=== PATIENT | male | born 1930 | race Caucasian/White ===

== ENCOUNTER 2016-05-31 10:04 | Inpatient (IN) | payer MEDICARE, OTHER ==
[2016-05-31] MEDS ORDERED: NS 0.9% 1000 ML* 1,000 ML IV ONE (10:16)
[2016-05-31 10:52] LABS: Add Diff/Slide Review? Slide Review Added; Comments Flag Yes; Hematocrit 42 % (42-52); Hemoglobin 14.3 g/dl (14.0-18.0); Mean Corpuscular HGB Conc 34 g/dl (31-36); Mean Corpuscular Hemoglobin 29 pg (27-31); Mean Corpuscular Volume 86 fL (80-94); Mean Platelet Volume 8 um3 (7.4-10.4); Red Blood Count 4.91 10^6/ul (4.0-5.4); Red Cell Distribution Width 14 % (10.5-15); White Blood Count 13.8 10^3/ul (3.5-10.8)
--- NOTE | 2016-05-31 10:52 | RAD ---
Indication: Altered mental status. Recent falls. Fever. Comparison: September 22, 2015. Technique: Upright AP 1025 hours Report: Minimal prominence of the interstitial markings without gross change. No alveolar consolidation, focal pulmonary lesion, pleural effusion, pneumothorax. Median sternotomy wires and prosthetic aortic valve. Upper normal heart size. Unremarkable central pulmonary vasculature. IMPRESSION: No compelling evidence for pneumonia. Negative for pulmonary edema.
[2016-05-31 11:07] LABS: ALT 15 U/L (7-52); AST 19 U/L (13-39); Albumin 3.9 g/dL (3.2-5.2); Alkaline Phosphatase 126 U/L (34-104); Anion Gap 10 mmol/L (2-11); BUN/Creatinine Ratio 31.9 (8-20); Blood Urea Nitrogen 23 mg/dL (6-24); CO2 Carbon Dioxide 23 mmol/L (22-32); Calcium 9.1 mg/dL (8.6-10.3); Chloride 102 mmol/L (101-111); Creatine Kinase 58 U/L (10-223); EGFR African American 132.8 (>60); EGFR Non-African American 103.3 (>60); Globulin 3.3 g/dL (2-4); Glucose 104 mg/dL (70-100); Magnesium 1.7 mg/dL (1.9-2.7); Potassium 3.2 mmol/L (3.5-5.0); Sodium 135 mmol/L (133-145); Total Protein 7.2 g/dL (6.4-8.9)
[2016-05-31 11:11] LABS: Troponin I 0.03 ng/mL (<0.04)
[2016-05-31] MEDS ORDERED: Acetaminophen TAB* 325 MG PO ONE (11:33)
[2016-05-31 12:01] LABS: Alcohol < 10 mg/dL (<10)
[2016-05-31 12:12] LABS: TSH (Thyroid Stimulating Horm) 1.67 mcIU/mL (0.34-5.60)
--- NOTE | 2016-05-31 12:12 | RAD ---
Indication: Altered mental status. Fall. Fever. Comparison: October 10, 2015 CT. Technique: Noncontrast CT vertex of skull through foramen magnum. Report: Unremarkable cerebral sulci. Mild to moderate prominence of the ventricles reflecting volume loss. Patent basal cisterns. Negative for alexander matter white matter obscuration, intra or extra-axial hemorrhage, or mass effect. Decreased density in the periventricular and subcortical white matter while non-specific is most likely due to chronic microangiopathy. Large vessel atherosclerotic arterial calcification at the skull base. Negative for fracture or suspicious lesion of the calvarium or skull base. Clear visualized paranasal sinuses and mastoid air spaces. Negative for scalp hematoma. IMPRESSION: 1. No evidence for traumatic injury or acute intracranial process. 2. Mild involutional change and stigmata of chronic small vessel ischemic disease. 3. No significant interval change compared with the September 22, 2015 exam.
[2016-05-31] MEDS ORDERED: Potassium Chlor TAB* 20 MEQ TAB.ER PO ONE (13:05)
[2016-05-31] MEDS ORDERED: Magnesium Oxide TAB* 400 MG PO ONE (13:06)
[2016-05-31] MEDS ORDERED: Oseltamivir CAP* 75 MG PO ONE (13:06)
--- NOTE | 2016-05-31 13:54 | ED ---
Jessica Blevins Rebecca, scribed for Gold Paredes MD on 05/31/16 at 1017 . Adult Trauma - HPI Summary HPI Summary: Pt is a 65 y/o M BIBA who presents to ED s/p multiple falls. Reports falls were a few days ago and that he has fallen 2-3x. Reports that he recently stubbed his toe, leading to the falls. Denies currently experiencing any pain including head, neck, back or hip pain. Denies CP, SOB, LOC. C/o coughing and low grade fever. - History of Current Complaint Stated Complaint: FALL / FEVER Time Seen by Provider: 05/31/16 10:05 Hx Obtained From: Patient Mechanism of Injury: Fall - 2-3x a few days ago Loss of Consciousness: no loss of consciousness Current Severity: None Pain Intensity: 0 Pain Scale Used: 0-10 Numeric Aggravating Factor(s): Other - No pain Alleviating Factor(s): Other - No pain Associated Signs & Symptoms: Positive: Cough, Fever - low grade. Negative: SOB , Chest Pain, Loss of Consciousness - Additional Pertinent History Primary Care Physician: [id number] - Allergy/Home Medications Allergies/Adverse Reactions: Allergies Allergy/AdvReac Type Severity Reaction Status Date / Time SULFA DRUGS Allergy VIOLENT Uncoded 01/31/15 13:17 BEHAVIOR- VOCALLY-1940'S PMH/Surg Hx/FS Hx/Imm Hx Endocrine/Hematology History: Denies: Hx Diabetes, Hx Thyroid Disease Cardiovascular History: Reports: Hx Cardiomegaly, Hx Coronary Artery Disease - 2010- TRIPLE BYPASS, Hx Hypertension, Hx Valvular Heart Disease - AORTIC VALVE REPLACEMENT-01/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 KAMARA- [employer] Denies: Hx Pacemaker/ICD Respiratory History: Denies: Hx Asthma, Hx Chronic Obstructive Pulmonary Disease (COPD) GI History: Denies: Hx Ulcer History: Reports: Hx Benign Prostatic Hyperplasia Denies: Hx Dialysis, Hx Renal Disease Comment Only: Other Problems/Disorders - urinary surgery unable to specify ; urinary incontinence with Tyson, TURP Musculoskeletal History: Reports: Other Musculoskeletal History - INJURY TO LOWER BACK VERTABRAE ON THE RIGHT SIDE - DID PHYSICAL THERAPY FOR Sensory History: Reports: Hx Cataracts, Hx Contacts or Glasses, Hx Glaucoma Denies: Hx Legally Blind, Hx Deafness, Hx Hearing Aid, Hx Hearing Problem Opthamlomology History: Reports: Hx Cataracts, Hx Contacts or Glasses, Hx Glaucoma Denies: Hx Legally Blind Neurological History: Reports: Hx Transient Ischemic Attacks (TIA) - 04/2013 Denies: Other Neuro Impairments/Disorders Psychiatric History: Denies: Hx Panic Disorder - Surgical History Surgery Procedure, Year, and Place: Triple bypass 2010 with Porcine tissue heart valve(pig valve safe upto 3Tmagnet)-[facility]. Right knee replacement - [facility]. TURP. tonsils. appendix. bilater cataract Hx Anesthesia Reactions: No - Immunization History Date of Tetanus Vaccine: PT STATES UNSURE Date of Influenza Vaccine: 2012 Infectious Disease History: No Infectious Disease History: Denies: Hx Clostridium Difficile, Hx Hepatitis, Hx Human Immunodeficiency Virus (HIV), Hx of Known/Suspected MRSA, Hx Shingles, Hx Tuberculosis, Hx Known/ Suspected VRE, Hx Known/Suspected VRSA, History Other Infectious Disease, Traveled Outside the [place] in Last 30 Days - Family History Known Family History: Positive: Cardiac Disease, Other - Colon CA - Social History Alcohol Use: Daily Alcohol Amount: 3-4 OUNCES DAILY Substance Use Type: Reports: None Hx Tobacco Use: Yes - [employer] Smoking Status (MU): Former Smoker Type: Cigars Amount Used/How Often: X 2 YEARS Have You Smoked in the Last Year: No Review of Systems Positive: Fever - low grade Negative: Chest Pain Positive: Cough. Negative: Shortness Of Breath Positive: Arthralgia - Denies any pain including neck, hip or back pain Negative: Headache, Syncope - Denies LOC All Other Systems Reviewed And Are Negative: Yes Physical Exam - Summary Physical Exam Summary: He is a fragile, elderly man that appears very dry and slightly confused. Slight rales in the bases auscultated. Triage Information Reviewed: Yes Vital Signs On Initial Exam: Initial Vitals Temp Pulse Resp BP Pulse Ox 100.1 F 87 18 156/104 91 05/31/16 10:18 05/31/16 10:18 05/31/16 10:18 05/31/16 10:18 05/31/16 10:18 Vital Signs Reviewed: Yes Appearance: Positive: No Pain Distress Skin: Positive: Warm, Skin Color Reflects Adequate Perfusion, Dry Head/Face: Positive: Normal Head/Face Inspection Eyes: Positive: EOMI, NELL ENT: Positive: Other - Very dry oral mucosa Neck: Positive: Supple, Nontender Respiratory/Lung Sounds: Positive: Breath Sounds Present, Rales - slight rales in the bases Cardiovascular: Positive: RRR, Pulses are Symmetrical in both Upper and Lower Extremities Musculoskeletal: Positive: Normal, Strength/ROM Intact Neurological: Positive: Normal, Sensory/Motor Intact, Other - Slightly confused Psychiatric: Positive: Normal, Affect/Mood Appropriate Diagnostics - Vital Signs Vital Signs Temp Pulse Resp BP Pulse Ox 05/31/16 13:00 78 101/48 89 05/31/16 12:30 79 19 120/73 95 05/31/16 12:00 94 22 144/75 93 05/31/16 11:31 87 91 05/31/16 11:30 142/72 05/31/16 11:06 92 20 05/31/16 11:02 101.3 F 92 20 138/73 92 05/31/16 10:18 100.1 F 87 18 156/104 91 - Laboratory Lab Results: Lab Results 05/31/16 05/31/16 05/31/16 Range/Units 10:40 10:40 10:40 WBC 13.8 H (3.5-10.8) 10^3/ul RBC 4.91 (4.0-5.4) 10^6/ul Hgb 14.3 (14.0-18.0) g/dl Hct 42 (42-52) % MCV 86 (80-94) fL MCH 29 (27-31) pg MCHC 34 (31-36) g/dl RDW 14 (10.5-15) % Plt Count 124 L (150-450) 10^3/ul MPV 8 (7.4-10.4) um3 Neut % (Auto) 92.1 H (38-83) % Lymph % (Auto) 3.0 L (25-47) % [place] % (Auto) 4.5 (1-9) % Eos % (Auto) 0.1 (0-6) % Baso % (Auto) 0.3 (0-2) % Absolute Neuts (auto) 12.7 H (1.5-7.7) 10^3/ul Absolute Lymphs (auto) 0.4 L (1.0-4.8) 10^3/ul Absolute Monos (auto) 0.6 (0-0.8) 10^3/ul Absolute Eos (auto) 0 (0-0.6) 10^3/ul Absolute Basos (auto) 0 (0-0.2) 10^3/ul Absolute Nucleated RBC 0 10^3/ul Nucleated RBC % 0 Sodium 135 (133-145) mmol/L Potassium 3.2 L (3.5-5.0) mmol/L Chloride 102 (101-111) mmol/L Carbon Dioxide 23 (22-32) mmol/L Anion Gap 10 (2-11) mmol/L BUN 23 (6-24) mg/dL Creatinine 0.72 (0.67-1.17) mg/dL Est GFR ( Amer) 132.8 (>60) Est GFR (Non-Af Amer) 103.3 (>60) BUN/Creatinine Ratio 31.9 H (8-20) Glucose 104 H (70-100) mg/dL Lactic Acid 1.1 (0.5-2.0) mmol/L Calcium 9.1 (8.6-10.3) mg/dL Magnesium 1.7 L (1.9-2.7) mg/dL Total Bilirubin 1.90 H (0.2-1.0) mg/dL AST 19 (13-39) U/L ALT 15 (7-52) U/L Alkaline Phosphatase 126 H (34-104) U/L Ammonia (16-53) mol/L Total Creatine Kinase 58 (10-223) U/L Troponin I 0.03 (<0.04) ng/mL Total Protein 7.2 (6.4-8.9) g/dL Albumin 3.9 (3.2-5.2) g/dL Globulin 3.3 (2-4) g/dL Albumin/Globulin Ratio 1.2 (1-3) TSH 1.67 (0.34-5.60) mcIU/mL Serum Alcohol < 10 (<10) mg/dL Influenza A (Rapid) (Negative) Influenza B (Rapid) (Negative) 05/31/16 05/31/16 Range/Units 10:40 11:00 WBC (3.5-10.8) 10^3/ul RBC (4.0-5.4) 10^6/ul Hgb (14.0-18.0) g/dl Hct (42-52) % MCV (80-94) fL MCH (27-31) pg MCHC (31-36) g/dl RDW (10.5-15) % Plt Count (150-450) 10^3/ul MPV (7.4-10.4) um3 Neut % (Auto) (38-83) % Lymph % (Auto) (25-47) % [place] % (Auto) (1-9) % Eos % (Auto) (0-6) % Baso % (Auto) (0-2) % Absolute Neuts (auto) (1.5-7.7) 10^3/ul Absolute Lymphs (auto) (1.0-4.8) 10^3/ul Absolute Monos (auto) (0-0.8) 10^3/ul Absolute Eos (auto) (0-0.6) 10^3/ul Absolute Basos (auto) (0-0.2) 10^3/ul Absolute Nucleated RBC 10^3/ul Nucleated RBC % Sodium (133-145) mmol/L Potassium (3.5-5.0) mmol/L Chloride (101-111) mmol/L Carbon Dioxide (22-32) mmol/L Anion Gap (2-11) mmol/L BUN (6-24) mg/dL Creatinine (0.67-1.17) mg/dL Est GFR ( Amer) (>60) Est GFR (Non-Af Amer) (>60) BUN/Creatinine Ratio (8-20) Glucose (70-100) mg/dL Lactic Acid (0.5-2.0) mmol/L Calcium (8.6-10.3) mg/dL Magnesium (1.9-2.7) mg/dL Total Bilirubin (0.2-1.0) mg/dL AST (13-39) U/L ALT (7-52) U/L Alkaline Phosphatase (34-104) U/L Ammonia 39 (16-53) mol/L Total Creatine Kinase (10-223) U/L Troponin I (<0.04) ng/mL Total Protein (6.4-8.9) g/dL Albumin (3.2-5.2) g/dL Globulin (2-4) g/dL Albumin/Globulin Ratio (1-3) TSH (0.34-5.60) mcIU/mL Serum Alcohol (<10) mg/dL Influenza A (Rapid) Negative (Negative) Influenza B (Rapid) Positive H (Negative) Result Diagrams: 05/31/16 10:40 05/31/16 10:40 Lab Statement: Any lab studies that have been ordered have been reviewed, and results considered in the medical decision making process. - Radiology CXR Xray Interpretation: No Acute Changes - No compelling evidence for pneumonia. Negative for pulmonary edema. Radiology Interpretation Completed By: Radiologist - CT Brain CT CT Interpretation: No Acute Changes - 1. No evidence for traumatic injury or acute intracranial process. 2. Mild involutional change and stigmata of chronic small vessel ischemic disease. 3. No significant interval change compared with the September 22, [address] Interpretation Completed By: Radiologist - EKG 1235 Cardiac Rate: NL - 81 bpm EKG Rhythm: Sinus Rhythm ST Segment: Normal - No ST elevations Adult Trauma Course/Dx - Course Assessment/Plan: Pt is a 65 y/o M BIBA who presents to ED s/p multiple falls. Reports falls were a few days ago and that he has fallen 2-3x. Reports that he recently stubbed his toe, leading to the falls. Denies currently experiencing any pain including head, neck, back or hip pain. Denies CP, SOB, LOC. C/o coughing and low grade fever. Bloodwork shows WBC of 13.8, platelet of 124, potassium of 3.2, glucose of 104, magnesium of 1.7, and Influenza B positive. CXR reveals no acute pathology. Head CT shows no acute intracranial pathology. In the ED course, pt was given potassium chloride for hypokalemia and magnesium for the hypomagnesemia. The pt also was given Tamiflu for the Influenza type B positive. The pt also was hydrated with fluids. Seeing as the pt appears very weak and has had multiple falls at home, I believe pt is unsafe for D/C. Therefore I discussed the case with Dr. Ortiz who accepts pt for admission. Pt is hemodynamically stable and AxOx3. - Diagnoses Differential Diagnosis/HQI/PQRI: Positive: Abrasion(s), Contusion(s), Sprain, Strain, Other - fall, CVA, TIA, Sepsis Provider Diagnoses: Influenza B, Weakness, Multiple falls, Confusion - Physician Notifications Discussed Care Of Patient With: Dr. Ortiz, hospitalist, who accepts pt for admission. Time Discussed With Above Provider: 13:00 Discharge - Discharge Plan Condition: Stable Disposition: ADMITTED TO [facility] Referrals: Trevor Ku MD [Primary Care Provider] - The documentation as recorded by the Jessica villavicencio Rebecca accurately reflects the service I personally performed and the decisions made by , Gold Paredes MD.
[2016-05-31] MEDS ORDERED: Albuterol 2.5 MG/3 ML NEB.SOL* (0.083%) INH PRN (14:02)
[2016-05-31] MEDS: Potassium Chlor TAB* 20 MEQ TAB.ER PO SCH ×2 (14:48→22:03)
[2016-05-31] MEDS: Enoxaparin(*) 40 MG/0.4 ML SYR SUBCUT SCH (14:48)
[2016-05-31] MEDS: NS 0.9% 1000 ML* 1,000 ML IV SCH (14:48)
[2016-05-31] MEDS ORDERED: Atorvastatin* 20 MG TAB PO SCH (18:00)
[2016-05-31] MEDS ORDERED: Latanoprost 0.005%* 2.5 ml BTL BOTH EYES SCH (18:00)
[2016-05-31] MEDS: Latanoprost 0.005%* 2.5 ml BTL BOTH EYES SCH (22:03)
[2016-05-31] MEDS: Atorvastatin* 20 MG TAB PO SCH (22:03)
[2016-05-31] MEDS: Acetaminophen TAB* 325 MG PO PRN (22:04)
[2016-05-31] MEDS: Oseltamivir CAP* 75 MG PO SCH (22:04)
--- NOTE | 2016-05-31 22:37 | HP ---
HISTORY AND PHYSICAL: DATE OF ADMISSION: 05/31/16 PRIMARY CARE PHYSICIAN: Trevor Ku MD CHIEF COMPLAINT: Fall and fever. HISTORY OF PRESENT ILLNESS: Mr. Hoffman is an 85-year-old male with a past medical history of hypertension; hyperlipidemia; CAD, status post MD and CABG; BPH; and TIAs, who presents to the hospital with weakness this morning as well as fever. The patient states symptoms began about a week ago with a cough that has been productive of yellowish sputum. He is a resident at [facility] and lives with his . He apparently saw a nurse practitioner there on because of the cough and they did not think there was anything to be done. Cough has persisted and this morning, the patient went to the bathroom and after getting to bed, he awoke his saying that he had to go to the bathroom again; however, he felt very week and had a lot of difficulty even sitting up. He was eventually able to get his legs to the side of the bed and dangle them and then he slid down the bed on to the floor, did not strike his head. His could not get him up off the floor. She took his temperature and he had a fever over 100. She called the nurse to take his vital signs, which were otherwise unremarkable. He subsequently called EMS. The patient denies any sick contacts. He is not on home oxygen. He had no fever until today. Denies any chest pain, shortness of breath, abdominal pain, nausea, vomiting, diarrhea, or constipation. He has been having good p.o. intake. PAST MEDICAL HISTORY: Hypertension; hyperlipidemia; CAD, status post MD and CABG; BPH; urinary retention; gout; glaucoma; and TIA. PAST SURGICAL HISTORY: CABG, aortic valve replacement with a porcine valve, TURP, right TKA, and cataract surgery. HOME MEDICATIONS: 1. Potassium 20 mEq by mouth 3 times daily. 2. Ambien 5 mg by mouth at bedtime as needed for insomnia. 3. Dutasteride 0.5 mg by mouth daily. 4. Latanoprost 1 drop both eyes nightly. 5. Istalol 1 drop in both eyes daily. 6. Atorvastatin 20 mg by mouth nightly. 7. Plavix 75 mg by mouth daily. 8. Amlodipine 2.5 mg by mouth daily. 9. Allopurinol 150 mg by mouth daily. FAMILY HISTORY: Significant for father with CAD and Alzheimer's and mother with CVA. SOCIAL HISTORY: The patient smoked for a short period a long and long time ago. He has occasional alcohol, maybe 1 drink every 2 weeks. Denies any illicit drug use. He is a former [employer] at [employer]. REVIEW OF SYSTEMS: A 12-point review of systems is negative except for that is noted in the HPI. PHYSICAL EXAMINATION GENERAL: The patient is an elderly frail-appearing male, lying in bed , in no apparent distress. VITAL SIGNS: On admission, temperature 100.1, subsequently 101.3; heart rate of 87; respiratory rate of 18; O2 saturation 91% on 2 L subsequently about to 4 ; and initial blood pressure 156/104 followed by 138/73. HEENT: Anicteric sclera. Dry mucous membranes. No cervical adenopathy. LUNGS: With moderate air movement. Some faint wheezing and scattered rales. CARDIOVASCULAR: Regular rate and rhythm. S1, S2 present. No murmurs, gallops , and rubs. ABDOMEN: Soft, nontender, and nondistended. Bowel sounds positive. EXTREMITIES: No cyanosis, clubbing, or edema. NEURO: The patient is alert and oriented x3. No focal neurological deficits. DIAGNOSTIC STUDIES/LAB DATA: White blood cell count of 13.8, hematocrit of 42 , and platelets of 124. Sodium of 135, potassium 3.2, chloride of 102, carbon dioxide of 23, BUN of 23, creatinine of 0.72, glucose of 104, lactic acid of 1.1 , and magnesium of 1.7. Total bilirubin of 1.9, AST of 19, ALT of 15, and alk phos of 126. Troponin 0.03. TSH of 1.67. Rapid influenza positive for influenza type B. CT of head shows no acute disease. EKG personally reviewed shows normal sinus rhythm with PVCs. Chest x-ray, personally reviewed, shows no acute disease. ASSESSMENT AND PLAN: Acute hypoxemic respiratory failure secondary to influenza type B in an 85-year-old male with past medical history of hypertension, hyperlipidemia, coronary artery disease, and transient ischemic attack. 1. Acute hypoxic respiratory failure secondary to influenza: The patient was on 4 L in the ED; however, has been weaned to 2. Given a dose of Tamiflu in the ED, which we will continue b.i.d. for 5 days total. We will order some p.r.n. nebulizer therapy and try to wean his oxygen. I do not think there is a bacterial infection. I will check a procalcitonin, however. UA is also pending at this time. We will continue IV fluids at 100 cc per hour. 2. Electrolyte abnormalities: Potassium and magnesium repleted. 3. Hypertension: We will hold home amlodipine for now. 4. Benign prostatic hyperplasia: Finasteride in place of home dutasteride. 5. Coronary artery disease: Continue home Plavix and atorvastatin. 6. Cataracts: Continue eye drops. 7. Gout: Continue home allopurinol. 8. DVT prophylaxis: Lovenox subcu. 9. Code status: The patient wishes to be DNR with a trial of intubation. MOLST form filled out without effect. The patient's and surrogate decision maker, Dominique Arcetfried, is at the bedside. Phone number is [phone]. TIME SPENT: Total time spent on this admission 45 minutes, with over half the time spent [id number] with the patient in counseling and coordinating care. CC: [place] [id number]/[facility] #: [id number] MTDD
[2016-06-01 01:26] LABS: Urine Bacteria Absent (Absent); Urine Bilirubin Negative (Negative); Urine Glucose Negative (Negative); Urine Nitrite Negative (Negative)
[2016-06-01] MEDS: NS 0.9% 1000 ML* 1,000 ML IV SCH (03:23)
[2016-06-01] MEDS: Acetaminophen TAB* 325 MG PO PRN (05:05)
[2016-06-01 08:33] LABS: Hematocrit 38 % (42-52); Hemoglobin 12.9 g/dl (14.0-18.0); Mean Corpuscular HGB Conc 34 g/dl (31-36); Mean Corpuscular Hemoglobin 29 pg (27-31); Mean Corpuscular Volume 87 fL (80-94); Mean Platelet Volume 9 um3 (7.4-10.4); Red Blood Count 4.38 10^6/ul (4.0-5.4); Red Cell Distribution Width 14 % (10.5-15)
[2016-06-01 08:45] LABS: Add Diff/Slide Review? Slide Review Added; Comments Flag Yes
[2016-06-01 08:48] LABS: BUN/Creatinine Ratio 26.7 (8-20); Calcium 8.5 mg/dL (8.6-10.3); EGFR African American 126.7 (>60); EGFR Non-African American 98.5 (>60); Globulin 2.7 g/dL (2-4); Total Bilirubin 1.7 mg/dL (0.2-1.0); Total Protein 5.7 g/dL (6.4-8.9)
[2016-06-01] MEDS: Finasteride TAB* 5 MG PO SCH (09:22)
[2016-06-01] MEDS: Potassium Chlor TAB* 20 MEQ TAB.ER PO SCH ×3 (09:22→21:28)
[2016-06-01] MEDS: Oseltamivir CAP* 75 MG PO SCH ×2 (09:22→21:28)
[2016-06-01] MEDS: Clopidogrel TAB* 75 MG PO SCH (09:22)
[2016-06-01] MEDS: Allopurinol TAB* 300 MG PO SCH (09:22)
[2016-06-01 09:43] LABS: Immature Granulocytes 15 % (0-9); Metamyelocytes % 1 % (0-2); Neutrophil % 69 % (38-83); RBC Morphology Normal (Normal)
[2016-06-01] MEDS ORDERED: Furosemide IV* 10 MG/ML 2 ML VIAL (20 MG) IV ONE (09:54)
--- NOTE | 2016-06-01 10:01 | PN ---
Subjective Date of Service: 06/01/16 Interval History: Patient seen this morning. Reports he did not sleep well, very upset about this. Still coughing but feels it is improved. Has been weaned off of O2 at rest however had significant drop to low 80s with ambulation. No further fever or chills. Family History: Unchanged from Admission Social History: Unchanged from Admission Past Medical History: Unchanged from Admission Objective Active Medications: Acetaminophen (Tylenol Tab*) 650 mg PO Q4H PRN Albuterol (Ventolin 2.5 Mg/3 Ml Neb.Daelia*) 2.5 mg INH Q4H PRN Allopurinol (Zyloprim Tab*) 150 mg PO QAM KONRAD Atorvastatin Calcium (Lipitor*) 20 mg PO BEDTIME KONRAD Clopidogrel Bisulfate (Plavix Tab*) 75 mg PO QAM KONRAD Enoxaparin Sodium (Lovenox(*)) 40 mg SUBCUT Q24H KONRAD Finasteride (Proscar Tab*) 5 mg PO DAILY KONRAD Latanoprost (Xalatan 0.005%*) 1 drop BOTH EYES BEDTIME KONRAD Oseltamivir Phosphate (Tamiflu Cap*) 75 mg PO BID KONRAD Potassium Chloride (Klor Con Er Tab*) 20 meq PO TID KONRAD Zolpidem Tartrate (Ambien Tab*) 5 mg PO BEDTIME PRN Vital Signs 05/31/16 05/31/16 05/31/16 14:13 14:19 14:37 Temperature 98.1 F 98.1 F Pulse Rate 88 88 Respiratory 16 16 16 Rate Blood Pressure 119/52 119/52 (mmHg) O2 Sat by Pulse 91 93 Oximetry 06/01/16 06/01/16 06/01/16 07:50 08:00 09:21 Temperature 97.6 F Pulse Rate 65 66 Respiratory 14 16 16 Rate Blood Pressure 115/62 (mmHg) O2 Sat by Pulse 92 94 Oximetry Oxygen Devices in Use Now: None Appearance: Elderly, frail-appearing M, laying in bed in NAD Eyes: No Scleral Icterus Ears/Nose/Mouth/Throat: Mucous Membranes Moist Neck: NL Appearance and Movements; NL JVP Respiratory: Symmetrical Chest Expansion and Respiratory Effort, - - No wheezing , absent BS in bases with some rales Cardiovascular: NL Sounds; No Murmurs; No JVD, RRR Abdominal: NL Sounds; No Tenderness; No Distention Lymphatic: No Cervical Adenopathy Extremities: No Edema Skin: No Rash or Ulcers Neurological: Alert and Oriented x 3 Result Diagrams: 06/01/16 08:04 06/01/16 08:01 Additional Lab and Data: Lab Results 05/31/16 05/31/16 05/31/16 Range/Units 10:40 10:40 10:40 WBC 13.8 H (3.5-10.8) 10^3/ul RBC 4.91 (4.0-5.4) 10^6/ul Hgb 14.3 (14.0-18.0) g/dl Hct 42 (42-52) % MCV 86 (80-94) fL MCH 29 (27-31) pg MCHC 34 (31-36) g/dl RDW 14 (10.5-15) % Plt Count 124 L (150-450) 10^3/ul MPV 8 (7.4-10.4) um3 Neut % (Auto) 92.1 H (38-83) % Lymph % (Auto) 3.0 L (25-47) % [place] % (Auto) 4.5 (1-9) % Eos % (Auto) 0.1 (0-6) % Baso % (Auto) 0.3 (0-2) % Absolute Neuts (auto) 12.7 H (1.5-7.7) 10^3/ul Absolute Lymphs (auto) 0.4 L (1.0-4.8) 10^3/ul Absolute Monos (auto) 0.6 (0-0.8) 10^3/ul Absolute Eos (auto) 0 (0-0.6) 10^3/ul Absolute Basos (auto) 0 (0-0.2) 10^3/ul Absolute Nucleated RBC 0 10^3/ul Nucleated RBC % 0 Sodium 135 (133-145) mmol/L Potassium 3.2 L (3.5-5.0) mmol/L Chloride 102 (101-111) mmol/L Carbon Dioxide 23 (22-32) mmol/L Anion Gap 10 (2-11) mmol/L BUN 23 (6-24) mg/dL Creatinine 0.72 (0.67-1.17) mg/dL Est GFR ( Amer) 132.8 (>60) Est GFR (Non-Af Amer) 103.3 (>60) BUN/Creatinine Ratio 31.9 H (8-20) Glucose 104 H (70-100) mg/dL Lactic Acid 1.1 (0.5-2.0) mmol/L Calcium 9.1 (8.6-10.3) mg/dL Magnesium 1.7 L (1.9-2.7) mg/dL Total Bilirubin 1.90 H (0.2-1.0) mg/dL AST 19 (13-39) U/L ALT 15 (7-52) U/L Alkaline Phosphatase 126 H (34-104) U/L Ammonia (16-53) mol/L Total Creatine Kinase 58 (10-223) U/L Troponin I 0.03 (<0.04) ng/mL Total Protein 7.2 (6.4-8.9) g/dL Albumin 3.9 (3.2-5.2) g/dL Globulin 3.3 (2-4) g/dL Albumin/Globulin Ratio 1.2 (1-3) TSH 1.67 (0.34-5.60) mcIU/mL Serum Alcohol < 10 (<10) mg/dL Influenza A (Rapid) (Negative) Influenza B (Rapid) (Negative) 05/31/16 05/31/16 Range/Units 10:40 11:00 WBC (3.5-10.8) 10^3/ul RBC (4.0-5.4) 10^6/ul Hgb (14.0-18.0) g/dl Hct (42-52) % MCV (80-94) fL MCH (27-31) pg MCHC (31-36) g/dl RDW (10.5-15) % Plt Count (150-450) 10^3/ul MPV (7.4-10.4) um3 Neut % (Auto) (38-83) % Lymph % (Auto) (25-47) % [place] % (Auto) (1-9) % Eos % (Auto) (0-6) % Baso % (Auto) (0-2) % Absolute Neuts (auto) (1.5-7.7) 10^3/ul Absolute Lymphs (auto) (1.0-4.8) 10^3/ul Absolute Monos (auto) (0-0.8) 10^3/ul Absolute Eos (auto) (0-0.6) 10^3/ul Absolute Basos (auto) (0-0.2) 10^3/ul Absolute Nucleated RBC 10^3/ul Nucleated RBC % Sodium (133-145) mmol/L Potassium (3.5-5.0) mmol/L Chloride (101-111) mmol/L Carbon Dioxide (22-32) mmol/L Anion Gap (2-11) mmol/L BUN (6-24) mg/dL Creatinine (0.67-1.17) mg/dL Est GFR ( Amer) (>60) Est GFR (Non-Af Amer) (>60) BUN/Creatinine Ratio (8-20) Glucose (70-100) mg/dL Lactic Acid (0.5-2.0) mmol/L Calcium (8.6-10.3) mg/dL Magnesium (1.9-2.7) mg/dL Total Bilirubin (0.2-1.0) mg/dL AST (13-39) U/L ALT (7-52) U/L Alkaline Phosphatase (34-104) U/L Ammonia 39 (16-53) mol/L Total Creatine Kinase (10-223) U/L Troponin I (<0.04) ng/mL Total Protein (6.4-8.9) g/dL Albumin (3.2-5.2) g/dL Globulin (2-4) g/dL Albumin/Globulin Ratio (1-3) TSH (0.34-5.60) mcIU/mL Serum Alcohol (<10) mg/dL Influenza A (Rapid) Negative (Negative) Influenza B (Rapid) Positive H (Negative) Assess/Plan/Problems-Billing Assessment: Acute hypoxemic respiratory failure 2/2 influenza B in an 85 yo M with hx of HTN , HLD, TIA, CAD, BPH - Patient Problems (1) Acute hypoxemic respiratory failure Current Visit: Yes Comment: 2/2 influenza, maybe some contribution from IVF. Will continue Tamiflu. Will give IV Lasix x1. Consider d/c with oxygen vs stay in the hospital. Procalcitonin in indeterminate range and leukocytosis resolved , no ABx. (2) HTN (hypertension) Current Visit: Yes Comment: BPs still soft, holding home amlodipine (3) CAD (coronary artery disease) Current Visit: Yes Comment: Continue Plavix and statin (4) BPH (benign prostatic hyperplasia) Current Visit: Yes Comment: Finasteride (5) DVT prophylaxis Current Visit: Yes Comment: Lovenox Status and Disposition: Pending improvement in hypoxia vs starting home O2
[2016-06-01] MEDS: Enoxaparin(*) 40 MG/0.4 ML SYR SUBCUT SCH (14:23)
[2016-06-01] MEDS: Zolpidem TAB* 5 MG PO PRN (21:28)
[2016-06-01] MEDS: Atorvastatin* 20 MG TAB PO SCH (21:28)
[2016-06-01] MEDS: Latanoprost 0.005%* 2.5 ml BTL BOTH EYES SCH (21:28)
--- NOTE | 2016-06-02 02:23 | PN ---
Progress Note - Progress Note Note: Nursing & RT concerned regarding acute hypoxia. Patient is admitted for influenza. Tonight he acutely dropped his saO2 into the 80s on 3L NC. Switching to 10L oxymask only improved him to the high-80s. Upon arrival, nursing reports he is more confused than baseline. He states he is feeling better, but when asked where he was initially states [place], but then correct to [facility]. He appears in no acute distress. Additionally, nursing reports he coughed well and his saO2 improved to the 90s for a brief period before returning to the high 80s seeming to indicate mucous plugging as an etiology. CXR: interval development of R middle & lower lobe infiltrates Vitals: otherwise stable, afebrile Lungs: moderately diminished on R, fair aeration, clear CV: RRR abdomen: SNTND extremities: W&D Assessment: plan RML & RLL pneumonia : add piperacillin/tazobactam IV : transfer to ICU : RT to try flutter valve to mobilize secretions, may use manual CPT if this is not effective : code status is DNR/trial of intubation
[2016-06-02] MEDS ORDERED: Piperac/Tazob 3.375 gm in NS* 3.375 GM/100 ML BAG IVPB ONE (02:30)
[2016-06-02] MEDS ORDERED: NS 0.9% 1000 ML* 1,000 ML IV SCH (02:30)
[2016-06-02 04:10] LABS: Hematocrit 39 % (42-52); Mean Corpuscular HGB Conc 33 g/dl (31-36); Mean Corpuscular Hemoglobin 29 pg (27-31); Mean Corpuscular Volume 87 fL (80-94); Mean Platelet Volume 8 um3 (7.4-10.4); Red Blood Count 4.48 10^6/ul (4.0-5.4); Red Cell Distribution Width 14 % (10.5-15); White Blood Count 7.6 10^3/ul (3.5-10.8)
[2016-06-02 04:17] LABS: Add Diff/Slide Review? Slide Review Added; Comments Flag Yes
[2016-06-02 04:26] LABS: BUN/Creatinine Ratio 27.6 (8-20); Calcium 9.1 mg/dL (8.6-10.3); EGFR African American 124.8 (>60); Globulin 3.1 g/dL (2-4); Magnesium 1.8 mg/dL (1.9-2.7); Potassium 4.2 mmol/L (3.5-5.0); Total Bilirubin 1.6 mg/dL (0.2-1.0); Total Protein 6.1 g/dL (6.4-8.9)
[2016-06-02 04:29] LABS: Troponin I 0.06 ng/mL (<0.04)
[2016-06-02 04:37] LABS: Immature Granulocytes 21 % (0-9); Metamyelocytes % 1 % (0-2); Neutrophil % 67 % (38-83); Reactive Lymph % 2 % (0-6)
[2016-06-02 04:39] LABS: RBC Morphology Normal (Normal); Toxic Granulation 1+
[2016-06-02] MEDS: Piperac/Tazob 3.375 gm in NS* 3.375 GM/100 ML BAG IVPB SCH ×2 (07:26→15:31)
--- NOTE | 2016-06-02 08:24 | PN ---
Subjective Date of Service: 06/02/16 Interval History: Events reviewed Oxygen desaturation to 80s with increased confusion overnight. Transferred to ICU and placed on vapotherm with improvement. This AM +cough but feels improved. Denies SOB or CP No N/V but decreased appetite No other complaints Family History: Unchanged from Admission Social History: Unchanged from Admission Past Medical History: Unchanged from Admission Objective Active Medications: Acetaminophen (Tylenol Tab*) 650 mg PO Q4H PRN PRN Reason: FEVER/PAIN Last Admin: 06/01/16 05:05 Dose: 650 mg Albuterol (Ventolin 2.5 Mg/3 Ml Neb.Adelia*) 2.5 mg INH Q4H PRN PRN Reason: SOB/WHEEZING Allopurinol (Zyloprim Tab*) 150 mg PO QAM [facility] Last Admin: 06/01/16 09:22 Dose: 150 mg Atorvastatin Calcium (Lipitor*) 20 mg PO BEDTIME [facility] Last Admin: 06/01/16 21:28 Dose: 20 mg Clopidogrel Bisulfate (Plavix Tab*) 75 mg PO QAM [facility] Last Admin: 06/01/16 09:22 Dose: 75 mg Enoxaparin Sodium (Lovenox(*)) 40 mg SUBCUT Q24H [facility] Last Admin: 06/01/16 14:23 Dose: 40 mg Finasteride (Proscar Tab*) 5 mg PO DAILY [facility] Last Admin: 06/01/16 09:22 Dose: 5 mg Piperacillin Sod/Tazobactam Sod (Zosyn 3.375 Gm In Ns Premix*) 3.375 gm in 100 mls @ 25 mls/hr IVPB Q8H [facility] Last Admin: 06/02/16 07:26 Dose: 25 mls/hr Latanoprost (Xalatan 0.005%*) 1 drop BOTH EYES BEDTIME [facility] Last Admin: 06/01/16 21:28 Dose: 1 drop Oseltamivir Phosphate (Tamiflu Cap*) 75 mg PO BID [facility] Stop: 06/04/16 21:01 Last Admin: 06/01/16 21:28 Dose: 75 mg Potassium Chloride (Klor Con Er Tab*) 20 meq PO TID [facility] Last Admin: 06/01/16 21:28 Dose: 20 meq Zolpidem Tartrate (Ambien Tab*) 5 mg PO BEDTIME PRN PRN Reason: INSOMNIA Last Admin: 06/01/16 21:28 Dose: 5 mg Vital Signs 06/01/16 06/01/16 06/01/16 20:00 20:39 23:42 Temperature 99.1 F Pulse Rate 85 97 Respiratory 20 17 16 Rate Blood Pressure 136/70 (mmHg) O2 Sat by Pulse 92 83 Oximetry 06/02/16 06/02/16 06/02/16 00:00 00:12 02:50 Temperature 99.1 F Pulse Rate 97 Respiratory 16 Rate Blood Pressure 136/70 162/118 (mmHg) O2 Sat by Pulse 85 83 Oximetry 06/02/16 06/02/16 06/02/16 02:51 03:00 03:21 Temperature 99.3 F Pulse Rate 92 94 89 Respiratory 12 27 20 Rate Blood Pressure 160/85 160/85 (mmHg) O2 Sat by Pulse 90 94 97 Oximetry 06/02/16 06/02/16 06/02/16 04:00 04:49 04:54 Temperature 99.5 F Pulse Rate 83 84 Respiratory 20 20 25 Rate Blood Pressure 160/75 160/75 (mmHg) O2 Sat by Pulse 94 93 Oximetry 06/02/16 06/02/16 06/02/16 05:00 05:06 06:00 Temperature Pulse Rate 96 79 Respiratory 24 21 22 Rate Blood Pressure 152/87 (mmHg) O2 Sat by Pulse 84 97 Oximetry 06/02/16 06/02/16 07:00 07:36 Temperature 99.6 F Pulse Rate 81 Respiratory 21 Rate Blood Pressure 154/85 (mmHg) O2 Sat by Pulse 96 Oximetry Oxygen Devices in Use Now: High Flow Nasal Cannula - 100% 30L Appearance: interactive sitting up in bed, NAD Eyes: No Scleral Icterus, PERRLA Ears/Nose/Mouth/Throat: - - dry MM Neck: NL Appearance and Movements; NL JVP, Trachea Midline Respiratory: Symmetrical Chest Expansion and Respiratory Effort, - - diffuse rhonchi Cardiovascular: RRR Abdominal: NL Sounds; No Tenderness; No Distention, No Hepatosplenomegaly Lymphatic: No Cervical Adenopathy Extremities: No Edema Neurological: Alert and Oriented x 3 Result Diagrams: 06/02/16 03:45 06/02/16 03:45 Additional Lab and Data: Lab Results 05/31/16 05/31/16 05/31/16 Range/Units 10:40 10:40 10:40 WBC 13.8 H (3.5-10.8) 10^3/ul RBC 4.91 (4.0-5.4) 10^6/ul Hgb 14.3 (14.0-18.0) g/dl Hct 42 (42-52) % MCV 86 (80-94) fL MCH 29 (27-31) pg MCHC 34 (31-36) g/dl RDW 14 (10.5-15) % Plt Count 124 L (150-450) 10^3/ul MPV 8 (7.4-10.4) um3 Neut % (Auto) 92.1 H (38-83) % Lymph % (Auto) 3.0 L (25-47) % Christian % (Auto) 4.5 (1-9) % Eos % (Auto) 0.1 (0-6) % Baso % (Auto) 0.3 (0-2) % Absolute Neuts (auto) 12.7 H (1.5-7.7) 10^3/ul Absolute Lymphs (auto) 0.4 L (1.0-4.8) 10^3/ul Absolute Monos (auto) 0.6 (0-0.8) 10^3/ul Absolute Eos (auto) 0 (0-0.6) 10^3/ul Absolute Basos (auto) 0 (0-0.2) 10^3/ul Absolute Nucleated RBC 0 10^3/ul Nucleated RBC % 0 Sodium 135 (133-145) mmol/L Potassium 3.2 L (3.5-5.0) mmol/L Chloride 102 (101-111) mmol/L Carbon Dioxide 23 (22-32) mmol/L Anion Gap 10 (2-11) mmol/L BUN 23 (6-24) mg/dL Creatinine 0.72 (0.67-1.17) mg/dL Est GFR ( Amer) 132.8 (>60) Est GFR (Non-Af Amer) 103.3 (>60) BUN/Creatinine Ratio 31.9 H (8-20) Glucose 104 H (70-100) mg/dL Lactic Acid 1.1 (0.5-2.0) mmol/L Calcium 9.1 (8.6-10.3) mg/dL Magnesium 1.7 L (1.9-2.7) mg/dL Total Bilirubin 1.90 H (0.2-1.0) mg/dL AST 19 (13-39) U/L ALT 15 (7-52) U/L Alkaline Phosphatase 126 H (34-104) U/L Ammonia (16-53) mol/L Total Creatine Kinase 58 (10-223) U/L Troponin I 0.03 (<0.04) ng/mL Total Protein 7.2 (6.4-8.9) g/dL Albumin 3.9 (3.2-5.2) g/dL Globulin 3.3 (2-4) g/dL Albumin/Globulin Ratio 1.2 (1-3) TSH 1.67 (0.34-5.60) mcIU/mL Serum Alcohol < 10 (<10) mg/dL Influenza A (Rapid) (Negative) Influenza B (Rapid) (Negative) 05/31/16 05/31/16 Range/Units 10:40 11:00 WBC (3.5-10.8) 10^3/ul RBC (4.0-5.4) 10^6/ul Hgb (14.0-18.0) g/dl Hct (42-52) % MCV (80-94) fL MCH (27-31) pg MCHC (31-36) g/dl RDW (10.5-15) % Plt Count (150-450) 10^3/ul MPV (7.4-10.4) um3 Neut % (Auto) (38-83) % Lymph % (Auto) (25-47) % Christian % (Auto) (1-9) % Eos % (Auto) (0-6) % Baso % (Auto) (0-2) % Absolute Neuts (auto) (1.5-7.7) 10^3/ul Absolute Lymphs (auto) (1.0-4.8) 10^3/ul Absolute Monos (auto) (0-0.8) 10^3/ul Absolute Eos (auto) (0-0.6) 10^3/ul Absolute Basos (auto) (0-0.2) 10^3/ul Absolute Nucleated RBC 10^3/ul Nucleated RBC % Sodium (133-145) mmol/L Potassium (3.5-5.0) mmol/L Chloride (101-111) mmol/L Carbon Dioxide (22-32) mmol/L Anion Gap (2-11) mmol/L BUN (6-24) mg/dL Creatinine (0.67-1.17) mg/dL Est GFR ( Amer) (>60) Est GFR (Non-Af Amer) (>60) BUN/Creatinine Ratio (8-20) Glucose (70-100) mg/dL Lactic Acid (0.5-2.0) mmol/L Calcium (8.6-10.3) mg/dL Magnesium (1.9-2.7) mg/dL Total Bilirubin (0.2-1.0) mg/dL AST (13-39) U/L ALT (7-52) U/L Alkaline Phosphatase (34-104) U/L Ammonia 39 (16-53) mol/L Total Creatine Kinase (10-223) U/L Troponin I (<0.04) ng/mL Total Protein (6.4-8.9) g/dL Albumin (3.2-5.2) g/dL Globulin (2-4) g/dL Albumin/Globulin Ratio (1-3) TSH (0.34-5.60) mcIU/mL Serum Alcohol (<10) mg/dL Influenza A (Rapid) Negative (Negative) Influenza B (Rapid) Positive H (Negative) Microbiology and Other Data: Microbiology 06/02/16 03:00 Nasal Screen MRSA (PCR)([facility]) - Final Nasal Mrsa Negative Assess/Plan/Problems-Billing Assessment: Acute hypoxemic respiratory failure 2/2 influenza B in an 85 yo M with hx of HTN , HLD, TIA, CAD, BPH - Patient Problems (1) Acute hypoxemic respiratory failure Comment: Suspect superimosed bacterial PNA on viral influenza PNA continue Tamiflu. Staretd zosyn overnight Holding on vancomycin Holdin diuresis but with attention to I/O. May beed lasix to optimize performance (2) HTN (hypertension) Comment: Low yesterday and increased today holding amlodipine may point towards component of volume contributing to resp failure (3) BPH (benign prostatic hyperplasia) Comment: Finasteride (4) CAD (coronary artery disease) Comment: Continue Plavix and statin (5) DVT prophylaxis Comment: Lovenox Status and Disposition: Pending improvement in hypoxia vs starting home O2
--- NOTE | 2016-06-02 08:24 | RAD ---
Indication: Respiratory distress. Single frontal view of the chest performed at 0145 hours was reviewed. Comparison is made with previous exam dated May 31, 2016. No mediastinal shift is noted. There is cardiomegaly noted. Patient is status post transsternal thoracotomy. Cardiomegaly is noted. Bibasilar airspace disease is noted. Additional patchy right upper lobe infiltrate is noted. No pneumothorax is noted. IMPRESSION: FINDINGS CONSISTENT WITH BIBASILAR PNEUMONIA AND PATCHY RIGHT UPPER LOBE CONSOLIDATION.
[2016-06-02] MEDS: Clopidogrel TAB* 75 MG PO SCH (08:47)
[2016-06-02] MEDS: Allopurinol TAB* 300 MG PO SCH (08:47)
[2016-06-02] MEDS: Oseltamivir CAP* 75 MG PO SCH ×2 (08:47→20:48)
[2016-06-02] MEDS: Finasteride TAB* 5 MG PO SCH (08:47)
[2016-06-02] MEDS: Potassium Chlor TAB* 20 MEQ TAB.ER PO SCH ×3 (08:47→20:48)
[2016-06-02] MEDS: Enoxaparin(*) 40 MG/0.4 ML SYR SUBCUT SCH (13:15)
[2016-06-02] MEDS: Acetaminophen TAB* 325 MG PO PRN (15:22)
[2016-06-02] MEDS: Atorvastatin* 20 MG TAB PO SCH (20:48)
[2016-06-02] MEDS: Latanoprost 0.005%* 2.5 ml BTL BOTH EYES SCH (20:49)
[2016-06-02] MEDS: Zolpidem TAB* 5 MG PO PRN (20:50)
[2016-06-03] MEDS: Piperac/Tazob 3.375 gm in NS* 3.375 GM/100 ML BAG IVPB SCH ×4 (00:08→23:54)
[2016-06-03 06:09] LABS: Hematocrit 37 % (42-52); Hemoglobin 12.4 g/dl (14.0-18.0); Mean Corpuscular HGB Conc 34 g/dl (31-36); Mean Corpuscular Hemoglobin 29 pg (27-31); Mean Corpuscular Volume 87 fL (80-94); Mean Platelet Volume 9 um3 (7.4-10.4); Red Blood Count 4.21 10^6/ul (4.0-5.4); Red Cell Distribution Width 14 % (10.5-15); White Blood Count 10.3 10^3/ul (3.5-10.8)
[2016-06-03 06:10] LABS: Add Diff/Slide Review? Slide Review Added; Comments Flag Yes
[2016-06-03 06:25] LABS: Calcium 8.9 mg/dL (8.6-10.3); EGFR African American 130.7 (>60); EGFR Non-African American 101.6 (>60); Potassium 3.8 mmol/L (3.5-5.0)
[2016-06-03 06:37] LABS: Immature Granulocytes 5 % (0-9); Metamyelocytes % 1 % (0-2); Neutrophil % 75 % (38-83); Reactive Lymph % 4 % (0-6)
[2016-06-03 06:38] LABS: Macrocytosis 1+; Polychromasia 1+; Toxic Granulation 2+
[2016-06-03] MEDS: Potassium Chlor TAB* 20 MEQ TAB.ER PO SCH ×3 (08:07→19:58)
[2016-06-03] MEDS: Allopurinol TAB* 300 MG PO SCH (08:07)
[2016-06-03] MEDS: Oseltamivir CAP* 75 MG PO SCH ×2 (08:07→19:57)
[2016-06-03] MEDS: Finasteride TAB* 5 MG PO SCH (08:07)
[2016-06-03] MEDS: Clopidogrel TAB* 75 MG PO SCH (08:08)
[2016-06-03] MEDS ORDERED: Zolpidem TAB* 10 MG PO PRN (13:35)
--- NOTE | 2016-06-03 13:54 | PN ---
Subjective Date of Service: 06/03/16 Interval History: Pt feels "bad". Has a mild headache, feels tired. SOB better. Family History: Unchanged from Admission Social History: Unchanged from Admission Past Medical History: Unchanged from Admission Objective Active Medications: Acetaminophen (Tylenol Tab*) 650 mg PO Q4H PRN PRN Reason: FEVER/PAIN Last Admin: 06/02/16 15:22 Dose: 650 mg Albuterol (Ventolin 2.5 Mg/3 Ml Neb.Adelia*) 2.5 mg INH Q4H PRN PRN Reason: SOB/WHEEZING Allopurinol (Zyloprim Tab*) 150 mg PO QAM [facility] Last Admin: 06/03/16 08:07 Dose: 150 mg Atorvastatin Calcium (Lipitor*) 20 mg PO BEDTIME [facility] Last Admin: 06/02/16 20:48 Dose: 20 mg Clopidogrel Bisulfate (Plavix Tab*) 75 mg PO QAM [facility] Last Admin: 06/03/16 08:08 Dose: 75 mg Enoxaparin Sodium (Lovenox(*)) 40 mg SUBCUT Q24H [facility] Last Admin: 06/02/16 13:15 Dose: 40 mg Finasteride (Proscar Tab*) 5 mg PO DAILY [facility] Last Admin: 06/03/16 08:07 Dose: 5 mg Piperacillin Sod/Tazobactam Sod (Zosyn 3.375 Gm In Ns Premix*) 3.375 gm in 100 mls @ 25 mls/hr IVPB Q8H [facility] Last Admin: 06/03/16 08:06 Dose: 25 mls/hr Latanoprost (Xalatan 0.005%*) 1 drop BOTH EYES BEDTIME [facility] Last Admin: 06/02/16 20:49 Dose: 1 drop Oseltamivir Phosphate (Tamiflu Cap*) 75 mg PO BID [facility] Stop: 06/04/16 21:01 Last Admin: 06/03/16 08:07 Dose: 75 mg Potassium Chloride (Klor Con Er Tab*) 20 meq PO TID [facility] Last Admin: 06/03/16 08:07 Dose: 20 meq Zolpidem Tartrate (Ambien Tab*) 10 mg PO BEDTIME PRN PRN Reason: INSOMNIA Vital Signs 06/02/16 06/02/16 06/02/16 14:00 14:24 15:00 Temperature Pulse Rate 84 78 81 Respiratory 27 23 18 Rate Blood Pressure 140/79 153/80 (mmHg) O2 Sat by Pulse 96 95 96 Oximetry 06/02/16 06/02/16 06/02/16 15:30 15:56 16:00 Temperature 100.5 F Pulse Rate 77 Respiratory 27 18 Rate Blood Pressure 143/81 (mmHg) O2 Sat by Pulse 97 Oximetry 06/02/16 06/02/16 06/02/16 16:53 17:00 18:00 Temperature Pulse Rate 74 69 Respiratory 17 20 20 Rate Blood Pressure 148/84 154/87 (mmHg) O2 Sat by Pulse 95 95 Oximetry 06/02/16 06/02/16 06/02/16 19:00 20:00 21:00 Temperature 98.0 F Pulse Rate 74 83 73 Respiratory 23 25 22 Rate Blood Pressure 135/75 125/77 135/73 (mmHg) O2 Sat by Pulse 94 90 96 Oximetry 06/02/16 06/02/16 06/02/16 22:00 23:00 23:53 Temperature Pulse Rate 71 71 70 Respiratory 21 19 25 Rate Blood Pressure 151/79 151/98 (mmHg) O2 Sat by Pulse 96 96 93 Oximetry 06/03/16 06/03/16 06/03/16 00:00 00:12 01:00 Temperature Pulse Rate 71 69 70 Respiratory 22 19 23 Rate Blood Pressure 140/76 141/77 (mmHg) O2 Sat by Pulse 92 94 92 Oximetry 06/03/16 06/03/16 06/03/16 02:00 03:00 04:00 Temperature 98.2 F Pulse Rate 79 70 68 Respiratory 18 21 19 Rate Blood Pressure 151/82 153/81 (mmHg) O2 Sat by Pulse 95 94 97 Oximetry 06/03/16 06/03/16 06/03/16 05:00 06:00 07:00 Temperature Pulse Rate 73 66 65 Respiratory 20 20 17 Rate Blood Pressure 159/79 159/76 156/87 (mmHg) O2 Sat by Pulse 96 95 98 Oximetry 06/03/16 06/03/16 06/03/16 08:00 08:15 09:00 Temperature 99.2 F Pulse Rate 64 71 73 Respiratory 20 18 21 Rate Blood Pressure 148/85 141/102 (mmHg) O2 Sat by Pulse 97 95 96 Oximetry 06/03/16 06/03/16 06/03/16 10:00 11:00 11:43 Temperature 97.6 F Pulse Rate 80 80 Respiratory 20 18 Rate Blood Pressure 140/83 (mmHg) O2 Sat by Pulse 89 94 Oximetry 06/03/16 12:00 Temperature Pulse Rate 72 Respiratory 16 Rate Blood Pressure 146/80 (mmHg) O2 Sat by Pulse 96 Oximetry Oxygen Devices in Use Now: High Flow Nasal Cannula - [place] at 10L, 02 sat 99 % Appearance: 85 yo M in nAd, AAOx3 Eyes: No Scleral Icterus, PERRLA Ears/Nose/Mouth/Throat: NL Teeth, Lips, Gums, Mucous Membranes Moist Neck: NL Appearance and Movements; NL JVP, Trachea Midline Respiratory: Symmetrical Chest Expansion and Respiratory Effort, - - R mild lung rhonchi Cardiovascular: NL Sounds; No Murmurs; No JVD, RRR Abdominal: NL Sounds; No Tenderness; No Distention Lymphatic: No Cervical Adenopathy Extremities: No Edema, No Clubbing, Cyanosis Skin: No Rash or Ulcers, No Nodules or Sclerosis Neurological: Alert and Oriented x 3, NL Muscle Strength and Tone Result Diagrams: 06/03/16 05:45 06/03/16 05:45 Additional Lab and Data: Lab Results 05/31/16 05/31/16 05/31/16 Range/Units 10:40 10:40 10:40 WBC 13.8 H (3.5-10.8) 10^3/ul RBC 4.91 (4.0-5.4) 10^6/ul Hgb 14.3 (14.0-18.0) g/dl Hct 42 (42-52) % MCV 86 (80-94) fL MCH 29 (27-31) pg MCHC 34 (31-36) g/dl RDW 14 (10.5-15) % Plt Count 124 L (150-450) 10^3/ul MPV 8 (7.4-10.4) um3 Neut % (Auto) 92.1 H (38-83) % Lymph % (Auto) 3.0 L (25-47) % [place] % (Auto) 4.5 (1-9) % Eos % (Auto) 0.1 (0-6) % Baso % (Auto) 0.3 (0-2) % Absolute Neuts (auto) 12.7 H (1.5-7.7) 10^3/ul Absolute Lymphs (auto) 0.4 L (1.0-4.8) 10^3/ul Absolute Monos (auto) 0.6 (0-0.8) 10^3/ul Absolute Eos (auto) 0 (0-0.6) 10^3/ul Absolute Basos (auto) 0 (0-0.2) 10^3/ul Absolute Nucleated RBC 0 10^3/ul Nucleated RBC % 0 Sodium 135 (133-145) mmol/L Potassium 3.2 L (3.5-5.0) mmol/L Chloride 102 (101-111) mmol/L Carbon Dioxide 23 (22-32) mmol/L Anion Gap 10 (2-11) mmol/L BUN 23 (6-24) mg/dL Creatinine 0.72 (0.67-1.17) mg/dL Est GFR ( Amer) 132.8 (>60) Est GFR (Non-Af Amer) 103.3 (>60) BUN/Creatinine Ratio 31.9 H (8-20) Glucose 104 H (70-100) mg/dL Lactic Acid 1.1 (0.5-2.0) mmol/L Calcium 9.1 (8.6-10.3) mg/dL Magnesium 1.7 L (1.9-2.7) mg/dL Total Bilirubin 1.90 H (0.2-1.0) mg/dL AST 19 (13-39) U/L ALT 15 (7-52) U/L Alkaline Phosphatase 126 H (34-104) U/L Ammonia (16-53) mol/L Total Creatine Kinase 58 (10-223) U/L Troponin I 0.03 (<0.04) ng/mL Total Protein 7.2 (6.4-8.9) g/dL Albumin 3.9 (3.2-5.2) g/dL Globulin 3.3 (2-4) g/dL Albumin/Globulin Ratio 1.2 (1-3) TSH 1.67 (0.34-5.60) mcIU/mL Serum Alcohol < 10 (<10) mg/dL Influenza A (Rapid) (Negative) Influenza B (Rapid) (Negative) 05/31/16 05/31/16 Range/Units 10:40 11:00 WBC (3.5-10.8) 10^3/ul RBC (4.0-5.4) 10^6/ul Hgb (14.0-18.0) g/dl Hct (42-52) % MCV (80-94) fL MCH (27-31) pg MCHC (31-36) g/dl RDW (10.5-15) % Plt Count (150-450) 10^3/ul MPV (7.4-10.4) um3 Neut % (Auto) (38-83) % Lymph % (Auto) (25-47) % [place] % (Auto) (1-9) % Eos % (Auto) (0-6) % Baso % (Auto) (0-2) % Absolute Neuts (auto) (1.5-7.7) 10^3/ul Absolute Lymphs (auto) (1.0-4.8) 10^3/ul Absolute Monos (auto) (0-0.8) 10^3/ul Absolute Eos (auto) (0-0.6) 10^3/ul Absolute Basos (auto) (0-0.2) 10^3/ul Absolute Nucleated RBC 10^3/ul Nucleated RBC % Sodium (133-145) mmol/L Potassium (3.5-5.0) mmol/L Chloride (101-111) mmol/L Carbon Dioxide (22-32) mmol/L Anion Gap (2-11) mmol/L BUN (6-24) mg/dL Creatinine (0.67-1.17) mg/dL Est GFR ( Amer) (>60) Est GFR (Non-Af Amer) (>60) BUN/Creatinine Ratio (8-20) Glucose (70-100) mg/dL Lactic Acid (0.5-2.0) mmol/L Calcium (8.6-10.3) mg/dL Magnesium (1.9-2.7) mg/dL Total Bilirubin (0.2-1.0) mg/dL AST (13-39) U/L ALT (7-52) U/L Alkaline Phosphatase (34-104) U/L Ammonia 39 (16-53) mol/L Total Creatine Kinase (10-223) U/L Troponin I (<0.04) ng/mL Total Protein (6.4-8.9) g/dL Albumin (3.2-5.2) g/dL Globulin (2-4) g/dL Albumin/Globulin Ratio (1-3) TSH (0.34-5.60) mcIU/mL Serum Alcohol (<10) mg/dL Influenza A (Rapid) Negative (Negative) Influenza B (Rapid) Positive H (Negative) Microbiology and Other Data: Microbiology 06/02/16 03:00 Nasal Screen MRSA (PCR)([facility]) - Final Nasal [facility] Negative Assess/Plan/Problems-Billing Assessment: Acute hypoxemic respiratory failure 2/2 influenza B in an 85 yo M with hx of HTN , HLD, TIA, CAD, BPH - Patient Problems (1) Acute hypoxemic respiratory failure Comment: Suspect superimposed bacterial PNA on viral influenza PNA continue Tamiflu. cont Zosyn. weaning off 02. Possible transfer to [facility] floor tonight (2) CAD (coronary artery disease) Comment: Continue Plavix and statin mild elevation it troponin due to demend ischemia. No c/o CP (3) HTN (hypertension) Comment: controlled holding amlodipine (4) BPH (benign prostatic hyperplasia) Comment: developed U retention on 06/02/16, now [place] in place. Will try to d/c it once more mobile. (5) DVT prophylaxis Comment: Lovenox Status and Disposition: inpatient
[2016-06-03] MEDS: Acetaminophen TAB* 325 MG PO PRN (14:19)
[2016-06-03] MEDS: Enoxaparin(*) 40 MG/0.4 ML SYR SUBCUT SCH (14:43)
[2016-06-03] MEDS: Atorvastatin* 20 MG TAB PO SCH (19:57)
[2016-06-03] MEDS: Latanoprost 0.005%* 2.5 ml BTL BOTH EYES SCH (19:57)
[2016-06-04] MEDS: Benzonatate CAP* 100 MG PO PRN ×3 (03:01→21:26)
[2016-06-04] MEDS: Acetaminophen TAB* 325 MG PO PRN (04:19)
[2016-06-04] MEDS: Piperac/Tazob 3.375 gm in NS* 3.375 GM/100 ML BAG IVPB SCH ×3 (07:58→23:32)
[2016-06-04] MEDS: Clopidogrel TAB* 75 MG PO SCH (08:00)
[2016-06-04] MEDS: Potassium Chlor TAB* 20 MEQ TAB.ER PO SCH ×3 (08:00→21:26)
[2016-06-04] MEDS: Oseltamivir CAP* 75 MG PO SCH ×2 (08:00→21:26)
[2016-06-04] MEDS: Finasteride TAB* 5 MG PO SCH (08:01)
[2016-06-04] MEDS: Allopurinol TAB* 300 MG PO SCH (08:01)
--- NOTE | 2016-06-04 10:30 | PN ---
Subjective Date of Service: 06/04/16 Interval History: Feels much better. Still coughing. On 05-25 L [place]. Family History: Unchanged from Admission Social History: Unchanged from Admission Past Medical History: Unchanged from Admission Objective Active Medications: Acetaminophen (Tylenol Tab*) 650 mg PO Q4H PRN PRN Reason: FEVER/PAIN Last Admin: 06/04/16 04:19 Dose: 650 mg Albuterol (Ventolin 2.5 Mg/3 Ml Neb.Adelia*) 2.5 mg INH Q4H PRN PRN Reason: SOB/WHEEZING Allopurinol (Zyloprim Tab*) 150 mg PO QAM [facility] Last Admin: 06/04/16 08:01 Dose: 150 mg Atorvastatin Calcium (Lipitor*) 20 mg PO BEDTIME [facility] Last Admin: 06/03/16 19:57 Dose: 20 mg Benzonatate (Tessalon Cap*) 100 mg PO TID PRN PRN Reason: COUGH Last Admin: 06/04/16 08:00 Dose: 100 mg Clopidogrel Bisulfate (Plavix Tab*) 75 mg PO QAM [facility] Last Admin: 06/04/16 08:00 Dose: 75 mg Enoxaparin Sodium (Lovenox(*)) 40 mg SUBCUT Q24H [facility] Last Admin: 06/03/16 14:43 Dose: 40 mg Finasteride (Proscar Tab*) 5 mg PO DAILY [facility] Last Admin: 06/04/16 08:01 Dose: 5 mg Piperacillin Sod/Tazobactam Sod (Zosyn 3.375 Gm In Ns Premix*) 3.375 gm in 100 mls @ 25 mls/hr IVPB Q8H [facility] Last Admin: 06/04/16 07:58 Dose: 25 mls/hr Latanoprost (Xalatan 0.005%*) 1 drop BOTH EYES BEDTIME [facility] Last Admin: 06/03/16 19:57 Dose: 1 drop Oseltamivir Phosphate (Tamiflu Cap*) 75 mg PO BID [facility] Stop: 06/04/16 21:01 Last Admin: 06/04/16 08:00 Dose: 75 mg Potassium Chloride (Klor Con Er Tab*) 20 meq PO TID [facility] Last Admin: 06/04/16 08:00 Dose: 20 meq Zolpidem Tartrate (Ambien Tab*) 10 mg PO BEDTIME PRN PRN Reason: INSOMNIA Last Admin: 06/03/16 22:40 Dose: 10 mg Vital Signs 06/03/16 06/03/16 06/03/16 11:00 11:43 12:00 Temperature 97.6 F Pulse Rate 80 72 Respiratory 18 16 Rate Blood Pressure 140/83 146/80 (mmHg) O2 Sat by Pulse 94 96 Oximetry 06/03/16 06/03/16 06/03/16 13:00 14:00 15:00 Temperature Pulse Rate 75 79 75 Respiratory 22 21 20 Rate Blood Pressure 160/88 146/83 155/87 (mmHg) O2 Sat by Pulse 95 95 96 Oximetry 06/03/16 06/03/16 06/03/16 16:00 16:41 18:58 Temperature 97.9 F 97.4 F Pulse Rate 70 73 Respiratory 18 16 Rate Blood Pressure 163/93 137/80 (mmHg) O2 Sat by Pulse 96 96 93 Oximetry 06/03/16 06/03/16 06/04/16 20:00 22:49 00:00 Temperature 97.1 F Pulse Rate 96 63 Respiratory 16 16 Rate Blood Pressure 165/95 (mmHg) O2 Sat by Pulse 61 97 97 Oximetry 06/04/16 06/04/16 06/04/16 03:30 04:04 07:35 Temperature 98.1 F 97.8 F Pulse Rate 63 83 Respiratory 20 16 Rate Blood Pressure 154/93 145/91 (mmHg) O2 Sat by Pulse 95 96 86 Oximetry 06/04/16 06/04/16 08:00 08:57 Temperature Pulse Rate 68 Respiratory 20 18 Rate Blood Pressure (mmHg) O2 Sat by Pulse 92 98 Oximetry Oxygen Devices in Use Now: Nasal Cannula - at 3 L, 02 sat 96% Appearance: 85 yo M in NAd, aAOx3 Eyes: No Scleral Icterus, PERRLA Ears/Nose/Mouth/Throat: NL Teeth, Lips, Gums, Mucous Membranes Moist Neck: NL Appearance and Movements; NL JVP, Trachea Midline Respiratory: Symmetrical Chest Expansion and Respiratory Effort, - - L mid lung rhonchi Cardiovascular: NL Sounds; No Murmurs; No JVD, RRR Abdominal: NL Sounds; No Tenderness; No Distention Lymphatic: No Cervical Adenopathy Extremities: No Edema, No Clubbing, Cyanosis Skin: No Rash or Ulcers, No Nodules or Sclerosis Neurological: Alert and Oriented x 3, NL Muscle Strength and Tone Result Diagrams: 06/03/16 05:45 06/03/16 05:45 Additional Lab and Data: Lab Results 05/31/16 05/31/16 05/31/16 Range/Units 10:40 10:40 10:40 WBC 13.8 H (3.5-10.8) 10^3/ul RBC 4.91 (4.0-5.4) 10^6/ul Hgb 14.3 (14.0-18.0) g/dl Hct 42 (42-52) % MCV 86 (80-94) fL MCH 29 (27-31) pg MCHC 34 (31-36) g/dl RDW 14 (10.5-15) % Plt Count 124 L (150-450) 10^3/ul MPV 8 (7.4-10.4) um3 Neut % (Auto) 92.1 H (38-83) % Lymph % (Auto) 3.0 L (25-47) % Avery % (Auto) 4.5 (1-9) % Eos % (Auto) 0.1 (0-6) % Baso % (Auto) 0.3 (0-2) % Absolute Neuts (auto) 12.7 H (1.5-7.7) 10^3/ul Absolute Lymphs (auto) 0.4 L (1.0-4.8) 10^3/ul Absolute Monos (auto) 0.6 (0-0.8) 10^3/ul Absolute Eos (auto) 0 (0-0.6) 10^3/ul Absolute Basos (auto) 0 (0-0.2) 10^3/ul Absolute Nucleated RBC 0 10^3/ul Nucleated RBC % 0 Sodium 135 (133-145) mmol/L Potassium 3.2 L (3.5-5.0) mmol/L Chloride 102 (101-111) mmol/L Carbon Dioxide 23 (22-32) mmol/L Anion Gap 10 (2-11) mmol/L BUN 23 (6-24) mg/dL Creatinine 0.72 (0.67-1.17) mg/dL Est GFR ( Amer) 132.8 (>60) Est GFR (Non-Af Amer) 103.3 (>60) BUN/Creatinine Ratio 31.9 H (8-20) Glucose 104 H (70-100) mg/dL Lactic Acid 1.1 (0.5-2.0) mmol/L Calcium 9.1 (8.6-10.3) mg/dL Magnesium 1.7 L (1.9-2.7) mg/dL Total Bilirubin 1.90 H (0.2-1.0) mg/dL AST 19 (13-39) U/L ALT 15 (7-52) U/L Alkaline Phosphatase 126 H (34-104) U/L Ammonia (16-53) mol/L Total Creatine Kinase 58 (10-223) U/L Troponin I 0.03 (<0.04) ng/mL Total Protein 7.2 (6.4-8.9) g/dL Albumin 3.9 (3.2-5.2) g/dL Globulin 3.3 (2-4) g/dL Albumin/Globulin Ratio 1.2 (1-3) TSH 1.67 (0.34-5.60) mcIU/mL Serum Alcohol < 10 (<10) mg/dL Influenza A (Rapid) (Negative) Influenza B (Rapid) (Negative) 05/31/16 05/31/16 Range/Units 10:40 11:00 WBC (3.5-10.8) 10^3/ul RBC (4.0-5.4) 10^6/ul Hgb (14.0-18.0) g/dl Hct (42-52) % MCV (80-94) fL MCH (27-31) pg MCHC (31-36) g/dl RDW (10.5-15) % Plt Count (150-450) 10^3/ul MPV (7.4-10.4) um3 Neut % (Auto) (38-83) % Lymph % (Auto) (25-47) % Avery % (Auto) (1-9) % Eos % (Auto) (0-6) % Baso % (Auto) (0-2) % Absolute Neuts (auto) (1.5-7.7) 10^3/ul Absolute Lymphs (auto) (1.0-4.8) 10^3/ul Absolute Monos (auto) (0-0.8) 10^3/ul Absolute Eos (auto) (0-0.6) 10^3/ul Absolute Basos (auto) (0-0.2) 10^3/ul Absolute Nucleated RBC 10^3/ul Nucleated RBC % Sodium (133-145) mmol/L Potassium (3.5-5.0) mmol/L Chloride (101-111) mmol/L Carbon Dioxide (22-32) mmol/L Anion Gap (2-11) mmol/L BUN (6-24) mg/dL Creatinine (0.67-1.17) mg/dL Est GFR ( Amer) (>60) Est GFR (Non-Af Amer) (>60) BUN/Creatinine Ratio (8-20) Glucose (70-100) mg/dL Lactic Acid (0.5-2.0) mmol/L Calcium (8.6-10.3) mg/dL Magnesium (1.9-2.7) mg/dL Total Bilirubin (0.2-1.0) mg/dL AST (13-39) U/L ALT (7-52) U/L Alkaline Phosphatase (34-104) U/L Ammonia 39 (16-53) mol/L Total Creatine Kinase (10-223) U/L Troponin I (<0.04) ng/mL Total Protein (6.4-8.9) g/dL Albumin (3.2-5.2) g/dL Globulin (2-4) g/dL Albumin/Globulin Ratio (1-3) TSH (0.34-5.60) mcIU/mL Serum Alcohol (<10) mg/dL Influenza A (Rapid) Negative (Negative) Influenza B (Rapid) Positive H (Negative) Microbiology and Other Data: Microbiology 06/02/16 03:00 Nasal Screen MRSA (PCR)([facility]) - Final Nasal Mrsa Negative Assess/Plan/Problems-Billing Assessment: Acute hypoxemic respiratory failure 2/2 influenza B in an 85 yo M with hx of HTN , HLD, TIA, CAD, BPH - Patient Problems (1) Acute hypoxemic respiratory failure Comment: Suspect superimposed bacterial PNA on viral influenza PNA Pt was septic on admission , according to SOFA criteria continue Tamiflu. cont Zosyn. weaning off 02. (2) Toxic metabolic encephalopathy Comment: noted confused at admission, suspect due to sepsis. Now resolved (3) CAD (coronary artery disease) Comment: Continue Plavix and statin mild elevation it troponin due to demend ischemia. No c/o CP (4) HTN (hypertension) Comment: SBP in 150, restarting amlodipine (5) BPH (benign prostatic hyperplasia) Comment: developed U retention on 06/02/16, now Tyson in place. Will try to d/c it once more mobile. (6) DVT prophylaxis Comment: Lovenox Status and Disposition: inpatient
[2016-06-04] MEDS: Enoxaparin(*) 40 MG/0.4 ML SYR SUBCUT SCH (13:19)
[2016-06-04] MEDS: guaiFENesin/CODIEN 100MG-10MG* 5 ML UDC PO SCH (21:26)
[2016-06-04] MEDS: Atorvastatin* 20 MG TAB PO SCH (21:26)
[2016-06-04] MEDS: Latanoprost 0.005%* 2.5 ml BTL BOTH EYES SCH (21:27)
[2016-06-04] MEDS: Zolpidem TAB* 5 MG PO PRN (22:52)
[2016-06-05 05:51] LABS: Hematocrit 38 % (42-52); Hemoglobin 12.8 g/dl (14.0-18.0); Mean Corpuscular HGB Conc 34 g/dl (31-36); Mean Corpuscular Hemoglobin 29 pg (27-31); Mean Corpuscular Volume 87 fL (80-94); Mean Platelet Volume 8 um3 (7.4-10.4); Red Blood Count 4.38 10^6/ul (4.0-5.4); Red Cell Distribution Width 13 % (10.5-15); White Blood Count 8.4 10^3/ul (3.5-10.8)
[2016-06-05 05:53] LABS: Add Diff/Slide Review? Slide Review Added; Comments Flag Yes
[2016-06-05 06:13] LABS: BUN/Creatinine Ratio 23.4 (8-20); Calcium 8.8 mg/dL (8.6-10.3); EGFR African American 122.9 (>60); EGFR Non-African American 95.6 (>60); Potassium 3.6 mmol/L (3.5-5.0)
[2016-06-05 06:18] LABS: Eosinophils % 2 % (0-6); Immature Granulocytes 5 % (0-9); Myelocytes % 2 % (0-1); Neutrophil % 64 % (38-83); Reactive Lymph % 4 % (0-6)
[2016-06-05 06:19] LABS: RBC Morphology Normal (Normal)
[2016-06-05] MEDS: Piperac/Tazob 3.375 gm in NS* 3.375 GM/100 ML BAG IVPB SCH ×2 (07:44→16:21)
[2016-06-05] MEDS: amLODIPine TAB* 5 MG PO SCH (07:44)
[2016-06-05] MEDS: Potassium Chlor TAB* 20 MEQ TAB.ER PO SCH ×3 (07:45→21:40)
[2016-06-05] MEDS: Clopidogrel TAB* 75 MG PO SCH (07:45)
[2016-06-05] MEDS: Allopurinol TAB* 300 MG PO SCH (07:45)
[2016-06-05] MEDS: Finasteride TAB* 5 MG PO SCH (07:46)
--- NOTE | 2016-06-05 08:58 | PN ---
Subjective Date of Service: 06/05/16 Interval History: Pt feels well. Slept well after codeine administered for cough last night Family History: Unchanged from Admission Social History: Unchanged from Admission Past Medical History: Unchanged from Admission Objective Active Medications: Acetaminophen (Tylenol Tab*) 650 mg PO Q4H PRN PRN Reason: FEVER/PAIN Last Admin: 06/04/16 04:19 Dose: 650 mg Albuterol (Ventolin 2.5 Mg/3 Ml Neb.Adelia*) 2.5 mg INH Q4H PRN PRN Reason: SOB/WHEEZING Allopurinol (Zyloprim Tab*) 150 mg PO QAM [facility] Last Admin: 06/05/16 07:45 Dose: 150 mg Amlodipine Besylate (Norvasc Tab*) 10 mg PO DAILY [facility] Last Admin: 06/05/16 07:44 Dose: 10 mg Atorvastatin Calcium (Lipitor*) 20 mg PO BEDTIME [facility] Last Admin: 06/04/16 21:26 Dose: 20 mg Benzonatate (Tessalon Cap*) 100 mg PO TID PRN PRN Reason: COUGH Last Admin: 06/04/16 21:26 Dose: 100 mg Clopidogrel Bisulfate (Plavix Tab*) 75 mg PO QAM [facility] Last Admin: 06/05/16 07:45 Dose: 75 mg Enoxaparin Sodium (Lovenox(*)) 40 mg SUBCUT Q24H [facility] Last Admin: 06/04/16 13:19 Dose: 40 mg Finasteride (Proscar Tab*) 5 mg PO DAILY [facility] Last Admin: 06/05/16 07:46 Dose: 5 mg Guaifenesin/Codeine Phosphate (Robitussin Ac 100mg-10mg*) 5 ml PO BEDTIME [facility] Last Admin: 06/04/16 21:26 Dose: 5 ml Piperacillin Sod/Tazobactam Sod (Zosyn 3.375 Gm In Ns Premix*) 3.375 gm in 100 mls @ 25 mls/hr IVPB Q8H [facility] Last Admin: 06/05/16 07:44 Dose: 25 mls/hr Latanoprost (Xalatan 0.005%*) 1 drop BOTH EYES BEDTIME [facility] Last Admin: 06/04/16 21:27 Dose: 1 drop Potassium Chloride (Klor Con Er Tab*) 20 meq PO TID [facility] Last Admin: 06/05/16 07:45 Dose: 20 meq Zolpidem Tartrate (Ambien Tab*) 5 mg PO BEDTIME PRN PRN Reason: INSOMNIA Last Admin: 06/04/16 22:52 Dose: 5 mg Vital Signs 06/04/16 06/04/16 06/04/16 08:57 11:15 13:16 Temperature 98.2 F 97.9 F Pulse Rate 68 65 77 Respiratory 18 16 20 Rate Blood Pressure 158/81 147/92 (mmHg) O2 Sat by Pulse 98 95 91 Oximetry 06/04/16 06/04/16 06/04/16 15:28 19:29 20:25 Temperature 98.0 F 98.3 F Pulse Rate 81 77 Respiratory 18 16 20 Rate Blood Pressure 152/98 163/86 (mmHg) O2 Sat by Pulse 94 92 Oximetry 06/04/16 06/05/16 06/05/16 23:27 00:00 03:59 Temperature 98.5 F 97.3 F Pulse Rate 61 63 Respiratory 20 20 Rate Blood Pressure 177/82 169/87 (mmHg) O2 Sat by Pulse 97 97 96 Oximetry 06/05/16 06/05/16 06:39 07:11 Temperature 98.3 F Pulse Rate 68 Respiratory 18 20 Rate Blood Pressure 174/94 (mmHg) O2 Sat by Pulse 96 95 Oximetry Oxygen Devices in Use Now: Nasal Cannula - at 2 L Appearance: 85 yo M in nAD, aAOx3 Eyes: No Scleral Icterus, PERRLA Ears/Nose/Mouth/Throat: NL Teeth, Lips, Gums, Mucous Membranes Moist Neck: NL Appearance and Movements; NL JVP, Trachea Midline Respiratory: Symmetrical Chest Expansion and Respiratory Effort, - - crackles in L mid lung Cardiovascular: NL Sounds; No Murmurs; No JVD, RRR Abdominal: NL Sounds; No Tenderness; No Distention Lymphatic: No Cervical Adenopathy Extremities: No Edema, No Clubbing, Cyanosis Skin: No Rash or Ulcers, No Nodules or Sclerosis Neurological: Alert and Oriented x 3, NL Muscle Strength and Tone Result Diagrams: 06/05/16 04:47 06/05/16 04:47 Additional Lab and Data: Lab Results 05/31/16 05/31/16 05/31/16 Range/Units 10:40 10:40 10:40 WBC 13.8 H (3.5-10.8) 10^3/ul RBC 4.91 (4.0-5.4) 10^6/ul Hgb 14.3 (14.0-18.0) g/dl Hct 42 (42-52) % MCV 86 (80-94) fL MCH 29 (27-31) pg MCHC 34 (31-36) g/dl RDW 14 (10.5-15) % Plt Count 124 L (150-450) 10^3/ul MPV 8 (7.4-10.4) um3 Neut % (Auto) 92.1 H (38-83) % Lymph % (Auto) 3.0 L (25-47) % Geary % (Auto) 4.5 (1-9) % Eos % (Auto) 0.1 (0-6) % Baso % (Auto) 0.3 (0-2) % Absolute Neuts (auto) 12.7 H (1.5-7.7) 10^3/ul Absolute Lymphs (auto) 0.4 L (1.0-4.8) 10^3/ul Absolute Monos (auto) 0.6 (0-0.8) 10^3/ul Absolute Eos (auto) 0 (0-0.6) 10^3/ul Absolute Basos (auto) 0 (0-0.2) 10^3/ul Absolute Nucleated RBC 0 10^3/ul Nucleated RBC % 0 Sodium 135 (133-145) mmol/L Potassium 3.2 L (3.5-5.0) mmol/L Chloride 102 (101-111) mmol/L Carbon Dioxide 23 (22-32) mmol/L Anion Gap 10 (2-11) mmol/L BUN 23 (6-24) mg/dL Creatinine 0.72 (0.67-1.17) mg/dL Est GFR ( Amer) 132.8 (>60) Est GFR (Non-Af Amer) 103.3 (>60) BUN/Creatinine Ratio 31.9 H (8-20) Glucose 104 H (70-100) mg/dL Lactic Acid 1.1 (0.5-2.0) mmol/L Calcium 9.1 (8.6-10.3) mg/dL Magnesium 1.7 L (1.9-2.7) mg/dL Total Bilirubin 1.90 H (0.2-1.0) mg/dL AST 19 (13-39) U/L ALT 15 (7-52) U/L Alkaline Phosphatase 126 H (34-104) U/L Ammonia (16-53) mol/L Total Creatine Kinase 58 (10-223) U/L Troponin I 0.03 (<0.04) ng/mL Total Protein 7.2 (6.4-8.9) g/dL Albumin 3.9 (3.2-5.2) g/dL Globulin 3.3 (2-4) g/dL Albumin/Globulin Ratio 1.2 (1-3) TSH 1.67 (0.34-5.60) mcIU/mL Serum Alcohol < 10 (<10) mg/dL Influenza A (Rapid) (Negative) Influenza B (Rapid) (Negative) 05/31/16 05/31/16 Range/Units 10:40 11:00 WBC (3.5-10.8) 10^3/ul RBC (4.0-5.4) 10^6/ul Hgb (14.0-18.0) g/dl Hct (42-52) % MCV (80-94) fL MCH (27-31) pg MCHC (31-36) g/dl RDW (10.5-15) % Plt Count (150-450) 10^3/ul MPV (7.4-10.4) um3 Neut % (Auto) (38-83) % Lymph % (Auto) (25-47) % Geary % (Auto) (1-9) % Eos % (Auto) (0-6) % Baso % (Auto) (0-2) % Absolute Neuts (auto) (1.5-7.7) 10^3/ul Absolute Lymphs (auto) (1.0-4.8) 10^3/ul Absolute Monos (auto) (0-0.8) 10^3/ul Absolute Eos (auto) (0-0.6) 10^3/ul Absolute Basos (auto) (0-0.2) 10^3/ul Absolute Nucleated RBC 10^3/ul Nucleated RBC % Sodium (133-145) mmol/L Potassium (3.5-5.0) mmol/L Chloride (101-111) mmol/L Carbon Dioxide (22-32) mmol/L Anion Gap (2-11) mmol/L BUN (6-24) mg/dL Creatinine (0.67-1.17) mg/dL Est GFR ( Amer) (>60) Est GFR (Non-Af Amer) (>60) BUN/Creatinine Ratio (8-20) Glucose (70-100) mg/dL Lactic Acid (0.5-2.0) mmol/L Calcium (8.6-10.3) mg/dL Magnesium (1.9-2.7) mg/dL Total Bilirubin (0.2-1.0) mg/dL AST (13-39) U/L ALT (7-52) U/L Alkaline Phosphatase (34-104) U/L Ammonia 39 (16-53) mol/L Total Creatine Kinase (10-223) U/L Troponin I (<0.04) ng/mL Total Protein (6.4-8.9) g/dL Albumin (3.2-5.2) g/dL Globulin (2-4) g/dL Albumin/Globulin Ratio (1-3) TSH (0.34-5.60) mcIU/mL Serum Alcohol (<10) mg/dL Influenza A (Rapid) Negative (Negative) Influenza B (Rapid) Positive H (Negative) Microbiology and Other Data: Microbiology 06/02/16 03:00 Nasal Screen MRSA (PCR)([facility]) - Final Nasal Mrsa Negative Assess/Plan/Problems-Billing Assessment: Acute hypoxemic respiratory failure 2/2 influenza B in an 85 yo M with hx of HTN , HLD, TIA, CAD, BPH - Patient Problems (1) Acute hypoxemic respiratory failure Comment: Suspect superimposed bacterial PNA on viral influenza PNA Pt was septic on admission , according to SOFA criteria continue Tamiflu. cont Zosyn. weaning off 02. (2) Toxic metabolic encephalopathy Comment: noted confused at admission, suspect due to sepsis. Now resolved (3) CAD (coronary artery disease) Comment: Continue Plavix and statin mild elevation it troponin due to demand ischemia. No c/o CP (4) HTN (hypertension) Comment: uncontrolled. Will increase Norvasc today (5) BPH (benign prostatic hyperplasia) Comment: developed U retention on 06/02/16, now Tyson in place. D/c Tyson today. (6) DVT prophylaxis Comment: Lovenox Status and Disposition: inpatient, anticipated discharge to [facility] in AM.
[2016-06-05] MEDS ORDERED: amLODIPine TAB* 5 MG PO SCH (09:00)
[2016-06-05] MEDS: Enoxaparin(*) 40 MG/0.4 ML SYR SUBCUT SCH (12:58)
[2016-06-05] MEDS: guaiFENesin/CODIEN 100MG-10MG* 5 ML UDC PO SCH (21:40)
[2016-06-05] MEDS: Atorvastatin* 20 MG TAB PO SCH (21:40)
[2016-06-05] MEDS: Latanoprost 0.005%* 2.5 ml BTL BOTH EYES SCH (21:41)
[2016-06-06] MEDS: Zolpidem TAB* 5 MG PO PRN (00:16)
[2016-06-06] MEDS: Piperac/Tazob 3.375 gm in NS* 3.375 GM/100 ML BAG IVPB SCH ×2 (00:20→08:26)
[2016-06-06] MEDS: Acetaminophen TAB* 325 MG PO PRN (05:43)
[2016-06-06] MEDS ORDERED: Amoxicillin/Clavulanate TAB* 875 MG PO ONE (08:28)
[2016-06-06] MEDS: Allopurinol TAB* 300 MG PO SCH (08:32)
[2016-06-06] MEDS: amLODIPine TAB* 5 MG PO SCH (08:33)
[2016-06-06] MEDS: Potassium Chlor TAB* 20 MEQ TAB.ER PO SCH (08:33)
[2016-06-06] MEDS: Finasteride TAB* 5 MG PO SCH (08:34)
[2016-06-06] MEDS: Clopidogrel TAB* 75 MG PO SCH (08:34)
--- NOTE | 2016-06-06 11:07 | DS ---
DISCHARGE SUMMARY: DATE OF ADMISSION: 05/31/16 DATE OF DISCHARGE: 06/06/16 PRIMARY CARE PROVIDER: Dr. Ku. DISCHARGE DIAGNOSES: 1. Influenza B with sepsis present on admission. 2. Tlubxvrnjdwu-ld-nuyzuqlga bacterial pneumonia. 3. Toxic metabolic encephalopathy due to the above-mentioned, resolved. 4. Transient episode of urinary retention, resolved. SECONDARY DIAGNOSES: 1. Hypertension. 2. Hyperlipidemia. 3. History of coronary artery disease. 4. History of BPH. 5. History of TIA. 6. History of glaucoma. 7. Gout. 8. Status post coronary artery bypass grafting. 9. History of aortic valve replacement with porcine valve. MEDICATIONS AT DISCHARGE: Include: 1. Augmentin 875 mg p.o. b.i.d. for the next 4 days. Remaining medications are unchanged and include: 1. Istalol eye drops both eyes daily 2. Plavix 75 mg daily. 3. Potassium chloride 20 mEq 3 times a day. 4. Allopurinol 150 mg daily. 5. Amlodipine 2.5 mg daily. 6. Lipitor 20 mg daily. 7. Tessalon 100 mg t.i.d. p.r.n. 8. Avodart 0.5 mg daily. 9. Xalatan eye drops one drop both eyes q.p.m. 10. Ambien 5 mg at bedtime. LABORATORY DATA PRIOR TO DISCHARGE: On 06/05/16 - white blood cell count 8.1, hemoglobin 12.8, hematocrit 38, and platelets 169. Sodium 134, potassium 3.6, chloride 103, carbon dioxide 27, BUN 18, creatinine 0.77. Microbiology tests were positive influenza B. Blood cultures were negative to date. DIAGNOSTIC STUDIES: Chest x-ray reported on 06/02/16, impression: "Findings consistent with bibasilar pneumonia and patchy right upper lobe consolidation." HOSPITALIZATION COURSE: Josh Hoffman is an 85-year-old male with history of coronary artery disease and hypertension, who presented complaining of shortness of breath and coughing. The patient also was intermittently confused at admission, and was diagnosed with toxic metabolic encephalopathy. He was septic on admission due to influenza B as well as two days later diagnosed with bacterial pneumonia, which most likely was also present on admission. The patient was treated with Zosyn and Tamiflu. He actually developed worsening of his respiratory status a day prior to his admission and needed to be transferred to the ICU on high-flow oxygen. He developed acute hypoxemic respiratory failure, but that slowly resolved and he was able to weaned off high -flow oxygen and transferred to medical floor. When he was on high-flow oxygen in ICU, he also developed urinary retention and Tyson was placed which was discontinued a day prior to discharge with no problems with voiding afterwards. During his hospital stay, he completed 5 days of treatment with Tamiflu for influenza. He is to complete a total of 7 days of antibiotics for pneumonia, and he is going to be discharged on remaining 4 days of Augmentin at home. PHYSICAL EXAMINATION: At the time of discharge, blood pressure of 172/98; please note that was prior to the patient's medication administration in the morning. Heart rate of 76, respiratory rate 20, oxygen saturation 92% on room air, temperature 98.2. General: The patient is a very pleasant 85-year-old male who is in no acute distress. Alert, awake, and oriented x3. HEENT: Head : Atraumatic and normocephalic. Eyes: Pupils are equal and reactive to light and accommodation. Oropharynx clear. Mucosa moist. Neck: Supple. No JVD. No bruits bilaterally. Cardiovascular: Regular rate and rhythm. No murmur. Respiratory: Crackles in the left mid lung, otherwise clear. Abdomen: Soft, nontender. Bowel sounds present in all 4 quadrants. Extremities: There is no edema. Pulses +2 bilaterally. No clubbing or cyanosis. Neurologic evaluation : Speech clear. Cranial nerves II through XII grossly intact. Motor strength is 5/5 bilaterally. Psychiatric Evaluation: The patient is pleasant and cooperative with evaluation, oriented x3 although he does get occasionally forgetful. The patient is going to be transferred to nursing and rehab part of [facility] for rehabilitation. I suspect he will be okay to go back to independent living within the next couple of days or so. At discharge, he is recommended to follow up with Dr. Ku in approximately 4 to 7 days. TIME SPENT: Approximately 45 minutes were spent on discharge of this patient. Please note, this is a short summary of the patient's hospital stay; please refer to further medical records for details. CC: Dr. Ku; Anu * [id number]/[facility] #: [id number] [facility]
[2016-06-06 11:36] VITALS: BP 141/86
== END 2016-06-06 12:02 | DRG 871 ==
LOC: ED 10:04 → MED 13:03 → OBSVTOIN 06-01 18:07 → MCHPEDS 06-02 02:56 → ICU 06-02 03:00 → MEDTELE 06-03 15:09
PROVIDERS: ADMIT Hospitalist; ATTEND Internal Medicine
DX: A41.89 Other specified sepsis (principal); J96.01 Acute respiratory failure with hypoxia; J10.08 Influenza due to other identified influenza virus with other specified pneumonia; G93.41 Metabolic encephalopathy; J15.9 Unspecified bacterial pneumonia; R65.20 Severe sepsis without septic shock; I10 Essential (primary) hypertension; E78.5 Hyperlipidemia, unspecified; I25.10 Atherosclerotic heart disease of native coronary artery without angina pectoris; H40.9 Unspecified glaucoma; M10.9 Gout, unspecified; N40.1 Benign prostatic hyperplasia with lower urinary tract symptoms; R33.8 Other retention of urine; I25.2 Old myocardial infarction; Z66 Do not resuscitate; Z91.81 History of falling; Z95.1 Presence of aortocoronary bypass graft; Z86.73 Personal history of transient ischemic attack (TIA), and cerebral infarction without residual deficits; Z95.3 Presence of xenogenic heart valve; Z96.651 Presence of right artificial knee joint; Z79.02 Long term (current) use of antithrombotics/antiplatelets; Z82.3 Family history of stroke; Z82.49 Family history of ischemic heart disease and other diseases of the circulatory system; Z87.891 Personal history of nicotine dependence
CPT/HCPCS: 36415; 70450; 71010; 80048; 80053; 80320; 81003; 81015; 82140; 82550; 83605; 83735; 83880; 84145; 84443; 84484; 85025; 87040; 87502; 87641; 93005; 94664; 94760; A9270-GY; G0378; G0480; J1650; J1940; J2543

== ENCOUNTER 2016-09-13 20:33 | Emergency (ER) | payer MEDICARE, OTHER ==
[2016-09-13 21:42] VITALS: BP 135/81
--- NOTE | 2016-09-13 23:06 | UC ---
Minor Trauma HPI - HPI Summary HPI Summary: ABOUT A WEEK AGO PT FELL AT HOME WHILE REACHING FOR SOMETHING UP ON A SHELF. FELL BACKWARDS AND LANDED ON A CHAIR. NO HEAD INJURY OR LOC. SAW HIS PCP DR. LEAL AND HAS SOME ABRASIONS BANDAGED. YESTERDAY HIS NOTICED A LARGE BRUISE ON HIS RIGHT BACK AND ON HIS RIGHT ELBOW THAT SHE HAD NOT SEEN BEFORE. PT IS ON PLAVIX. CAME IN FOR EVAL. PT FEELS WELL - NO PAIN IN THE ELBOW, NO CP, SOB, ABD PAIN/DISTENTION, DIZZINESS OR NAUSEA. - History of Current Complaint Chief Complaint: UCTrauma Stated Complaint: ARM AND BACK INJURY WITH ACCOMPANYING BRUISES Time Seen by Provider: 09/13/16 22:39 Hx Obtained From: Patient, Family/Personal Coach - Onset/Duration: Sudden Onset, Lasting Days, Still Present Severity Initially: Moderate Severity Currently: Mild Pain Intensity: 0 Pain Scale Used: 0-10 Numeric Mechanism Of Injury: Fall From A Standing Position - Allergies/Home Medications Allergies/Adverse Reactions: Allergies Allergy/AdvReac Type Severity Reaction Status Date / Time Sulfa Antibiotics Allergy Unknown Verified 09/13/16 21:33 Reaction Details Home Medications: Home Medications Gentamicin 0.1% OINTMENT* 1 applic TOPICAL QID 09/13/16 [History Confirmed 09/13] Tamsulosin CAP* [Flomax CAP*] 0.4 mg PO DAILY 09/13/16 [History Confirmed ] PMH/Surg Hx/FS Hx/Imm Hx Cardiovascular History: Cardiac Disease, Hypertension - Surgical History Surgical History: Yes Surgery Procedure, Year, and Place: Triple bypass 2010 with Porcine tissue heart valve(pig valve safe upto 3Tmagnet)-[facility]. Right knee replacement - [facility]. TURP. tonsils. appendix. bilater cataract - Family History Known Family History: Positive: Cardiac Disease, Other - Colon CA - Social History Alcohol Use: Occasionally Alcohol Amount: 3-4 [place] DAILY Substance Use Type: None Smoking Status (MU): Former Smoker Type: Cigars Amount Used/How Often: X 2 YEARS Have You Smoked in the Last Year: No When Did the Patient Quit Smoking/Using Tobacco: 60 years ago Household Exposure Type: Cigarettes - Immunization History Most Recent Influenza Vaccination: 01/05 Most Recent Tetanus Shot: UTD Most Recent Pneumonia Vaccination: UTD Review of Systems Constitutional: Negative Skin: Bruising Respiratory: Negative Cardiovascular: Negative Gastrointestinal: Negative Musculoskeletal: Negative Neurological: Negative All Other Systems Reviewed And Are Negative: Yes Physical Exam Triage Information Reviewed: Yes Appearance: Well-Appearing, No Pain Distress, Well-Nourished Vital Signs: Initial Vital Signs Temp 97.9 F 09/13/16 21:26 Pulse 57 09/13/16 21:26 Resp 16 09/13/16 21:26 BP 135/81 09/13/16 21:26 Pulse Ox 95 09/13/16 21:26 Vital Signs Reviewed: Yes Eyes: Positive: Conjunctiva Clear ENT: Positive: Hearing grossly normal Neck: Positive: Supple Respiratory: Positive: No respiratory distress, No accessory muscle use Cardiovascular: Positive: Pulses Normal Abdomen Description: Positive: Nontender, Soft. Negative: CVA Tenderness (R), CVA Tenderness (L), Distended, Guarding Bowel Sounds: Positive: Present Musculoskeletal: Positive: ROM Intact, No Edema, Other: - NOT TENDER OVER RIGHT ELBOW Neurological: Positive: Alert Psychological: Positive: Normal Response To Family, Age Appropriate Behavior Skin: Positive: Other - HEALING BRUISING RIGHT MID BACK AND RIGHT MEDIAL ELBOW. APPEARS TO HAVE MOVED DOWN WITH GRAVITY. NON TENDER Minor Trauma Course/Dx - Course Course Of Treatment: PT FEELS WELL. NO JOINT PAIN OR TENDERNESS. NO ABDOMINAL SYMPTOMS. NO CP, SOB, DIZZINESS OR OTHER INDICATION OF INTERNAL INJURY OR BLEEDING INTO A JOINT. ADVISED CAREFUL OBSERVATION AND TO GO TO ER IF ANY RED FLAG SX DEVELOP. - Differential Dx/Diagnosis Provider Diagnoses: MULTIPLE CONTUSIONS Discharge - Discharge Plan Condition: Stable Disposition: HOME Patient Education Materials: Contusion in Adults (ED) Referrals: Trevor Leal MD [Primary Care Provider] - If Needed Additional Instructions: AT PRESENT THERE IS NO INDICATION THAT THERE IS ANY SERIOUS INTERNAL INJURY. THE BRUISING SHOULD RESOLVE WITH TIME. IT MAY MOVE DOWN WITH GRAVITY. GO TO THE ER WITHOUT FAIL IF YOU DEVELOP JOINT PAIN, FEVER, SHORTNESS OF BREATH , CHEST PAIN, DIZZINESS, ABDOMINAL PAIN/DISTENTION OR ANY OTHER CONCERNING SYMPTOMS.
== END 2016-09-13 23:18 | disposition home or self-care (01) ==
LOC: UCEAST 20:33
DX: S20.221D Contusion of right back wall of thorax, subsequent encounter (principal); S50.01XD Contusion of right elbow, subsequent encounter; Z79.01 Long term (current) use of anticoagulants; I10 Essential (primary) hypertension; Z95.1 Presence of aortocoronary bypass graft; Z95.3 Presence of xenogenic heart valve; Z96.651 Presence of right artificial knee joint; Z87.891 Personal history of nicotine dependence
CPT/HCPCS: 99212; G0463

== ENCOUNTER 2017-03-06 11:42 | Emergency (ER) | payer MEDICARE, OTHER ==
[2017-03-06] MEDS ORDERED: Acetaminop/Codeine 30 MG TAB* 1 TAB (300 MG/30 MG) PO ONE (12:16)
--- NOTE | 2017-03-06 13:09 | RAD ---
Indication: Left hip pain. Left hip injury. 2 views of left hip demonstrates no fracture. Joint space narrowing in the left hip is noted. Pelvic ring is intact. Sacroiliac joints are unremarkable. IMPRESSION: Degenerative changes of both hips. No fracture is noted
--- NOTE | 2017-03-06 13:57 | RAD ---
HISTORY: Subacute trauma, left buttock pain COMPARISONS: CT of the abdomen and pelvis dated September 07, 2015 TECHNIQUE: Multiple contiguous axial CT scans were obtained of the lumbar spine without intravenous contrast, with coronal and sagittal multiplanar reformations. FINDINGS: SPINAL CANAL: Evaluation of the central canal is limited on CT technique; however, there is no obvious canalicular mass or epidural hemorrhage. ALIGNMENT: The alignment is normal. VERTEBRAL BODIES: There are nondisplaced fractures of the left transverse processes of L1 and L2. There is a stable compression deformity of L1. There is minimal osseous retropulsion. Incidentally noted is an accessory ribs of L1 on the left JOINTS: There is diffuse facet osteoarthritis. MUSCULATURE: Unremarkable INTERVERTEBRAL DISCS: There is diffuse loss of intervertebral disc height throughout the spine. AXIAL IMAGES: T12-L1: There is no osseous neural foraminal narrowing or central canal stenosis. L1-L2: There is no osseous neural foraminal narrowing or central canal stenosis. L2-L3: There is mild disc bulge. There is no osseous neural foraminal narrowing or central canal stenosis. L3-L4: There is broad-based disc bulge with ligamentous hypertrophy. There is mild bilateral neural foraminal narrowing. There is moderate narrowing of the central canal. L4-L5: There is a broad-based disc bulge at bilateral facet hypertrophy. There is mild bilateral neural foraminal area. There is moderate to severe narrowing of the central canal. L5-S1: There is bilateral facet hypertrophy. There is moderate right and severe left neural foraminal narrowing. There is no osseous central canal stenosis. SOFT TISSUES: The visualized soft tissues of the abdomen are unremarkable. OTHER: There is atherosclerosis of the abdominal aorta. IMPRESSION: 1. NONDISPLACED FRACTURES OF THE LEFT TRANSVERSE PROCESSES OF L1 AND L2. 2. STABLE COMPRESSION DEFORMITY OF L1. 3. DEGENERATIVE DISC DISEASE AND OSTEOARTHRITIS. 4. THERE IS MODERATE TO SEVERE NARROWING OF THE CENTRAL CANAL AT L4-L5 WITH MODERATE NARROWING AT L3-L4. 5. THERE IS MULTILEVEL NEURAL FORAMINAL NARROWING DESCRIBED ABOVE.
[2017-03-06 14:03] LABS: Urine Bilirubin Negative (Negative); Urine Glucose Negative (Negative); Urine Nitrite Negative (Negative)
--- NOTE | 2017-03-06 14:03 | RAD ---
Indication: Left flank pain and bruises after fall CT of the chest performed without IV contrast. Coronal and sagittal reconstructed images were obtained. Inferior thyroid lobes are unremarkable. No mediastinal or hilar adenopathy is noted. The heart demonstrates no pericardial effusion. Coronary artery calcifications are noted. The trachea and major bronchi appear patent. Lung bases demonstrate no evidence of alveolar consolidation. No pleural fluid is identified. No obvious rib fractures are noted. The visualized abdominal organs are unremarkable. The visualized spleen is unremarkable. IMPRESSION: Cardiomegaly. No pulmonary lesions are identified. No evidence of splenic injury is noted.
[2017-03-06 15:38] VITALS: BP 142/75
--- NOTE | 2017-03-06 22:38 | ED ---
Samson Blevins Tiffany, scribed for Bertha Blackwood MD on 03/06/17 at 1228 . Adult Trauma - HPI Summary HPI Summary: This patient is an 86 year old M resident of [facility] presenting to [facility] by private car, accompanied by his with a chief complaint of left back pain s/ p a fall five days ago. The patient was in the bathroom when the bathroom rug slipped out from under him, causing him to fall on the floor. He states hitting his left buttock first, then his right buttock. Patient denies hitting his head. The patient was unable to get up after the fall. His called the nurse , who was concerned for a serious injury. EMS was called but patient chose not to present to the ER. The patient presented to the ER today because the back pain has worsened and is more constant. The patient rates the pain 6/10 in severity. Symptoms aggravated by nothing. Symptoms alleviated by nothing. He has treated the pain with Tylenol with codeine starting on the day of the fall. He has been taking it every six hours. Patient denies neck pain, spinal pain, and abdominal pain. The patient is in the beginning stages of Parkinsons. The patient is on Plavix. - History of Current Complaint Chief Complaint: EDBackInjuryPain Stated Complaint: FALL FIVE DAYS AGO BACK PAIN Time Seen by Provider: 03/06/17 12:06 Hx Obtained From: Patient Mechanism of Injury: Fall - On bathroom floor Ambulatory at the Scene: No Loss of Consciousness: no loss of consciousness Onset/Duration: Started Days Ago - Five days ago, Still Present, Worse Since - Today Onset of Pain: Hours Onset Severity: Moderate Current Severity: Moderate Pain Intensity: 6 Pain Scale Used: 0-10 Numeric Location: Back - Left back pain Character: Aching Aggravating Factor(s): Nothing Alleviating Factor(s): Nothing Associated Signs & Symptoms: Positive: Other: - NEGATIVE: neck pain, spinal pain , and abdominal pain Related History: Anticoagulants - plavix - Additional Pertinent History Primary Care Physician: [id number] - Allergy/Home Medications Allergies/Adverse Reactions: Allergies Allergy/AdvReac Type Severity Reaction Status Date / Time Sulfa Antibiotics Allergy Unknown Verified 09/13/16 21:33 Reaction Details PMH/Surg Hx/FS Hx/Imm Hx Previously Healthy: No Endocrine/Hematology History: Denies: Hx Diabetes, Hx Thyroid Disease Cardiovascular History: Reports: Hx Cardiomegaly, Hx Coronary Artery Disease - 2011- TRIPLE BYPASS, Hx Hypercholesterolemia, Hx Hypertension, Hx Valvular Heart Disease - AORTIC VALVE REPLACEMENT-01/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 KAMARA- [employer] Denies: Hx Pacemaker/ICD Respiratory History: Denies: Hx Asthma, Hx Chronic Obstructive Pulmonary Disease (COPD) GI History: Denies: Hx Ulcer History: Reports: Hx Benign Prostatic Hyperplasia Denies: Hx Dialysis, Hx Renal Disease Comment Only: Other Problems/Disorders - urinary surgery unable to specify ; urinary incontinence with Tyson, TURP Musculoskeletal History: Reports: Hx Arthritis - R knee, Hx Gout, Other Musculoskeletal History - INJURY TO LOWER BACK VERTABRAE ON THE RIGHT SIDE - DID PHYSICAL THERAPY FOR Sensory History: Reports: Hx Cataracts, Hx Contacts or Glasses, Hx Glaucoma Denies: Hx Legally Blind, Hx Deafness, Hx Hearing Aid, Hx Hearing Problem Opthamlomology History: Reports: Hx Cataracts, Hx Contacts or Glasses, Hx Glaucoma Denies: Hx Legally Blind Neurological History: Reports: Hx Transient Ischemic Attacks (TIA) - 04/2013, Other Neuro Impairments/Disorders - Parkinson's Psychiatric History: Reports: Hx Depression Denies: Hx Panic Disorder - Surgical History Surgery Procedure, Year, and Place: Triple bypass 2010 with Porcine tissue heart valve(pig valve safe upto 3Tmagnet)-[facility]. Right knee replacement - [facility]. tonsils. appendix. bilater cataract Hx Anesthesia Reactions: No Infectious Disease History: No Infectious Disease History: Denies: Hx Clostridium Difficile, Hx Hepatitis, Hx Human Immunodeficiency Virus (HIV), Hx of Known/Suspected MRSA, Hx Shingles, Hx Tuberculosis, Hx Known/ Suspected VRE, Hx Known/Suspected VRSA, History Other Infectious Disease, Traveled Outside the [place] in Last 30 Days - Family History Known Family History: Positive: Cardiac Disease, Other - Colon CA - Social History Lives: Assisted Living - [facility] Alcohol Use: Occasionally Alcohol Amount: 3-4 [place] DAILY Hx Substance Use: No Substance Use Type: Reports: None Hx Tobacco Use: Yes - [employer] Smoking Status (MU): Former Smoker Type: Cigars Amount Used/How Often: X 2 YEARS Have You Smoked in the Last Year: No Review of Systems Constitutional: Negative Cardiovascular: Negative Respiratory: Negative Negative: Abdominal Pain Positive: Other - Left back pain; NEGATIVE; neck pain, spinal pain Positive: Bruising Neurological: Negative Psychological: Normal All Other Systems Reviewed And Are Negative: Yes Physical Exam Triage Information Reviewed: Yes Vital Signs On Initial Exam: Initial Vitals Temp Pulse Resp BP Pulse Ox 98.0 F 72 19 110/63 95 03/06/17 11:44 03/06/17 11:44 03/06/17 11:44 03/06/17 11:44 03/06/17 11:44 Vital Signs Reviewed: Yes Appearance: Positive: Well-Appearing, Well-Nourished, Pain Distress Skin: Positive: Warm, Skin Color Reflects Adequate Perfusion, Other - Purple ecchymosis on right buttock that is the size of a fist, ecchymosis on his left flank that is 7 cm x 3 cm, no ecchymosis on his left buttock where his pain is located Head/Face: Positive: Normal Head/Face Inspection Eyes: Positive: EOMI, Conjunctiva Clear ENT: Positive: Normal ENT inspection Neck: Positive: Supple Respiratory/Lung Sounds: Positive: Clear to Auscultation, Breath Sounds Present - Normal, Other - No respiratory distress Cardiovascular: Positive: Normal - Brisk capillary refill, RRR, Pulses are Symmetrical in both Upper and Lower Extremities. Negative: Murmur Abdomen Description: Positive: Nontender, Soft Musculoskeletal: Positive: Strength/ROM Intact Neurological: Positive: Sensory/Motor Intact, Alert, Oriented to Person Place, Time, Facial Symmetry, Speech Normal Psychiatric: Positive: Normal - Anna Coma Scale Best Eye Response: 4 - Spontaneous Best Motor Response: 6 - Obeys Commands Best Verbal Response: 5 - Oriented Glascow Coma Scale Comments: 15 Diagnostics - Vital Signs Vital Signs Temp Pulse Resp BP Pulse Ox 03/06/17 11:44 98.0 F 72 19 110/63 95 - Laboratory Lab Results: Lab Results 03/06/17 Range/Units 13:45 Urine Color Yellow Urine Appearance Clear Urine pH 5.0 (5-9) Ur Specific [place] 1.023 (1.010-1.030) Urine Protein Negative (Negative) Urine Ketones Negative (Negative) Urine Blood Negative (Negative) Urine Nitrate Negative (Negative) Urine Bilirubin Negative (Negative) Urine Urobilinogen Negative (Negative) Ur Leukocyte Esterase Negative (Negative) Urine Glucose Negative (Negative) Lab Statement: Any lab studies that have been ordered have been reviewed, and results considered in the medical decision making process. - Radiology Hip Radiology Interpretation Completed By: Radiologist - Degenerative changes of both hips. No fracture is noted. ED physician has reviewed this radiology report. - CT Chest CT Interpretation Completed By: Radiologist - Cardiomegaly. No pulmonary lesions are identified. No evidence of splenicinjury is noted. ED physician has reviewed this radiology report. L-Spine CT Interpretation Completed By: Radiologist - 1. NONDISPLACED FRACTURES OF THE LEFT TRANSVERSE PROCESSES OF L1 AND L2. 2. STABLE COMPRESSION DEFORMITY OF L1. 3. DEGENERATIVE DISC DISEASE AND OSTEOARTHRITIS. 4. THERE IS MODERATE TO SEVERE NARROWING OF THE CENTRAL CANAL AT L4-L5 WITH MODERATE NARROWING AT L3- L4. 5. THERE IS MULTILEVEL NEURAL FORAMINAL NARROWING DESCRIBED ABOVE. ED physician has reviewed this radiology report. Re-Evaluation - Re-Evaluation First Eval Re-Evaluation Time: 15:20 Change: Unchanged Comment: Patient was informed of discharge plan. Adult Trauma Course/Dx - Course Course Of Treatment: Hip XR reveals, per radiologist, degenerative changes of both hips. No fracture is noted. CT L-Spine reveals, per radiologist, 1. NONDISPLACED FRACTURES OF THE LEFT TRANSVERSE PROCESSES OF L1 AND L2. 2. STABLE COMPRESSION DEFORMITY OF L1. 3. DEGENERATIVE DISC DISEASE AND OSTEOARTHRITIS. 4. THERE IS MODERATE TO SEVERE NARROWING OF THE CENTRAL CANAL AT L4-L5 WITH MODERATE NARROWING AT L3-L4. 5. THERE IS MULTILEVEL NEURAL FORAMINAL NARROWING DESCRIBED ABOVE. CT Chest reveals, per radiologist, Cardiomegaly. No pulmonary lesions are identified. No evidence of splenicinjury is noted. In the ED course the patient was given Tylenol/Codeine 30 mg tab. Patient will be discharged with and follow up from Dr. Ku. The patient is agreeable with this plan. Assessment/Plan: Allergies noted. Pt medications reviewed this visit. - Diagnoses Provider Diagnoses: Vertebral compression fracture, Thoracolumbar fracture Discharge - Discharge Plan Condition: Stable Disposition: HOME Patient Education Materials: Vertebral Compression Fracture (ED), Thoracolumbar Fracture (ED) Referrals: Trevor Ku MD [Primary Care Provider] - 1 Day Additional Instructions: Continue your tylenol with codeine as directed. Your last dose was at 12:16pm. Continue your current medications. Follow up with Dr. Ku. We have given you copies of your Xray and CT's which show a nondisplaced fractures of the left transverse processes of L1 AND L 2. Return to the ER if you have new or worsening symptoms. The documentation as recorded by the Samson villavicencio Tiffany accurately reflects the service I personally performed and the decisions made by me, Bertha Blackwood MD.
== END 2017-03-06 15:36 | disposition home or self-care (01) ==
LOC: ED 11:42
DX: S32.019A Unspecified fracture of first lumbar vertebra, initial encounter for closed fracture (principal); S32.029A Unspecified fracture of second lumbar vertebra, initial encounter for closed fracture; S22.9XXA Fracture of bony thorax, part unspecified, initial encounter for closed fracture; W19.XXXA Unspecified fall, initial encounter; Y93.9 Activity, unspecified; Y92.9 Unspecified place or not applicable; Y99.9 Unspecified external cause status
CPT/HCPCS: 71250; 72131; 81003; 99282; A9270-GY

== ENCOUNTER 2017-05-11 20:37 | Emergency (ER) | payer MEDICARE, OTHER ==
--- NOTE | 2017-05-11 21:23 | RAD ---
INDICATION: Intracranial injury COMPARISON: CT brain May 31, 2016 TECHNIQUE: Noncontrast axial source images were acquired from the skull base to the vertex. FINDINGS: Ventricles/sulci: There is cortical atrophy with compensatory dilatation of the CSF spaces. The ventricles appear slightly out of proportion to the CSF spaces but this represents chronic finding. Brain parenchyma: There is periventricular and subcortical white matter change compatible with chronic ischemia. Intracranial hemorrhage:None. Extra-axial spaces: There are no abnormal extra axial fluid collections or evidence of extra-axial mass. Calvarium: There is no calvarial fracture or other calvarial abnormality. Scalp: There is no evidence of scalp or extracalvarial soft tissue abnormality. Paranasal sinuses/mastoid: The paranasal sinuses and mastoid air cells are clear. Other: None. IMPRESSION: NO ACUTE INTRACRANIAL FINDINGS. MILD PROMINENCE OF THE LATERAL VENTRICLES, UNCHANGED. CHRONIC MICROVASCULAR ISCHEMIC CHANGES
--- NOTE | 2017-05-11 21:32 | RAD ---
INDICATION: Fall. Neck pain COMPARISON: None TECHNIQUE: Noncontrast axial source images was performed from the skull base to the thoracic inlet. Coronal and and sagittal reformatted images were generated. FINDINGS: Vertebrae: There is no fracture or acute focal bony lesion. There are arthritic changes with multilevel degenerative spurring. There is multilevel facet arthropathy. Alignment: The craniocervical junction appears normal. The cervical vertebrae are normally aligned. Central Canal: There is no significant central canal stenosis based on the CT. There is mild multilevel foraminal narrowing related to the uncinate process spurring. MR imaging is a more sensitive method to evaluate the canal and foramina. Intervertebral disc spaces: The disc spaces are maintained. Brain: The visualized brain appears unremarkable. Soft tissues: The visualized soft tissue elements of the neck are unremarkable. The prevertebral soft tissues appear normal. The lung apices are clear. IMPRESSION: NO ACUTE CERVICAL SPINE FINDINGS. OSTEOARTHRITIS.
--- NOTE | 2017-05-11 21:58 | RAD ---
INDICATION: Fall. Pain left thigh COMPARISON: None TECHNIQUE: AP and lateral views were obtained. FINDINGS: There is no acute femoral fracture. There are arterial consultations. There is prior venous stripping. There is osteophyte change about the hip and knee. IMPRESSION: NO ACUTE BONY FINDINGS.
--- NOTE | 2017-05-11 22:00 | RAD ---
INDICATION: Left hip pain COMPARISON: March 06, 2017 TECHNIQUE: An AP view of the pelvis and AP views of the hip in neutral and abducted position were obtained FINDINGS: Bones: There are no acute bony findings. Joint spaces: There is moderate symmetric narrowing and hypertrophic change about both hips. SI joints/symphysis: The SI joints and symphysis are intact. Other: There are arterial consultations. There is prior venous stripping. IMPRESSION: NO ACUTE BONY FINDINGS. UNDERLYING OSTEOARTHRITIS
[2017-05-11] MEDS ORDERED: Iodixanol* (CONTRAST) 320 MG/ML 100 ML SDV IV ONE (22:14)
[2017-05-11 22:48] LABS: ABS Basophils 0.1 10^3/ul (0-0.2); ABS Eosinophils 0.1 10^3/ul (0-0.6); ABS Lymphocytes 1.1 10^3/ul (1.0-4.8); ABS Monocytes 0.8 10^3/ul (0-0.8); ABS Neutrophils 5.9 10^3/ul (1.5-7.7); ABS Nucleated RBC 0 10^3/ul; Eosinophil % 1.5 % (0-6); Hematocrit 40 % (42-52); Hemoglobin 13.5 g/dl (14.0-18.0); Lymphocyte % 13.8 % (25-47); Mean Corpuscular HGB Conc 34 g/dl (31-36); Mean Corpuscular Hemoglobin 30 pg (27-31); Mean Corpuscular Volume 90 fL (80-94); Mean Platelet Volume 8 um3 (7.4-10.4); Nucleated Red Blood Cells % 0; Platelet Count 172 10^3/ul (150-450); Red Blood Count 4.45 10^6/ul (4.0-5.4); Red Cell Distribution Width 13 % (10.5-15); White Blood Count 7.9 10^3/ul (3.5-10.8)
[2017-05-11 23:01] LABS: INR 0.98 (0.77-1.02)
[2017-05-11 23:08] LABS: EGFR Non-African American 68.2 (>60)
--- NOTE | 2017-05-11 23:23 | ED ---
Adult Trauma - HPI Summary HPI Summary: Patient here with fall straight onto back prior to arrival by ambulance ediight. Reports he was attempting to close the trunk of his car when he reached up and behind him overhead, lost balance and fell straight backward on the pavement. He has neck pain and stiffness radiating into his shoulders this point in time. Denies headache, loss of consciousness, nausea, vomiting, change in vision, numbness, tingling, weakness. He did not get up after this fall - he was assisted to stretcher by EMS staff and brought directly here. 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 Upon a full body scan, he reports he's got some left leg pain in the thigh region worse with touch and movement. Again he has not bared weight since fall so unable to assess how his leg feels in that position. His arrived after initial workup and reports patient he has fallen 4 times in the past couple of months, all inside. She admits he's had a bruise on the Lt flank since once of the falls. 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 He admits he has not been working out and feels he is developed generalized weakness. He is motivated to restart PT and is reported she will call first thing tomorrow. - History of Current Complaint Chief Complaint: EDHeadInjury Stated Complaint: FALL Time Seen by Provider: 05/11/17 20:59 Hx Obtained From: Patient, Family/Gate Operator - Pain Intensity: 0 - Additional Pertinent History Primary Care Physician: [id number] - Allergy/Home Medications Allergies/Adverse Reactions: Allergies Allergy/AdvReac Type Severity Reaction Status Date / Time Sulfa (Sulfonamide Allergy Unknown Verified 05/11/17 21:35 Antibiotics) Reaction Details PMH/Surg Hx/FS Hx/Imm Hx Previously Healthy: Yes Endocrine/Hematology History: Reports: Hx Anticoagulant Therapy - plavix, Other Endocrine/Hematological Disorders - hyperlipidemia Denies: Hx Diabetes, Hx Thyroid Disease Cardiovascular History: Reports: Hx Cardiomegaly, 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 Denies: Hx Pacemaker/ICD Respiratory History: Denies: Hx Asthma, Hx Chronic Obstructive Pulmonary Disease (COPD) GI History: Denies: Hx Ulcer History: Reports: Hx Benign Prostatic Hyperplasia Denies: Hx Dialysis, Hx Renal Disease Comment Only: Other Problems/Disorders - urinary surgery unable to specify ; urinary incontinence with Tyson, TURP Musculoskeletal History: Reports: Hx Arthritis - R knee, Hx Gout, Other Musculoskeletal History - INJURY TO LOWER BACK VERTABRAE ON THE RIGHT SIDE - DID PHYSICAL THERAPY FOR Sensory History: Reports: Hx Cataracts, Hx Contacts or Glasses, Hx Glaucoma Denies: Hx Legally Blind, Hx Deafness, Hx Hearing Aid, Hx Hearing Problem Opthamlomology History: Reports: Hx Cataracts, Hx Contacts or Glasses, Hx Glaucoma Denies: Hx Legally Blind Neurological History: Reports: Hx Transient Ischemic Attacks (TIA) - 04/2013, Other Neuro Impairments/Disorders - Parkinsonian symptoms Psychiatric History: Reports: Hx Depression Denies: Hx Panic Disorder - Surgical History Surgery Procedure, Year, and Place: Triple bypass 2010 with Porcine tissue heart valve(pig valve safe upto 3Tmagnet)-[facility]. Right knee replacement - [facility]. TURP. tonsils. appendix. bilater cataract Hx Anesthesia Reactions: No - Immunization History Date of Tetanus Vaccine: PT STATES UNSURE Date of Influenza Vaccine: 2012 Infectious Disease History: No Infectious Disease History: Denies: Hx Clostridium Difficile, Hx Hepatitis, Hx Human Immunodeficiency Virus (HIV), Hx of Known/Suspected MRSA, Hx Shingles, Hx Tuberculosis, Hx Known/ Suspected VRE, Hx Known/Suspected VRSA, History Other Infectious Disease, Traveled Outside the [place] in Last 30 Days - Family History Known Family History: Positive: Cardiac Disease, Other - Colon [place] - Social History Occupation: Retired Lives: With Family - at [employer] Alcohol Use: Daily Alcohol Amount: 3-4 OUNCES DAILY Hx Substance Use: No Substance Use Type: Reports: None Hx Tobacco Use: Yes - ANITAELLO'S Smoking Status (MU): Former Smoker Type: Cigars Amount Used/How Often: X 2 YEARS Have You Smoked in the Last Year: No Review of Systems Constitutional: Negative Eyes: Negative ENT: Negative Cardiovascular: Negative Respiratory: Negative Gastrointestinal: Negative Positive: no symptoms reported - reports he needs to change in his Tyson bag Positive: Arthralgia, Myalgia Positive: Bruising Neurological: Negative Psychological: Normal All Other Systems Reviewed And Are Negative: Yes Physical Exam Triage Information Reviewed: Yes Vital Signs On Initial Exam: Initial Vitals Temp Pulse Resp BP Pulse Ox 98.6 F 64 16 149/83 98 05/11/17 20:39 05/11/17 20:39 05/11/17 20:39 05/11/17 20:39 05/11/17 20:39 Vital Signs Reviewed: Yes Appearance: Positive: Well-Appearing, Well-Nourished, Pain Distress - mild pain - appears comfortable at rest however moving his UE's triggers back/neck pain Skin: Positive: Warm - purpuric ecchymosis over Lt flank area (this was initially observed w/o present and pt was not aware he had a lesion from previous fall here - observed and reports it was more blue a few days ago - appears to be more purple today and may be larger than previously observed) - no skin breakdown, Skin Color Reflects Adequate Perfusion, Dry Head/Face: Positive: Normal Head/Face Inspection - NTTP, no traumatic lesions or ecchymosis Eyes: Positive: Normal, EOMI, NELL - no photophobia, Conjunctiva Clear ENT: Positive: Normal ENT inspection, Hearing grossly normal, Pharynx normal, TMs normal Neck: Positive: Supple, Tenderness @ - mild TTP over trapezius mm B/L and paracervical mm Respiratory/Lung Sounds: Positive: Clear to Auscultation, Breath Sounds Present - No flail chest observed. 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 strength are adequate for his age and equal bilaterally ; moving bilateral lower extremities fairly well; hips and pelvis are without tenderness to palpation, Pain @ - Lt femur TTP; bilateral trapezius muscles are tender to palpation and pain with overhead reaching Neurological: Positive: Normal, Sensory/Motor Intact, Alert, Oriented to Person Place, Time, CN Intact II-III Psychiatric: Positive: Normal - Pleasant, calm, cooperative Diagnostics - Vital Signs Vital Signs Temp Pulse Resp BP Pulse Ox 05/11/17 22:50 64 97 05/11/17 22:48 164/92 05/11/17 20:39 98.6 F 64 16 149/83 98 - Laboratory Lab Results: Lab Results 05/11/17 05/11/17 05/11/17 Range/Units 22:33 22:33 22:33 WBC 7.9 (3.5-10.8) 10^3/ul RBC 4.45 (4.0-5.4) 10^6/ul Hgb 13.5 L (14.0-18.0) g/dl Hct 40 L (42-52) % MCV 90 (80-94) fL MCH 30 (27-31) pg MCHC 34 (31-36) g/dl RDW 13 (10.5-15) % Plt Count 172 (150-450) 10^3/ul MPV 8 (7.4-10.4) um3 Neut % (Auto) 74.0 (38-83) % Lymph % (Auto) 13.8 L (25-47) % Charlton % (Auto) 10.0 H (1-9) % Eos % (Auto) 1.5 (0-6) % Baso % (Auto) 0.7 (0-2) % Absolute Neuts (auto) 5.9 (1.5-7.7) 10^3/ul Absolute Lymphs (auto) 1.1 (1.0-4.8) 10^3/ul Absolute Monos (auto) 0.8 (0-0.8) 10^3/ul Absolute Eos (auto) 0.1 (0-0.6) 10^3/ul Absolute Basos (auto) 0.1 (0-0.2) 10^3/ul Absolute Nucleated RBC 0 10^3/ul Nucleated RBC % 0 INR (Anticoag Therapy) 0.98 (0.77-1.02) APTT 28.2 (26.0-36.3) seconds Sodium 138 (133-145) mmol/L Potassium 3.8 (3.5-5.0) mmol/L Chloride 105 (101-111) mmol/L Carbon Dioxide 27 (22-32) mmol/L Anion Gap 6 (2-11) mmol/L BUN 24 (6-24) mg/dL Creatinine 1.03 (0.67-1.17) mg/dL Est GFR ( Amer) 87.7 (>60) Est GFR (Non-Af Amer) 68.2 (>60) BUN/Creatinine Ratio 23.3 H (8-20) Glucose 120 H (70-100) mg/dL Lactic Acid (0.5-2.0) mmol/L Calcium 9.2 (8.6-10.3) mg/dL Total Bilirubin 0.70 (0.2-1.0) mg/dL AST 19 (13-39) U/L ALT 12 (7-52) U/L Alkaline Phosphatase 84 (34-104) U/L Total Creatine Kinase 122 (10-223) U/L Total Protein 6.4 (6.4-8.9) g/dL Albumin 3.7 (3.2-5.2) g/dL Globulin 2.7 (2-4) g/dL Albumin/Globulin Ratio 1.4 (1-3) Blood Type Antibody Screen 05/11/17 05/11/17 Range/Units 22:33 22:33 WBC (3.5-10.8) 10^3/ul RBC (4.0-5.4) 10^6/ul Hgb (14.0-18.0) g/dl Hct (42-52) % MCV (80-94) fL MCH (27-31) pg MCHC (31-36) g/dl RDW (10.5-15) % Plt Count (150-450) 10^3/ul MPV (7.4-10.4) um3 Neut % (Auto) (38-83) % Lymph % (Auto) (25-47) % Charlton % (Auto) (1-9) % Eos % (Auto) (0-6) % Baso % (Auto) (0-2) % Absolute Neuts (auto) (1.5-7.7) 10^3/ul Absolute Lymphs (auto) (1.0-4.8) 10^3/ul Absolute Monos (auto) (0-0.8) 10^3/ul Absolute Eos (auto) (0-0.6) 10^3/ul Absolute Basos (auto) (0-0.2) 10^3/ul Absolute Nucleated RBC 10^3/ul Nucleated RBC % INR (Anticoag Therapy) (0.77-1.02) APTT (26.0-36.3) seconds Sodium (133-145) mmol/L Potassium (3.5-5.0) mmol/L Chloride (101-111) mmol/L Carbon Dioxide (22-32) mmol/L Anion Gap (2-11) mmol/L BUN (6-24) mg/dL Creatinine (0.67-1.17) mg/dL Est GFR ( Amer) (>60) Est GFR (Non-Af Amer) (>60) BUN/Creatinine Ratio (8-20) Glucose (70-100) mg/dL Lactic Acid 1.6 (0.5-2.0) mmol/L Calcium (8.6-10.3) mg/dL Total Bilirubin (0.2-1.0) mg/dL AST (13-39) U/L ALT (7-52) U/L Alkaline Phosphatase (34-104) U/L Total Creatine Kinase (10-223) U/L Total Protein (6.4-8.9) g/dL Albumin (3.2-5.2) g/dL Globulin (2-4) g/dL Albumin/Globulin Ratio (1-3) Blood Type B Positive Antibody Screen Negative Result Diagrams: 05/11/17 22:33 05/11/17 22:33 Lab Statement: Any lab studies that have been ordered have been reviewed, and results considered in the medical decision making process. Adult Trauma Course/Dx - Course Course Of Treatment: Patient presents with fall directly onto his back striking his head earlier tonight. He reports he has not tried to ambulate since the injuryshe was brought here by ambulance directly after. He denies loss of consciousness, headache and other neuro deficits. He does have neck pain and stiffness which radiates into his bilateral shoulder regions. He does not initially report but later admits he's got some left-sided pain. After an examination he appears to have ecchymosis over his left rib/flank area. He's taking Plavix. He also has tenderness of his left femur. CTs and x-rays were ordered along with labs. Everything is negative except for a minimally displaced left ninth rib fracture without pneumothorax. Patient remained stable throughout course of stay. He was provided with an ice pack, acetaminophen and Lidoderm pain patch for his rib fracture. Education about taking deep breaths, coughing, etc. to prevent pneumonia and atelectasis. Also discussed the importance of monitoring for neuro deficits after a head injury, especially while taking Plavix. Furthermore discussed his generalized weakness and increased falls as of late. Patient agrees he would like to get back in to physical therapy to regain his strength and prevent falls. is present and agrees with plan as well. They will plan to follow up with PCP this week and return to the emergency department if danger signs or symptoms present. 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 These additional findings were not discussed tonight as pt and admit they were losing concentration. They agree to f/u w/ PCP this week and so will call tomorrow to update on these findings as well and remind them to f/u w/ PCP who may also review these results , specifically lung findings. - Diagnoses Provider Diagnoses: Left rib fracture, Fall from standing, Contusion, flank, Cervical strain, acute , Head injury Discharge - Discharge Plan Condition: Stable Disposition: HOME Prescriptions: Lidocaine PATCH 5%* [Lidoderm 5% Patch*] 1 patch TRANSDERM DAILY PRN #30 patch PRN Reason: Pain Patient Education Materials: How to Use an Incentive Spirometer (ED), Rib Fracture (ED), Fall Prevention for Older Adults (ED), Head Injury (ED), Contusion in Adults (ED) Referrals: Trevor Ku MD [Primary Care Provider] - Additional Instructions: You have sustained a fall tonight. This has resulted in a bruise on your Left flank and a rib fracture here. It is important that you control your pain here so that you may continue to take deep breathes, cough, etc so you do not develop pneumonia. You may attain pain control by taking acetaminophen 650mg every 6 hours and using a topical pain patch. Tonight, you have had a lidoderm pain patch placed. If this helps, you may warp picker more at the pharmacy as a prescription has been called in tonight. If these are not covered by your insurance, you may choose to purchase only a few or try salonpas patches which are over the counter pain patches. I have refrained from prescribing you any stronger oral medications that may make you drowsy or loose your balance as you have shared you are not feeling as strong as usual and have increased falls as of late. It is important that you follow-up with your PCP this week to recheck you head injury (no bleeding or fracture on scan and no signs of concussion tonight), rib fracture progression and strength plan. You have expressed a desire to restart your training program with PT - call tomorrow or have PCP help arrange this to improve you overall strength. Continue to monitor for signs of a concussion as well - this may present as a headache, focal numbness or weakness, slurred speech, dizziness, change in vision or vomiting. If these occur, return to ED. For your neck strain, you may apply ice today and alternate with heat tomorrow. Your PT may evaluate this injury as well and provide exercises/stretches/etc to aid in recovering. If you develop numbness, tingling, weakness in your extremities, return to ED.
[2017-05-12] MEDS ORDERED: Acetaminophen TAB* 325 MG PO ONE (00:21)
[2017-05-12] MEDS ORDERED: Lidocaine PATCH 5%* 1 PATCH TRANSDERM ONE (00:22)
[2017-05-12 01:22] VITALS: BP 148/87
--- NOTE | 2017-05-12 07:44 | RAD ---
INDICATION: Fall with posterior bruising and back pain. COMPARISON: Comparison is made with a prior CT of the abdomen and pelvis from May 11, 2017. TECHNIQUE: A CT scan of the chest, abdomen and pelvis was performed with intravenous and without oral contrast following intravenous injection of 88 ml of Visipaque 320 nonionic contrast. Contiguous axial sections were obtained from the lung apices through the symphysis pubis. Images were reconstructed in the coronal and sagittal planes. FINDINGS: There are small 4 mm calcified nodules most consistent with granulomas in the right upper and left lower lobes. There is mild dependent bilateral lower lobe subsegmental atelectasis. No pleural effusion or pneumothorax is seen. No significant enlarged mediastinal or hilar lymph nodes are seen. The heart is within normal limits in size. No pericardial effusion is present. There are coronary artery calcifications. There is a prosthetic aortic valve. There is mild ectasia of the ascending thoracic aorta measuring 4.1 cm in diameter. There is homogeneous opacification of the aorta. The liver and spleen are normal in size without significant focal abnormality. No calcified gallstones are seen. The pancreas appears to be within normal limits in size. The kidneys and adrenal glands are normal in size. There is no evidence for hydronephrosis. There are small bilateral renal cysts. There is a Tyson catheter within the urinary bladder. The abdominal aorta is normal in caliber. There is moderate calcific plaque present. No significant enlarged retroperitoneal lymph nodes are seen. The stomach, small and large bowel appear nondistended. There is moderate to severe descending and sigmoid diverticulosis without evidence for diverticulitis or colitis. No free intraperitoneal air or fluid is seen. There is a nondisplaced fracture of the left lateral ninth rib. There is a chronic burst fracture of the L1 vertebral body which is unchanged. IMPRESSION: 1. ACUTE NONDISPLACED FRACTURE OF THE LEFT LATERAL NINTH RIB. NO PNEUMOTHORAX IS PRESENT. 2. CHRONIC BURST FRACTURE OF THE L1 VERTEBRAL BODY, UNCHANGED.
--- NOTE | 2017-05-12 07:46 | RAD ---
Indication: Back pain after fall patient on anticoagulants. CT of the lumbar spine was obtained in the axial plane. Sagittal and coronal reconstructed images were obtained. Comparison is made with previous exam dated March 06, 2017. There is compression fracture of the L1 vertebra with compression of approximately 50% of the superior endplate with mild retropulsion. This was present on previous exam of March 06, 2017 and has not significantly changed. There is also disc space narrowing at L3-L4 and L5-S1. No retroperitoneal adenopathy is noted. Atherosclerotic aorta is noted. No fracture is noted. IMPRESSION: Compression fracture of 25-50% superior endplate of L1. This is unchanged from March 06, 2017. No retroperitoneal adenopathy is noted.
--- NOTE | 2017-05-12 07:49 | RAD ---
INDICATION: Trauma. COMPARISON: Comparison is made with a prior CT of the abdomen and pelvis from September 07, 2015. TECHNIQUE: Contiguous axial sections were obtained beginning above the T1 vertebra and scanning through the L1 vertebra. Images were reconstructed in the sagittal and coronal planes. FINDINGS: There is a mild dorsal scoliosis convex toward the left side. No acute fracture is seen. There is a chronic burst fracture of the L1 vertebral body with mild retropulsion of fracture fragments which is unchanged. There is mild diffuse degenerative disc disease. There is no gross evidence for spinal canal narrowing. IMPRESSION: 1. NO EVIDENCE FOR ACUTE FRACTURE. 2. CHRONIC BURST FRACTURE OF THE L1 VERTEBRAL BODY, UNCHANGED.
== END 2017-05-12 01:17 | disposition home or self-care (01) ==
LOC: ED 20:37
DX: S22.32XA Fracture of one rib, left side, initial encounter for closed fracture (principal); S16.1XXA Strain of muscle, fascia and tendon at neck level, initial encounter; S09.90XA Unspecified injury of head, initial encounter; S30.1XXA Contusion of abdominal wall, initial encounter; W19.XXXA Unspecified fall, initial encounter; Y92.9 Unspecified place or not applicable
CPT/HCPCS: 36415; 70450; 71260; 72125; 72128; 72131; 74177; 80053; 82550; 83605; 85025; 85610; 85730; 86850; 86900; 86901; 99283; A9270-GY; Q9967

== ENCOUNTER 2017-06-18 19:27 | Emergency (ER) | payer MEDICARE, OTHER ==
[2017-06-18 19:57] VITALS: BP 130/83
--- NOTE | 2017-06-18 20:27 | UC ---
Skin Complaint HPI - HPI Summary HPI Summary: skin on Penis is sore - History of Current Complaint Chief Complaint: UCGU Time Seen by Provider: 06/18/17 20:05 Stated Complaint: SORE PENIS WITH CATHETER Hx Obtained From: Patient, Family/Switchboard Operator Onset/Duration: Gradual Onset, Lasting Days Timing: Constant Onset Severity: Mild Current Severity: Mild Pain Intensity: 4 Location: Discrete Character: Pain, Redness Aggravating Factor(s): Nothing Alleviating Factor(s): Nothing Associated Signs & Symptoms: Positive: Tenderness - Allergy/Home Medications Allergies/Adverse Reactions: Allergies Allergy/AdvReac Type Severity Reaction Status Date / Time Sulfa (Sulfonamide Allergy Unknown Verified 06/18/17 19:57 Antibiotics) Reaction Details Home Medications: Home Medications Valsartan TAB* [Diovan TAB*] 40 mg PO DAILY 06/18/17 [History Confirmed 06/18/17 ] Review of Systems Constitutional: Negative Skin: Other - erythema irratation Eyes: Negative ENT: Negative Respiratory: Negative Cardiovascular: Negative Gastrointestinal: Negative Genitourinary: Negative Motor: Negative Neurovascular: Negative Musculoskeletal: Negative Neurological: Negative Psychological: Negative Is Patient Immunocompromised?: No All Other Systems Reviewed And Are Negative: Yes PMH/Surg Hx/FS Hx/Imm Hx Previously Healthy: No Endocrine History: Dyslipidemia Cardiovascular History: Hypertension Other History Of: Anticoagulant Therapy - plavix - Surgical History Surgical History: Yes Surgery Procedure, Year, and Place: Triple bypass 2010 with Porcine tissue heart valve(pig valve safe upto 3Tmagnet)-[facility]. Right knee replacement - [facility]. TURP. tonsils. appendix. bilater cataract - Family History Known Family History: Positive: Cardiac Disease, Other - Colon [place] - Social History Occupation: Retired Lives: With Family Alcohol Use: Occasionally Alcohol Amount: 3-4 OUNCES DAILY Substance Use Type: None Smoking Status (MU): Former Smoker Type: Cigars Amount Used/How Often: X 2 YEARS Have You Smoked in the Last Year: No When Did the Patient Quit Smoking/Using Tobacco: 60 years ago Household Exposure Type: Cigarettes - Immunization History Most Recent Influenza Vaccination: 01/05 Most Recent Tetanus Shot: UTD Most Recent Pneumonia Vaccination: UTD Physical Exam Triage Information Reviewed: Yes Appearance: Well-Appearing, No Pain Distress, Well-Nourished Vital Signs: Initial Vital Signs Temp 97.2 F 06/18/17 19:54 Pulse 68 06/18/17 19:54 Resp 16 06/18/17 19:54 BP 130/83 06/18/17 19:54 Pulse Ox 98 06/18/17 19:54 Vital Signs Reviewed: Yes Eye Exam: Normal Eyes: Positive: Conjunctiva Clear ENT Exam: Normal ENT: Positive: Normal ENT inspection, Hearing grossly normal Dental Exam: Normal Neck exam: Normal Neck: Positive: Supple, Nontender Respiratory Exam: Normal Respiratory: Positive: No respiratory distress, No accessory muscle use Cardiovascular Exam: Normal Cardiovascular: Positive: RRR, Pulses Normal, Brisk Capillary Refill Abdominal Exam: Normal Abdomen Description: Positive: Nontender, No Organomegaly, Soft. Negative: CVA Tenderness (R), CVA Tenderness (L) Male Genital Exam: Positive: Erythema - fontanez and sulcus with thick white caked on secretion--gentley washed skin underneth red sore no bleeding, Other - catheter intact and draining well and evidence of trauma at the urthera Musculoskeletal Exam: Normal Musculoskeletal: Positive: Strength Intact, ROM Intact, No Edema Neurological Exam: Normal Neurological: Positive: Alert, Muscle Tone Normal Psychological Exam: Normal Skin: Positive: Other - on fontanez and sulcus of penis as described Course/Dx - Course Course Of Treatment: antifungal cream gentle soap and water wash with complete drying follow with pcp - Diagnoses Provider Diagnoses: 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
== END 2017-06-18 20:35 | disposition home or self-care (01) ==
LOC: UCEAST 19:27
DX: B37.49 Other urogenital candidiasis (principal); E78.5 Hyperlipidemia, unspecified; I10 Essential (primary) hypertension; Z95.1 Presence of aortocoronary bypass graft; Z79.01 Long term (current) use of anticoagulants; Z88.2 Allergy status to sulfonamides; Z96.651 Presence of right artificial knee joint; Z87.891 Personal history of nicotine dependence
CPT/HCPCS: 99212; G0463

== ENCOUNTER 2017-10-04 08:49 | Emergency (ER) | payer MEDICARE, OTHER ==
--- NOTE | 2017-10-04 09:10 | ED ---
GI/ HPI - HPI Summary HPI Summary: This patient is an 87 year old M MACIEA with a chief complaint of accidental Tyson catheter removal accompanied by bleeding since this morning. When the pt went to get out of bed at [facility], he felt the tape come undone and noticed blood. Pt has a catheter because of chronic incontinence. Patient reports bleeding. Patient denies fever, nausea, or difficulty breathing. Pt takes a blood thinner, Plavix. No PMHx of [place]. - History of Current Complaint Chief Complaint: EDGeneral Time Seen by Provider: 10/04/17 08:59 Stated Complaint: HEMORHAGE Hx Obtained From: Patient Onset/Duration: Started Hours Ago Timing: Constant Severity: Moderate Current Severity: Mild Pain Intensity: 0 Location of Pain: Groin Associated Signs and Symptoms: Negative: Nausea, Bubble Bath - Additional Pertinent History Primary Care Physician: [id number] - Allergy/Home Medications Allergies/Adverse Reactions: Allergies Allergy/AdvReac Type Severity Reaction Status Date / Time Sulfa (Sulfonamide Allergy Unknown Verified 06/18/17 19:57 Antibiotics) Reaction Details Home Medications: Home Medications Acetaminophen TAB* [Tylenol TAB*] 625 mg PO Q6H PRN 10/04/17 [History Confirmed 10/04/17] Brimonid/Timolol 0.2/0.5%(NF) 1 drop BOTH EYES BID 10/04/17 [History Confirmed 10/04/17] Carbidopa/Levodop 25/100 MG(*) [Sinemet 25/100 TAB(*)] 1 tab PO TID 10/04/17 [ History Confirmed 10/04/17] Clopidogrel TAB* [Plavix TAB*] 75 mg PO DAILY 10/04/17 [History Confirmed ] Oxybutynin Chloride [Ditropan Xl] 1 tab PO DAILY 10/04/17 [History Confirmed ] Potassium Chloride 20 meq PO SEE INSTRUCTIONS 10/04/17 [History Confirmed ] PMH/Surg Hx/FS Hx/Imm Hx Endocrine/Hematology History: Reports: Hx Anticoagulant Therapy - plavix, Other Endocrine/Hematological Disorders - hyperlipidemia Denies: Hx Diabetes, Hx Thyroid Disease Cardiovascular History: Reports: Hx Cardiomegaly, 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 Denies: Hx Myocardial Infarction, Hx Pacemaker/ICD Respiratory History: Denies: Hx Asthma, Hx Chronic Obstructive Pulmonary Disease (COPD) GI History: Denies: Hx Ulcer History: Reports: Hx Benign Prostatic Hyperplasia Denies: Hx Dialysis, Hx Renal Disease Comment Only: Other Problems/Disorders - urinary surgery unable to specify ; urinary incontinence with Tyson, TURP Musculoskeletal History: Reports: Hx Arthritis - R knee, Hx Gout, Other Musculoskeletal History - INJURY TO LOWER BACK VERTABRAE ON THE RIGHT SIDE - DID PHYSICAL THERAPY FOR Sensory History: Reports: Hx Cataracts, Hx Contacts or Glasses, Hx Glaucoma Denies: Hx Legally Blind, Hx Deafness, Hx Hearing Aid, Hx Hearing Problem Opthamlomology History: Reports: Hx Cataracts, Hx Contacts or Glasses, Hx Glaucoma Denies: Hx Legally Blind Neurological History: Reports: Hx Transient Ischemic Attacks (TIA) - 04/2013, Other Neuro Impairments/Disorders - Parkinsonian symptoms Psychiatric History: Reports: Hx Depression Denies: Hx Panic Disorder - Surgical History Surgery Procedure, Year, and Place: Triple bypass 2010 with Porcine tissue heart valve(pig valve safe upto 3Tmagnet)-[facility]. Right knee replacement - [facility]. TURP. tonsils. appendix. bilater cataract Hx Anesthesia Reactions: No - Immunization History Date of Tetanus Vaccine: PT STATES UNSURE Date of Influenza Vaccine: 2012 Infectious Disease History: No Infectious Disease History: Denies: Hx Clostridium Difficile, Hx Hepatitis, Hx Human Immunodeficiency Virus (HIV), Hx of Known/Suspected MRSA, Hx Shingles, Hx Tuberculosis, Hx Known/ Suspected VRE, Hx Known/Suspected VRSA, History Other Infectious Disease, Traveled Outside the US in Last 30 Days - Family History Known Family History: Positive: Cardiac Disease, Other - Colon [place] - Social History Alcohol Use: Occasionally Alcohol Amount: 3-4 OUNCES DAILY Hx Substance Use: No Substance Use Type: Reports: None Hx Tobacco Use: Yes - CIGARELLO'S Smoking Status (MU): Former Smoker Type: Cigars Amount Used/How Often: X 2 YEARS Have You Smoked in the Last Year: No Review of Systems Negative: Fever Negative: Shortness Of Breath Negative: Vomiting, Nausea Positive: incontinence, other - blood coming out of urethral meatus All Other Systems Reviewed And Are Negative: Yes Physical Exam - Summary Physical Exam Summary: Appearance: Well appearing, no pain distress Skin: warm, dry, reflects adequate perfusion Head/face: normal Eyes: EOMI, NELL ENT: normal. Moist mucous membranes Neck: supple, non-tender Respiratory: CTA, breath sounds present. Cardiovascular: RRR, pulses symmetrical. Heart bradycardic but regular. Soft systolic murmur. Abdomen: non-tender, soft : Blood at urethral meatus without pain Bowel Sounds: present Musculoskeletal: normal, strength/ROM intact. No LE edema. Neuro: normal, sensory motor intact, A&Ox3 Triage Information Reviewed: Yes Vital Signs On Initial Exam: Initial Vitals Temp Pulse Resp BP Pulse Ox 97.6 F 60 14 144/90 97 10/04/17 08:56 10/04/17 08:56 10/04/17 08:56 10/04/17 08:56 10/04/17 08:56 Vital Signs Reviewed: Yes Diagnostics - Vital Signs Vital Signs Temp Pulse Resp BP Pulse Ox 10/04/17 08:56 97.6 F 60 14 144/90 97 - Laboratory Lab Statement: Any lab studies that have been ordered have been reviewed, and results considered in the medical decision making process. Re-Evaluation - Re-Evaluation First Eval Re-Evaluation Time: 09:38 Change: Improved - Catheter has been placed. Pt wants to go home. GIGU Course/Dx - Course Course Of Treatment: Patient on Plavix and apparently pulled out his own Tyson catheter traumatically this morning. Some bleeding which is since stopped. Clot at the meatus. New catheter replaced and irrigated. It irrigated clear. Discharged back to nursing facility. - Diagnoses Provider Diagnoses: Dislodged Tyson catheter Discharge - Sign-Out/Discharge Documenting (check all that apply): Patient Departure - Discharge - Discharge Plan Condition: Improved Disposition: RESIDENTIAL FACILITY Patient Education Materials: Tyson Catheter Placement and Care (ED) Referrals: Trevor Ku MD [Primary Care Provider] - Additional Instructions: Return to [facility]. Return with persistent bleeding, catheter not working, fever , worse or other concerns. - Billing Disposition and Condition Condition: IMPROVED Disposition: [facility] Facility
[2017-10-04 10:08] VITALS: BP 145/57
== END 2017-10-04 10:07 ==
LOC: ED 08:49
DX: T83.028A Displacement of other urinary catheter, initial encounter (principal); Y84.6 Urinary catheterization as the cause of abnormal reaction of the patient, or of later complication, without mention of misadventure at the time of the procedure; Y92.9 Unspecified place or not applicable; Z87.891 Personal history of nicotine dependence; Z79.01 Long term (current) use of anticoagulants; E78.5 Hyperlipidemia, unspecified; I51.7 Cardiomegaly; I25.10 Atherosclerotic heart disease of native coronary artery without angina pectoris; Z95.2 Presence of prosthetic heart valve; N40.0 Benign prostatic hyperplasia without lower urinary tract symptoms
CPT/HCPCS: 51702; 99282

== ENCOUNTER 2017-10-05 10:44 | Emergency (ER) | payer MEDICARE, OTHER ==
--- NOTE | 2017-10-05 11:04 | ED ---
GI/ HPI - HPI Summary HPI Summary: This patient is an 87 year old M presenting to ED with a chief complaint of accidental catheter removal since about [id number]. The patient reports he was uncomfortable, but wasnt doing anything when it came out. The patient reports he doesnt have a clear memory of what happened that made him pull it out. The patient rates he is not currently in pain. Symptoms aggravated by nothing. Symptoms alleviated by nothing. Patient reports urine and stool incontinence and blood in his urine yesterday. Patient denies blood in his urine today. Current vitals include 73 BPM, 91 O2 sat, and BP 137/75. Home Medications Medication Instructions Recorded Confirmed Type Allopurinol TAB* [Zyloprim 300 MG 150 mg PO QAM 09/07/12 10/04/17 History TAB*] Dutasteride (NF) [Avodart (NF)] 0.5 mg PO QAM 09/07/12 10/04/17 History Latanoprost 0.005%* [Xalatan 1 drop BOTH EYES BEDTIME 09/07/12 10/04/17 History 0.005%*] Zolpidem TAB* [Ambien*] 3 mg PO BEDTIME PRN 09/07/12 10/04/17 History Atorvastatin* [Lipitor 20 MG*] 20 mg PO QPM 08/08/13 10/04/17 History Tamsulosin CAP* [Flomax CAP*] 0.4 mg PO DAILY 09/13/16 10/04/17 History Valsartan TAB* [Diovan TAB*] 40 mg PO DAILY 06/18/17 10/04/17 History Acetaminophen TAB* [Tylenol TAB*] 625 mg PO Q6H PRN 10/04/17 10/04/17 History Brimonid/Timolol 0.2/0.5%(NF) 1 drop BOTH EYES BID 10/04/17 10/04/17 History Carbidopa/Levodop 25/100 MG(*) 1 tab PO TID 10/04/17 10/04/17 History [Sinemet 25/100 TAB(*)] Clopidogrel TAB* [Plavix TAB*] 75 mg PO DAILY 10/04/17 10/04/17 History Oxybutynin Chloride [Ditropan Xl] 1 tab PO DAILY 10/04/17 10/04/17 History Potassium Chloride 20 meq PO SEE INSTRUCTIONS 10/04/17 10/04/17 History - History of Current Complaint Time Seen by Provider: 10/05/17 10:49 Stated Complaint: PROBLEM WITH CATHETER Hx Obtained From: Patient, Family/Fleet Service Clerk Onset/Duration: Started Hours Ago - about [id number] Timing: Lasting Hours - about 9164-4014 Current Severity: None Pain Intensity: 0 Associated Signs and Symptoms: Positive: Other: - Patient reports urine and stool incontinence and blood in his urine yesterday. Patient denies blood in his urine today. - Additional Pertinent History Primary Care Physician: [id number] - Allergy/Home Medications Allergies/Adverse Reactions: Allergies Allergy/AdvReac Type Severity Reaction Status Date / Time Sulfa (Sulfonamide Allergy Unknown Verified 06/18/17 19:57 Antibiotics) Reaction Details PMH/Surg Hx/FS Hx/Imm Hx Endocrine/Hematology History: Reports: Hx Anticoagulant Therapy - plavix, Other Endocrine/Hematological Disorders - hyperlipidemia Denies: Hx Diabetes, Hx Thyroid Disease Cardiovascular History: Reports: Hx Cardiomegaly, 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[employer] Denies: Hx Myocardial Infarction, Hx Pacemaker/ICD Respiratory History: Denies: Hx Asthma, Hx Chronic Obstructive Pulmonary Disease (COPD) GI History: Denies: Hx Ulcer History: Reports: Hx Benign Prostatic Hyperplasia Denies: Hx Dialysis, Hx Renal Disease Comment Only: Other Problems/Disorders - urinary surgery unable to specify ; urinary incontinence with Juarez, TURP Musculoskeletal History: Reports: Hx Arthritis - R knee, Hx Gout, Other Musculoskeletal History - INJURY TO LOWER BACK VERTABRAE ON THE RIGHT SIDE - DID PHYSICAL THERAPY FOR Sensory History: Reports: Hx Cataracts, Hx Contacts or Glasses, Hx Glaucoma Denies: Hx Legally Blind, Hx Deafness, Hx Hearing Aid, Hx Hearing Problem Opthamlomology History: Reports: Hx Cataracts, Hx Contacts or Glasses, Hx Glaucoma Denies: Hx Legally Blind Neurological History: Reports: Hx Transient Ischemic Attacks (TIA) - 04/2013, Other Neuro Impairments/Disorders - Parkinsonian symptoms Psychiatric History: Reports: Hx Depression Denies: Hx Panic Disorder - Surgical History Surgery Procedure, Year, and Place: Triple bypass 2010 with Porcine tissue heart valve(pig valve safe upto 3Tmagnet)-[facility]. Right knee replacement - [facility]. TURP. tonsils. appendix. bilater cataract Hx Anesthesia Reactions: No - Immunization History Date of Tetanus Vaccine: PT STATES UNSURE Date of Influenza Vaccine: 2013 Infectious Disease History: No Infectious Disease History: Denies: Hx Clostridium Difficile, Hx Hepatitis, Hx Human Immunodeficiency Virus (HIV), Hx of Known/Suspected MRSA, Hx Shingles, Hx Tuberculosis, Hx Known/ Suspected VRE, Hx Known/Suspected VRSA, History Other Infectious Disease, Traveled Outside the [place] in Last 30 Days - Family History Known Family History: Positive: Cardiac Disease, Other - Colon [place] - Social History Alcohol Use: Occasionally Alcohol Amount: 3-4 OUNCES DAILY Hx Substance Use: No Substance Use Type: Reports: None Hx Tobacco Use: Yes - CIGARELLO'S Smoking Status (MU): Former Smoker Type: Cigars Amount Used/How Often: X 2 YEARS Have You Smoked in the Last Year: No Review of Systems Positive: Other - currently is in no pain; doesn't remember clearly what happened during accidental removal of catheter Positive: hematuria - yesterday but none today, incontinence - of urine and stool, other - accidental catheter removal All Other Systems Reviewed And Are Negative: Yes Physical Exam - Summary Physical Exam Summary: Appearance: Well-appearing, moderate pain distress, well-nourished Skin: Warm, color reflects adequate perfusion, dry Head: Normal Head/Face inspection, atraumatic Eyes: Conjunctiva clear ENT: Normal inspection Neck: Supple, no nodes, no JVD Respiratory: Lungs clear, normal breath sounds, no respiratory distress Cardio: RRR, No murmur, pulses normal, brisk capillary refill Abdomen: Soft, nontender Bowel sounds: Present Musculoskeletal: Strength Intact/ROM intact, no calf tenderness, no edema. Psychological: Normal Neuro: Alert, muscle tone normal, no focal deficit Triage Information Reviewed: Yes Vital Signs On Initial Exam: Initial Vitals Temp Pulse Resp BP Pulse Ox 96.8 F 71 16 137/75 95 10/05/17 10:51 10/05/17 10:51 10/05/17 10:51 10/05/17 10:51 10/05/17 10:51 Vital Signs Reviewed: Yes Diagnostics - Vital Signs Vital Signs Temp Pulse Resp BP Pulse Ox 10/05/17 10:51 96.8 F 71 16 137/75 95 - Laboratory Lab Statement: Any lab studies that have been ordered have been reviewed, and results considered in the medical decision making process. Re-Evaluation - Re-Evaluation First Eval Re-Evaluation Time: 12:42 Comment: Patient remains confused and I explained multiple times why we cant replace catheter. understands. [facility] did not call back. Discussed discharge plan with patient and . GIGU Course/Dx - Course Assessment/Plan: Consulted Dr. Whitehead who says under no circumstances to place the catheter back in due to his dementia. He says the patient should stop Plavix for next 5 days until the hematuria resolves. Consulted Jalen (nurse) at [facility] at 1251 about the patient's case. Allergies noted. Pt medications reviewed this visit. The patient will be discharged with instructions to follow up with Dr. Whitehead. The patient is agreeable with this plan. - Diagnoses Differential Diagnoses - Male: Other - juarez catheter problem, confusion Provider Diagnoses: Juarez catheter problem, Confusion - Physician Notifications Discussed Care Of Patient With: Amish Whitehead Time Discussed With Above Provider: 11:48 Instructed by Provider To: Other - Consulted Dr. Whitehead who says under no circumstances to place the catheter back in due to his dementia. He says the patient should stop Plavix for next 5 days until the hematuria resolves. Consulted Jalen (nurse) at [facility] at 1251 about the patient's case. Discharge - Sign-Out/Discharge Documenting (check all that apply): Patient Departure - Discharge Plan Condition: Stable Disposition: HOME Patient Education Materials: Urinary Incontinence (ED) Referrals: Trevor Ku MD [Primary Care Provider] - 2 Days Manny Taylor MD [Medical Doctor] - As Soon As Possible Additional Instructions: We have discussed your care today with Dr. Whitehead. He wants you to stop plavix for 3 days until the hematuria (blood in your urine ) resolves. Dr. Whitehead stated that you absolutely should not have a cathether replaced due to your confusion. Have definite follow up with Dr. Taylor as soon as possible. Call the office today to get an appointment. Return to the ER if you have any new or worsening symptoms.
[2017-10-05 12:57] VITALS: BP 156/79
== END 2017-10-05 12:56 | disposition home or self-care (01) ==
LOC: ED 10:44
DX: T83.098A Other mechanical complication of other urinary catheter, initial encounter (principal); R41.0 Disorientation, unspecified; F03.90 Unspecified dementia, unspecified severity, without behavioral disturbance, psychotic disturbance, mood disturbance, and anxiety; R31.9 Hematuria, unspecified; R32 Unspecified urinary incontinence; R15.9 Full incontinence of feces; I25.10 Atherosclerotic heart disease of native coronary artery without angina pectoris; Z95.4 Presence of other heart-valve replacement; Z79.02 Long term (current) use of antithrombotics/antiplatelets; Z86.73 Personal history of transient ischemic attack (TIA), and cerebral infarction without residual deficits; Z95.1 Presence of aortocoronary bypass graft; Z87.891 Personal history of nicotine dependence; Z88.2 Allergy status to sulfonamides
CPT/HCPCS: 99282

== ENCOUNTER 2018-01-26 03:06 | Inpatient (IN) | payer MEDICARE, OTHER ==
--- NOTE | 2018-01-26 03:27 | ED ---
Upper Extremity Pain - HPI Summary HPI Summary: Patient is a 87 y/o M BIBA from [place] w/ c/o ecchymosis, swelling, pain, slight numbness/tingling and inability to straighten right elbow. Sx onset a few hours ago. He notes that he fell a couple of days ago and landed on his right side, he denies head trauma and LOC. Patient reports Hx of difficulty straightening his elbow previously, but he cannot recall if he had difficulty with his right or left elbow previously. Patient is right-handed, he notes Hx of mechanical falls. On triage, pain is rated 1/10. Nothing is noted to aggravate/alleviate Sx. Home medications and allergies are reviewed. - History of Current Complaint Stated Complaint: FALL Time Seen by Provider: 01/26/18 03:08 Hx Obtained From: Patient Mechanism Of Injury: Other - fell on right side a couple of days ago Onset/Duration: Started Hours Ago, Still Present Timing: Constant Severity Currently: Mild - 1/10 Pain Location: Other: - RUE Aggravating Factor(s): Nothing Alleviating Factor(s): Nothing Associated Signs & Symptoms: Positive: Swelling, Bruising, Numbness/Tingling, Other - difficulty straightening right arm, no head trauma, no LOC - Allergies/Home Medications Allergies/Adverse Reactions: Allergies Allergy/AdvReac Type Severity Reaction Status Date / Time Sulfa (Sulfonamide Allergy Unknown Verified 06/18/17 19:57 Antibiotics) Reaction Details PMH/Surg Hx/FS Hx/Imm Hx Endocrine/Hematology History: Reports: Hx Anticoagulant Therapy - plavix, Other Endocrine/Hematological Disorders - hyperlipidemia Denies: Hx Diabetes, Hx Thyroid Disease Cardiovascular History: Reports: Hx Cardiomegaly, 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 Denies: Hx Myocardial Infarction, Hx Pacemaker/ICD Respiratory History: Denies: Hx Asthma, Hx Chronic Obstructive Pulmonary Disease (COPD) GI History: Denies: Hx Ulcer History: Reports: Hx Benign Prostatic Hyperplasia Denies: Hx Dialysis, Hx Renal Disease Comment Only: Other Problems/Disorders - urinary surgery unable to specify ; urinary incontinence with Tyson, TURP Musculoskeletal History: Reports: Hx Arthritis - R knee, Hx Gout, Other Musculoskeletal History - INJURY TO LOWER BACK VERTABRAE ON THE RIGHT SIDE - DID PHYSICAL THERAPY FOR Sensory History: Reports: Hx Cataracts, Hx Contacts or Glasses, Hx Glaucoma Denies: Hx Legally Blind, Hx Deafness, Hx Hearing Aid, Hx Hearing Problem Opthamlomology History: Reports: Hx Cataracts, Hx Contacts or Glasses, Hx Glaucoma Denies: Hx Legally Blind Neurological History: Reports: Hx Transient Ischemic Attacks (TIA) - 04/2013, Other Neuro Impairments/Disorders - Parkinsonian symptoms Psychiatric History: Reports: Hx Depression Denies: Hx Panic Disorder - Surgical History Surgery Procedure, Year, and Place: Triple bypass 2010 with Porcine tissue heart valve(pig valve safe upto 3Tmagnet)-[facility]. Right knee replacement - [facility]. TURP. tonsils. appendix. bilater cataract Hx Anesthesia Reactions: No - Immunization History Date of Tetanus Vaccine: PT STATES UNSURE Date of Influenza Vaccine: 2012 Infectious Disease History: No Infectious Disease History: Denies: Hx Clostridium Difficile, Hx Hepatitis, Hx Human Immunodeficiency Virus (HIV), Hx of Known/Suspected MRSA, Hx Shingles, Hx Tuberculosis, Hx Known/ Suspected VRE, Hx Known/Suspected VRSA, History Other Infectious Disease, Traveled Outside the US in Last 30 Days - Family History Known Family History: Positive: Cardiac Disease, Other - Colon [place] - Social History Alcohol Use: Occasionally Alcohol Amount: 3-4 OUNCES DAILY Hx Substance Use: No Substance Use Type: Reports: None Hx Tobacco Use: Yes - CIGARELLO'S Smoking Status (MU): Former Smoker Type: Cigars Amount Used/How Often: X 2 YEARS Have You Smoked in the Last Year: No Review of Systems Positive: Other - ecchymosis, swelling, pain and difficulty straightening RUE, no head trauma Positive: Numbness - tingling of RUE. Negative: Syncope - no LOC All Other Systems Reviewed And Are Negative: Yes Physical Exam - Summary Physical Exam Summary: VITAL SIGNS: Reviewed. GENERAL: Patient is a well-developed and nourished male who is lying comfortable in the stretcher. Patient is not in any acute respiratory distress. HEAD AND FACE: No signs of trauma. No ecchymosis, hematomas or skull depressions. No sinus tenderness. EYES: PERRLA, EOMI x 2, No injected conjunctiva, no nystagmus. EARS: Hearing grossly intact. Ear canals and tympanic membranes are within normal limits. MOUTH: Oropharynx within normal limits. NECK: Supple, trachea is midline, no adenopathy, no JVD, no carotid bruit, no c- spine tenderness, neck with full ROM. CHEST: Symmetric, no tenderness at palpation LUNGS: Clear to auscultation bilaterally. No wheezing or crackles. CVS: Irregularly irregular, S1 and S2 present, no murmurs or gallops appreciated. ABDOMEN: Soft, non-tender. No signs of distention. No rebound no guarding, and no masses palpated. Bowel sounds are normal. EXTREMITIES: No cyanosis or clubbing. Trace BLE edema, intermittently-aged bruises over right elbow with swelling, unable to extend elbow beyond 10 degrees , which could possibly be his baseline. NEURO: Alert and oriented x 3. No acute neurological deficits. Speech is normal and follows commands. SKIN: Dry and warm Triage Information Reviewed: Yes Vital Signs On Initial Exam: Initial Vitals Temp Pulse Resp BP Pulse Ox 98.6 F 115 18 151/118 98 01/26/18 03:11 01/26/18 03:11 01/26/18 03:11 01/26/18 03:11 01/26/18 03:11 Vital Signs Reviewed: Yes Diagnostics - Vital Signs Vital Signs Temp Pulse Resp BP Pulse Ox 01/26/18 03:11 98.6 F 115 18 151/118 98 - Laboratory Result Diagrams: 01/26/18 03:38 01/26/18 03:38 Lab Statement: Any lab studies that have been ordered have been reviewed, and results considered in the medical decision making process. Course/Dx - Course Course Of Treatment: Patient is a 87 y/o M BIBA from [place] w/ c/o ecchymosis , swelling, pain, slight numbness/tingling and inability to straighten right elbow. Sx onset a few hours ago. He notes that he fell a couple of days ago and landed on his right side, he denies head trauma and LOC. Patient reports Hx of difficulty straightening his elbow previously, but he cannot recall if he had difficulty with his right or left elbow previously. Patient is right-handed, he notes Hx of mechanical falls. On physical exam, patient is noted to have trace BLE edema, intermittently-aged bruises over right elbow with swelling, unable to extend elbow beyond 10 degrees, which could possibly be his baseline. Patient is also noted to be irregularly irregular on physical exam. EKG showed afib with rate of 117 BPM, q waves in inferior leads. Patient has no PMHx of afib. During ED course, patient received diltiazem 10 mg IV SLOW PUSH ONCE. Labs showed ALT < 3, magnesium 1.9, INR 1.05, APTT 28.3, Hgb 13.5, Hct 40, Plt count 107. Patient's case was discussed with Dr. Castellanos, Dr. Castellanos accepts patient for admission. Dx of afib and right elbow contusion. - Diagnoses Provider Diagnoses: Afib, Contusion of right elbow - Physician Notifications Discussed Care of Patient With: Mandie Castellanos Time Discussed With Above Provider: 04:19 Instructed by Provider To: Other - 0419 hospitalist paged at this time. Dr. Castellanos states that she will talk to Dr. Escoto shortly. 0502 Dr. Castellanos called back. Patient's case was discussed with Dr. Castellanos, Dr. Castellanos accepts patient for admission. Discharge - Sign-Out/Discharge Documenting (check all that apply): Patient Departure - admit - Discharge Plan Condition: Good Disposition: ADMITTED TO [facility] Referrals: Trevor Ku MD [Primary Care Provider] - - Attestation Statements Document Initiated by Scribe: Yes Documenting Scribe: Trevor Piña Provider For Whom Sherly is Documenting (Include Credential): Thiago Escoto MD Scribe Attestation: Trevor Blevins , scribed for Thiago Escoto MD on 01/26/18 at 0531.
[2018-01-26] MEDS ORDERED: Diltiazem IV* 5 MG/ML 5 ML VIAL (for loading dose/IV Push) (25 MG) IV SLOW PU ONE (03:37)
[2018-01-26 03:47] LABS: ABS Basophils 0.1 10^3/ul (0-0.2); ABS Eosinophils 0.2 10^3/ul (0-0.6); ABS Lymphocytes 1.6 10^3/ul (1.0-4.8); ABS Neutrophils 6.4 10^3/ul (1.5-7.7); ABS Nucleated RBC 0 10^3/ul; Eosinophil % 2.4 % (0-6); Hematocrit 40 % (42-52); Hemoglobin 13.5 g/dl (14.0-18.0); Lymphocyte % 17.2 % (25-47); Mean Corpuscular HGB Conc 34 g/dl (31-36); Mean Corpuscular Hemoglobin 30 pg (27-31); Mean Corpuscular Volume 88 fL (80-94); Mean Platelet Volume 8.3 fL (7.4-10.4); Nucleated Red Blood Cells % 0.1; Platelet Count 107 10^3/ul (150-450); Red Blood Count 4.51 10^6/ul (4.00-5.40); Red Cell Distribution Width 14 % (10.5-15); White Blood Count 9.2 10^3/ul (3.5-10.8)
[2018-01-26 04:06] LABS: EGFR Non-African American 77.5 (>60)
[2018-01-26 04:08] LABS: INR 1.05 (0.77-1.02)
[2018-01-26] MEDS ORDERED: Acetaminophen TAB* 325 MG PO PRN (05:27)
[2018-01-26] MEDS ORDERED: NS 0.9% 1000 ML* 1,000 ML IV SCH (05:30)
[2018-01-26] MEDS ORDERED: hydrALAZINE IV* 20 MG/ML VIAL IV SLOW PU PRN (06:27)
--- NOTE | 2018-01-26 08:12 | ADMNOTE ---
Subjective Date of Service: 01/26/18 Interval History: code status full this is an admission h/p poor historian ---> ? dementia hpi this is a 87 yr old wm from [facility] living who fell two days ago ( he did not remember the details or any complaints how he fell ) now he has a residual large hematoma on the right elbow. pt was sent in to eval the r elbow last night. when this internal communications writer asked him what has bothered him, he said that he was checked by the staff at night and was found to have he has a very bruised elbow ---> sent to er other details he did not rememeber. initial elbow x ray did not show any acute fx. however, pt was found to be in rapid a flutter at rate of 119. he denied any hx of a fib/a flutter--> got cardiazem iv push from er. hr then slowed down to 80-90s. he has no phx of a fib/a flutter. he does have a hx of aortic valve replacement with pig valve. first trop was neg phx unsteady gait walks with a walker hx of heart valve replacement with pig valve bph htn urinary inc dementia insomonia hypokalemia pshx s/p aortic valve surg s/p b/l leg surg ( left leg more than r leg ) at age 15 social hx no cig occ etoh walks with a walker lives in a indep living fhx dad + cad Family History: Findings - dad + cad Social History: Findings - no cig occ etoh walks with a walker Past Medical History: Findings - as above Review of Systems - Measurements Intake and Output: Intake and Output Last 24 Hours 01/24/18 01/25/18 01/26/18 01/27/18 06:59 06:59 06:59 06:59 Weight 130 lb - Review of Systems General Comments: pertinent as per hpi pt remembered he fell two days ago the detail of how he fell did not remember he has right elbow pain and large hematoma Objective Active Medications: Acetaminophen (Tylenol Tab*) 625 mg PO Q6H PRN PRN Reason: FEVER/PAIN Allopurinol (Zyloprim Tab*) 300 mg PO QAM [facility] Atorvastatin Calcium (Lipitor*) 20 mg PO QPM [facility] Brimonidine/Timolol (Combigan Ophth (Nf)) 1 drop BOTH EYES BID [facility] Carbidopa/Levodopa (Sinemet 25/100 Tab(*)) 1 tab PO TID [facility] Hydralazine HCl (Apresoline Iv*) 5 mg IV SLOW PU Q6H PRN PRN Reason: BLOOD PRESSURE Sodium Chloride (Ns 0.9% 1000 Ml*) 1,000 mls @ 50 mls/hr IV PER RATE [facility] Latanoprost (Xalatan 0.005%*) 1 drop BOTH EYES BEDTIME [facility] Vital Signs - 8 hr 01/26/18 01/26/18 01/26/18 03:10 03:11 03:12 Temperature 98.6 F Pulse Rate 143 122 110 Respiratory 18 Rate Blood Pressure 173/119 151/118 154/118 (mmHg) O2 Sat by Pulse 94 96 97 Oximetry 01/26/18 01/26/18 01/26/18 03:14 03:36 03:41 Temperature Pulse Rate 113 112 118 Respiratory 18 24 10 Rate Blood Pressure 156/107 153/98 154/117 (mmHg) O2 Sat by Pulse 97 95 97 Oximetry 01/26/18 01/26/18 01/26/18 04:00 05:00 05:50 Temperature 98.0 F Pulse Rate 90 94 70 Respiratory 23 15 18 Rate Blood Pressure 151/97 (mmHg) O2 Sat by Pulse 96 95 99 Oximetry Oxygen Devices in Use Now: Nasal Cannula Appearance: nad Eyes: No Scleral Icterus, PERRLA Ears/Nose/Mouth/Throat: NL Teeth, Lips, Gums, Clear Oropharnyx, Mucous Membranes Moist Neck: NL Appearance and Movements; NL JVP, Trachea Midline, No Thyroid Enlargement, Masses Respiratory: Symmetrical Chest Expansion and Respiratory Effort, Clear to Auscultation Cardiovascular: NL Sounds; No Murmurs; No JVD, - - irregular Abdominal: NL Sounds; No Tenderness; No Distention Extremities: - - 1-2 pedal edema able to rise ue an le against gravity Skin: No Rash or Ulcers Neurological: Alert and Oriented x 3, NL Sensation, NL Muscle Strength and Tone Result Diagrams: 01/26/18 03:38 01/26/18 03:38 EKG Data: a flutter at rete of [address] t changes from prior Assess/Plan/Problems-Billing Assessment: this is a 87 yr old wm with pig valve for aortic valve replacement prior presented to er with hx for a fall two days ago pt was sent in due to r elbow hematoma ---> pt was found to have new onset of a flutter head ct done on admisison neg of bleed - Patient Problems (1) Fall Current Visit: Yes Status: Acute Comment: no gross signs of infection tele with teodoro ck his orthostatic in am (2) Traumatic hematoma of right elbow Current Visit: Yes Status: Acute Code(s): S50.01XA - CONTUSION OF RIGHT ELBOW, INITIAL ENCOUNTER SNOMED Code(s): 21743846 Comment: ot eval for mobility ice pack prn percocet for pain ? ct scna to eval later (3) Atrial flutter Current Visit: Yes Status: Acute Code(s): I48.92 - UNSPECIFIED ATRIAL FLUTTER SNOMED Code(s): 6853148 Comment: this is new but not sure of durtion head ct is neg just in case anticoag needed tele echo ordered for am ? need for ortho to comment anticog due to concurrent r elbow hematoma (4) Hypertensive urgency Current Visit: Yes Status: Acute Code(s): I16.0 - HYPERTENSIVE URGENCY SNOMED Code(s): 309970578 Comment: resume his home meds hydralazine prn 5 mg if needed
[2018-01-26] MEDS ORDERED: Zolpidem TAB* 5 MG PO PRN ×2 (08:25→15:18)
[2018-01-26] MEDS ORDERED: Allopurinol TAB* 300 MG PO SCH (09:00)
[2018-01-26] MEDS ORDERED: Potassium Chlor TAB* 20 MEQ TAB.ER PO SCH (09:00)
[2018-01-26] MEDS ORDERED: CANDESARTAN 4 MG PO SCH (09:00)
[2018-01-26] MEDS: Potassium Chloride LIQUID* 20 MEQ PACKET PO SCH ×2 (09:29→20:57)
[2018-01-26] MEDS: Acetaminophen TAB* 325 MG PO PRN ×2 (09:31→20:58)
[2018-01-26] MEDS: Allopurinol TAB* 300 MG PO SCH (09:31)
[2018-01-26] MEDS: Clopidogrel TAB* 75 MG PO SCH (09:31)
[2018-01-26] MEDS: Tamsulosin CAP* 0.4 MG PO SCH (09:32)
[2018-01-26] MEDS: Finasteride TAB* 5 MG PO SCH (09:33)
[2018-01-26] MEDS: Carbidopa/Levodop 25/100 MG TAB(*) PO SCH ×3 (09:35→20:56)
[2018-01-26] MEDS: TIMOLOL BOTH EYES SCH ×2 (09:39→20:59)
[2018-01-26] MEDS: BRIMONIDINE BOTH EYES SCH ×2 (09:39→20:59)
[2018-01-26] MEDS: Oxybutynin XL TAB* 5 MG PO SCH (10:48)
[2018-01-26] MEDS: Memantine TAB* 5 MG PO SCH ×2 (10:48→20:56)
[2018-01-26] MEDS ORDERED: Magnesium Sulfate 1 GM IV* 1 GM/100 ML BAG IV ONE (11:12)
--- NOTE | 2018-01-26 11:51 | PN ---
Hospitalist Progress Note Date of Service: 01/26/18 Pt seen and evaluated. 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 Macias) p/w fall and right elbow hematoma. Also in Aflutter w/ RVR s/ p 10mg dilt. No known history. Right elbow read as questionable impacted right radial head fracture. PT/OT ordered ortho consult planned. f/u orthostatics. f/u ECHO. BB/CCB as needed for rate control. Hold ARB. Replete lytes prn.
--- NOTE | 2018-01-26 14:39 | ECHO ---
Patient: TIM GARCIA [facility] Rec#: [id number] : 1930 Date: 01/26/2018 Age: 87y Height: 170.18 cm / 67.0 in Weight: 58.97 kg / 130.0 lbs Sex: M BSA: 1.68 Room#: [facility] Admit Date#: 01/26/2018 Type: Inpatient Referring: Mandie Castellanos Reading: Mercy Puentes MD Duct Layer: Francia Moreira,CANCS,RDMS CC: Trevor Ku MD Transthoracic Echocardiogram Indication: AFIB BP: 151/97 HR: 109 Rhythm: A-Fib Findings History: AVR, CAD, CABG, HTN, HLD Technical Comments: The study quality is good. Left Ventricle: The left ventricular chamber size is decreased. Moderate concentric left ventricular hypertrophy is observed. There is a prominent septal knuckle. Global left ventricular wall motion and contractility are within normal limits. The estimated ejection fraction is 55-60%. The assessment of diastolic function is non-diagnostic. Left Atrium: The left atrium is severely dilated. Right Ventricle: The right ventricular chamber size and systolic function are within normal limits. Right Atrium: The right atrium is mild to moderately dilated. Aortic Valve: There is a trace of aortic regurgitation. The mean gradient of the aortic valve is 5.3 mmHg. The aortic valve area, by VTI's, is calculated at 1.5 cm2. A bio-prosthetic aortic valve is present. The prosthetic aortic valve leaflets are normal. The bio-prosthetic aortic valve appears to be functioning normally. Mitral Valve: There is mitral annular calcification. The mitral valve leaflets are mildly thickened. There is moderate mitral regurgitation. There is no evidence of mitral stenosis. Tricuspid Valve: The tricuspid valve leaflets are normal. There is trace tricuspid regurgitation. Unable to estimate the right ventricular systolic pressure. Pulmonic Valve: The pulmonic valve structure is not well visualized. There is a trace pulmonic regurgitation. Pericardium: There is no significant pericardial effusion. Aorta: There is mild dilatation of the ascending aorta. There is no dilatation of the aortic arch. There is mild dilatation of the aortic root. Pulmonary Artery: The main pulmonary artery appears normal. Venous: The inferior vena cava appears normal in size. There is less than 50% respiratory change in the inferior vena cava dimension. Summary: There are changes noted when compared to the previous study done on 04/25/2015, MR is now moderate instead of mild then. Otherwise no overt sig changes. Conclusions The left ventricular chamber size is decreased. Moderate concentric left ventricular hypertrophy is observed. The estimated ejection fraction is 55-60%. The assessment of diastolic function is non-diagnostic. The left atrium is severely dilated. The right atrium is mild to moderately dilated. There is a trace of aortic regurgitation. A bio-prosthetic aortic valve is present. The bio-prosthetic aortic valve appears to be functioning normally. There is moderate mitral regurgitation. There is trace tricuspid regurgitation. There is a trace pulmonic regurgitation. There is mild dilatation of the ascending aorta. There is mild dilatation of the aortic root. There are changes noted when compared to the previous study done on 04/25/2015, MR is now moderate instead of mild then. Otherwise no overt sig changes. Measurements Name Value Normal Range RVIDd (AP) 2D 2.5 cm (0.9 - 2.6) RVDdMajor (2D) 3.1 cm (2.2 - 4.4) RAd ISD 4CH 5.9 cm (3.4 - 4.9) RA (A4C)W 4.1 cm (2.9 - 4.6) IVSd (2D) 2 cm (0.6 - 1) LVPWd (2D) 1.6 cm (0.6 - 1) LVIDd (2D) 3.2 cm (3.6 - 5.4) LVIDs (2D) 2.8 cm - LV FS (2D) 13 % (25 - 45) Aortic Annulus 2 cm (1.4 - 2.6) Ao root diameter (2D) 4 cm (2.1 - 3.5) Ascending Ao 3.8 cm (2.1 - 3.4) Aortic arch 3.1 cm (1.8 - 3.4) LA dimension (AP) 2D 6 cm (2.3 - 3.8) LAd ISD 4CH 6.1 cm (2.9 - 5.3) LA ISD 4CH W 5.8 cm (2.5 - 4.5) Name Value Normal Range LA ESV SP 4CH (A/L) 114.37 ml - LA ESV SP 2CH (A/L) 126.25 ml - LA ESV BP (A/L) 122.84 ml - LA ESV BP (A/L) index 73 ml/m2 - LA ESV SP 4CH (MOD) 110.28 ml - LA ESV SP 2CH (MOD) 120.52 ml - Name Value Normal Range MV E-wave Vmax 1 m/sec - MV deceleration time 119 msec - LV septal e' Vmax 0.05 m/sec - LV E:e' septal ratio 21 ratio - Name Value Normal Range AV Vmax 1.5 m/sec - AV VTI 27 cm - AV peak gradient 9 mmHg - AV mean gradient 5.3 mmHg - LVOT diameter 2 cm - LVOT Vmax 0.6 m/sec - LVOT VTI 13 cm - LVOT peak gradient 1.5 mmHg - LVOT mean gradient 0.8 mmHg - DOI (VTI) 0.5 ratio - DELVIS (continuity Vmax) 1.3 cm2 - DELVIS (continuity VTI) 1.5 cm2 - MERY Vmax 0.5 m/sec - Name Value Normal Range MV Vmax 1.1 m/sec - MV VTI 18.2 cm - MV peak gradient 5 mmHg - MV mean gradient 1.5 mmHg - MV PHT 38 msec - MR Vmax 5.8 m/sec - MR VTI 167 cm - MR flow (PISA) 75 ml/sec - MR PISA radius 0.6 cm - MR alias Vmax 31 cm/sec - MVA (PHT) 5.8 cm2 - MVA (continuity VTI) 2.3 cm2 - Name Value Normal Range RAP 8 mmHg - IVC diameter 2 cm - Name Value Normal Range PV Vmax 0.7 m/sec - PV peak gradient 2 mmHg -
[2018-01-26] MEDS: Atorvastatin* 20 MG TAB PO SCH (17:11)
--- NOTE | 2018-01-26 18:07 | CONSULT ---
Consult Consult: Orthopedic Surgery Consultation Date: 01/26/18 Requesting Service: Medicine Chief Complaint: Right elbow pain History: Josh is an 87-year-old man who is a poor historian. He reports that he fell a couple of days ago onto his right elbow. He had pain, swelling and bruising at the right elbow. He was admitted to the hospital for an arrhythmia. He reports that the pain in the elbow has been improving. He does report that he has some baseline pain and stiffness at the right elbow, which has been long-standing for many years. He denies pain anywhere else from the fall. Review of Systems: Negative for fever, recent visual changes, difficulty swallowing, chest pain, shortness of breath, abdominal pain, hematuria, easy bruising, diffuse weakness or lack of coordination, and diffuse rash. PMH: Heart valve replacement, BPH, hypertension, urinary incontinence, dementia , insomnia, hypokalemia, TIA, ID PSH:, aortic valve surgery, bilateral leg surgeries as a kid, TURP, TKA Medications:, Tylenol, allopurinol, atorvastatin, eyedrops, Sinemet, hydralazine Allergies: sulfa SH: no cigarette or alcohol use. Uses a walker at baseline. FH: Coronary artery disease Physical Examination: Constitutional: General appearance is healthy and non-septic in no acute distress. Cardiovascular: Pulse examination demonstrates positive radial pulses with brisk capillary refill. There are no varicosities Abdomen: Soft and nontender Lymphatic: No lymphadenopathy appreciated. Skin: Skin intact in RUE, no rashes Psychiatric / Neurological: Appropriate affect. Alert and oriented to person, place and time. There is no significant abnormality in coordination appreciated. Normoreflexive deep tendon reflex of the affected extremity. Musculoskeletal: Bilateral lower extremities and contralateral upper extremity show full range of motion with no evidence of instability and no tenderness with palpation and 5 /5 strength. There is no gross deformity. There is 5/5 motor strength and intact light touch sensation. Swelling/edema - positive at elbow The skin and nails are normal to inspection/palpation without evidence of RSD or lymphadenopathy. Elbow ROM limited to 30 degree arc of mid motion. He reports it is more limited than his already limited baseline. 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 Possible impacted radial head/neck fracture. Impression and Plan: Closed right radial head/neck fracture, nondisplaced., he does have limited motion at baseline from his synovial chondromatosis. This does appear to be worsened since the injury. I do recommend nonweightbearing in the right upper extremity, rest and immobilization with a sling. He will follow up as an outpatient with Dr. Santiago. All questions were answered. Aramis House MD
[2018-01-26 19:08] LABS: Urine Appearance Clear; Urine Blood Negative (Negative); Urine Color Yellow; Urine Ketones Trace (Negative); Urine Protein Negative (Negative); Urine Urobilinogen Negative (Negative)
--- NOTE | 2018-01-26 20:11 | CONS ---
CONSULTATION REPORT: DATE OF CONSULT: 01/26/18 ATTENDING ORTHOPEDIC PROVIDER: Dr. Aramis House. CHIEF COMPLAINT: Right elbow pain. HISTORY OF PRESENT ILLNESS: Mr. Hoffman is an 87-year-old male, who was brought in by ambulance from [facility] on 01/26/18 with a complaint of fall at home a couple of days ago resulting in pain on the right elbow as well as inability to straighten the elbow. At baseline he has decreased ROM of the elbow which is much reduced after this incident. X-ray demonstrated concern for impacted fracture of the right radial head and Orthopedics was asked to evaluate. Today he has mild pain of the right elbow and decreased ability to straighten the elbow . His elbow is quite comfortable while at rest. It is painful with movement. Denies other injuries from the fall. PAST MEDICAL HISTORY: Cardiomegaly, coronary artery disease, hypercholesterolemia, hypertension, valvular heart disease, TIA, possible Parkinson's. PAST SURGICAL HISTORY: Triple bypass in 2010, aortic valve replacement with porcine heart tissue, right knee replacement, TURP, tonsils, appendectomy, bilateral cataracts. No history of difficulties with anesthesia. ALLERGIES: SULFA DRUGS. FAMILY HISTORY: Positive for cardiac disease. SOCIAL HISTORY: Occasional alcohol use 3 to 4 ounces daily. No drug use. Does smoke cigarillos formerly, no longer smokes. REVIEW OF SYSTEMS: The patient is minimally interacting with my exam, so review of systems was somewhat limited. Head: Denies any head trauma or headache. Cardiac: Denies any chest pain. Respiratory: Denies any difficulty breathing. Abdomen: Denies abdominal pain. Musculoskeletal: Confirms right elbow pain, worse with movement. Neuro: Denies any numbness right upper extremity. Denies any loss of consciousness with fall. PHYSICAL EXAM: Vital Signs: Temperature 97.7, pulse rate 84, respiratory rate 18, oxygen saturation 95%, blood pressure 102/66. General: The patient is lying comfortably in bed, in no acute distress. Head: Normocephalic, atraumatic. Eyes: Extraocular movements intact. Ears: Hearing grossly intact. Neck: No C-spine tenderness. Chest: S1, S2 present. Lungs: Clear to auscultation bilaterally without wheezing, rales, or rhonchi. Abdomen: Bowel sounds normoactive. Soft, nontender. No guarding. No rigidity. Extremities: Right upper extremity: Skin envelope is intact. The patient does have ecchymosis about the elbow joint. He does have some mild tenderness over the radial head. Elbow range of motion is from roughly 60 degrees to 90 degrees. He is able to flex and extend at the wrist, MCPs, PIPs, and DIPs. Okay sign and opposition intact. Forward flexion and abduction intact at the shoulder. No tenderness along the clavicle. He is nontender throughout the right upper extremity aside from radial head tenderness. Left upper extremity: Skin envelope intact. He is nontender to palpation. Flexion and extension at the elbow, wrist, digits intact and nonpainful. Able to abduct and forward flex the shoulder without any pain. Bilateral lower extremities with skin envelope intact. Able to flex and extend at the hips, knees, ankles, and MTPs without pain. He is nontender to palpation. There is no gross deformity. Neuro : Sensation is intact to light touch throughout the right upper extremity. Vascular: Radial pulses 2+ bilaterally. Capillary refill less than 2 seconds distally RUE. 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 ASSESSMENT: Right radial head fracture. PLAN: The patient will be placed in a sling. He will be nonweightbearing on the right upper extremity. Plan is for him to follow up in our clinic with Dr. Santiago at discharge. LEVI LERMA [id number]/[facility] #: [id number] AMI
[2018-01-26] MEDS: Latanoprost 0.005%* 2.5 ml BTL BOTH EYES SCH (20:59)
[2018-01-27] MEDS: Acetaminophen TAB* 325 MG PO PRN (05:17)
[2018-01-27 07:07] LABS: Hematocrit 36 % (42-52); Hemoglobin 12.1 g/dl (14.0-18.0); Mean Corpuscular HGB Conc 34 g/dl (31-36); Mean Corpuscular Hemoglobin 30 pg (27-31); Mean Corpuscular Volume 88 fL (80-94); Red Blood Count 4.08 10^6/ul (4.00-5.40); Red Cell Distribution Width 14 % (10.5-15); White Blood Count 7.1 10^3/ul (3.5-10.8)
[2018-01-27 07:24] LABS: EGFR Non-African American 79.5 (>60)
[2018-01-27 08:16] LABS: ABS Basophils 0.1 10^3/ul (0-0.2); ABS Eosinophils 0.3 10^3/ul (0-0.6); ABS Lymphocytes 1.4 10^3/ul (1.0-4.8); ABS Monocytes 0.9 10^3/ul (0-0.8); ABS Neutrophils 4.5 10^3/ul (1.5-7.7); ABS Nucleated RBC 0 10^3/ul; Eosinophil % 4.3 % (0-6); Lymphocyte % 19.4 % (25-47); Mean Platelet Volume 8.4 fL (7.4-10.4); Nucleated Red Blood Cells % 0; Platelet Count 96 10^3/ul (150-450)
[2018-01-27] MEDS ORDERED: Metoprolol Tartrate IV* 1 MG/ML 5 ML VIAL IV PRN (08:44)
[2018-01-27] MEDS ORDERED: Magnesium Sulfate 2 GM IV* 2 GM/50 ML BAG IVPB ONE (08:46)
[2018-01-27] MEDS: Finasteride TAB* 5 MG PO SCH (09:07)
[2018-01-27] MEDS: Allopurinol TAB* 300 MG PO SCH (09:08)
[2018-01-27] MEDS: Metoprolol Succinate XL TAB* 25 MG PO SCH (09:08)
[2018-01-27] MEDS: Clopidogrel TAB* 75 MG PO SCH (09:08)
[2018-01-27] MEDS: Oxybutynin XL TAB* 5 MG PO SCH (09:08)
[2018-01-27] MEDS: Potassium Chloride LIQUID* 20 MEQ PACKET PO SCH ×2 (09:09→20:58)
[2018-01-27] MEDS: Memantine TAB* 5 MG PO SCH ×2 (09:09→20:58)
[2018-01-27] MEDS: Tamsulosin CAP* 0.4 MG PO SCH (09:09)
[2018-01-27] MEDS: Carbidopa/Levodop 25/100 MG TAB(*) PO SCH ×3 (09:09→20:58)
[2018-01-27] MEDS: BRIMONIDINE BOTH EYES SCH ×2 (09:10→21:07)
[2018-01-27] MEDS: TIMOLOL BOTH EYES SCH ×2 (09:10→21:07)
[2018-01-27] MEDS: Atorvastatin* 20 MG TAB PO SCH (20:14)
[2018-01-27] MEDS: Apixaban* 5 MG TAB PO SCH (20:57)
[2018-01-27] MEDS: Latanoprost 0.005%* 2.5 ml BTL BOTH EYES SCH (21:07)
--- NOTE | 2018-01-27 23:55 | PN ---
Subjective Interval History: went into RVR this AM quickly relieved with IV metoprolol wants to proceed with anticoagulation cardiology was consulted asymptomatic. Family History: Findings - dad + cad Social History: Findings - no cig occ etoh walks with a walker Past Medical History: Findings - as above Objective Active Medications: Acetaminophen (Tylenol Tab*) 650 mg PO Q6H PRN PRN Reason: FEVER/PAIN Last Admin: 01/27/18 05:17 Dose: 650 mg Allopurinol (Zyloprim Tab*) 300 mg PO QAM [facility] Last Admin: 01/27/18 09:08 Dose: 300 mg Apixaban (Eliquis*) 5 mg PO BID [facility] Last Admin: 01/27/18 20:57 Dose: 5 mg Atorvastatin Calcium (Lipitor*) 20 mg PO QPM [facility] Last Admin: 01/27/18 20:14 Dose: 20 mg Brimonidine/Timolol (Combigan Ophth (Nf)) 1 drop BOTH EYES BID [facility] Last Admin: 01/27/18 21:07 Dose: 1 drop Carbidopa/Levodopa (Sinemet 25/100 Tab(*)) 1 tab PO TID [facility] Last Admin: 01/27/18 20:58 Dose: 1 tab Finasteride (Proscar Tab*) 5 mg PO QAM [facility]; Protocol Last Admin: 01/27/18 09:07 Dose: 5 mg Hydralazine HCl (Apresoline Iv*) 5 mg IV SLOW PU Q6H PRN PRN Reason: SBP >150 Latanoprost (Xalatan 0.005%*) 1 drop BOTH EYES BEDTIME [facility] Last Admin: 01/27/18 21:07 Dose: 1 drop Memantine (Namenda Tab*) 10 mg PO BID [facility] Last Admin: 01/27/18 20:58 Dose: 10 mg Metoprolol Succinate (Toprol Xl Tab*) 25 mg PO DAILY [facility] Last Admin: 01/27/18 09:08 Dose: 25 mg Metoprolol Tartrate (Lopressor Iv*) 5 mg IV Q5M PRN PRN Reason: HEART RATE/PULSE GREATER THAN: Last Admin: 01/27/18 08:56 Dose: 5 mg Oxybutynin Chloride (Ditropan Xl Tab*) 5 mg PO DAILY [facility] Last Admin: 01/27/18 09:08 Dose: 5 mg Potassium Chloride (Klor-Con Liquid*) 40 meq PO DAILY [facility] Last Admin: 01/27/18 09:09 Dose: 40 meq Potassium Chloride (Klor-Con Liquid*) 20 meq PO BEDTIME [facility] Last Admin: 01/27/18 20:58 Dose: 20 meq Tamsulosin HCl (Flomax Cap*) 0.4 mg PO DAILY [facility] Last Admin: 01/27/18 09:09 Dose: 0.4 mg Zolpidem Tartrate (Ambien Tab*) 2.5 mg PO BEDTIME PRN PRN Reason: INSOMNIA Vital Signs - 8 hr 01/27/18 01/27/18 16:49 20:00 Temperature 98.1 F 98.0 F Pulse Rate 67 85 Respiratory 16 16 Rate Blood Pressure 116/80 125/77 (mmHg) O2 Sat by Pulse 96 96 Oximetry Oxygen Devices in Use Now: None Appearance: NAD Eyes: No Scleral Icterus, PERRLA Neck: NL Appearance and Movements; NL JVP, Trachea Midline Cardiovascular: - - irregularly irregular no m/r/g Abdominal: NL Sounds; No Tenderness; No Distention, No Hepatosplenomegaly Extremities: - - right elbow in sling. hematoma. Skin: No Rash or Ulcers Neurological: Alert and Oriented x 3, NL Sensation, NL Muscle Strength and Tone Nutrition: Taking PO's Result Diagrams: 01/27/18 06:28 01/27/18 06:28 Additional Lab and Data: Laboratory Results - last 24 hr 01/27/18 01/27/18 06:28 06:28 WBC 7.1 RBC 4.08 Hgb 12.1 L Hct 36 L MCV 88 MCH 30 MCHC 34 RDW 14 Plt Count 96 L MPV 8.4 Neut % (Auto) 63.5 Lymph % (Auto) 19.4 L [place] % (Auto) 12.1 H Eos % (Auto) 4.3 Baso % (Auto) 0.7 Absolute Neuts (auto) 4.5 Absolute Lymphs (auto) 1.4 Absolute Monos (auto) 0.9 H Absolute Eos (auto) 0.3 Absolute Basos (auto) 0.1 Absolute Nucleated RBC 0 Nucleated RBC % 0 Sodium 139 Potassium 4.0 Chloride 110 Carbon Dioxide 23 Anion Gap 6 BUN 24 Creatinine 0.90 Est GFR ( Amer) 96.1 Est GFR (Non-Af Amer) 79.5 BUN/Creatinine Ratio 26.7 H Glucose 88 Calcium 8.3 L Magnesium 1.9 EKG Data: a flutter at rete of [address] t changes from prior Assess/Plan/Problems-Billing Assessment: 87 yr old male PMH CAD s/p CABG, AVS s/p porcine AV, falls and ?TIA so on plavix presenting with fall two days ago pt was sent in due to r elbow hematoma ---> pt was found to have new onset of a flutter head ct done on admisison neg of bleed #Aflutter - appreciate cardiology recs --- plan to place linq device in AM as there is some suspcion that his falls 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 Dr. Wilhelm had discussed PPM placement even prior to these current events as noted to have some bradycardia reportedly - metoprolol succinate 25mg with 5mg IV prn for RVR if pressure preserved - ECHO with EF 55-60%, severe LA dilatation, moderate MVR - eliquis started, stop plavix #right radial head compression fracture - appreciate ortho recs - sling, non weight bearing RUE - follow up with Dr. Santiago as outpatient PT/OT: plan to [facility] tomorrow. CODE: FULL Status and Disposition: medicine inpatient.
--- NOTE | 2018-01-28 04:58 | CONS ---
CC: Dr. Trevor Ku, [facility]; Dr. Wilhelm; Hospitalist Service * CARDIOLOGY CONSULTATION: DATE OF CONSULT: 01/27/18 REASON FOR CONSULT: Fall and new atrial fibrillation. CHIEF COMPLAINT: The patient's chief complaint is falling. HISTORY OF PRESENT ILLNESS: Mr. Hoffman is an 87-year-old patient followed by my partner, Dr. Terry Wilhelm, with a history of aortic valve replacement and coronary artery disease. The patient also has a history of TIAs, falls, and Dr. Wilhelm notes concern for bradycardia and sick sinus syndrome on his office note in March 2017. The patient states he was doing very well, was visiting his at [facility] in one of the assisted facilities. He was [place] his [place] and thinks he suffered a mechanical fall. He broke his right arm. [facility] felt the patient should come to the hospital and he was found to be in atrial fibrillation with a rapid ventricular rate on arrival. The patient states he was completely unaware of the AFib or the tachycardia. He had no palpitations, no dizziness, no exercise intolerance, thought he was doing well. Since admission, the patient has undergone the addition of rate-lowering agent and his ARB was held. Today, the patient was seen in the presence of his and daughter and he is without complaints currently. The patient denies any recent fevers, chills. PAST MEDICAL HISTORY: 1. Aortic insufficiency, status post aortic valve replacement and bypass surgery in 2010 ([facility]), Polina-Melendez #27 porcine valve, saphenous vein graft to the LAD, OM1 and OM2. 2. Visual impairment. 3. TIA, 2013. 4. Atrial fibrillation (2011). 5. Hypertension. 6. Parkinson's. 7. Vertebral compression fracture. 8. BPH, status post TURP, 1988. MEDICATIONS: Outpatient medications include: 1. Candesartan 4 mg a day. 2. Lipitor 20 mg a day. 3. Flomax 0.4 mg a day. 4. Plavix 75 mg a day. 5. Potassium 20 mEq a day. 6. Carbidopa/levodopa 25/100 one tab a day. 7. Compression stockings, Jobst stockings. 8. Avodart 0.5 mg a day. 9. Latanoprost ophthalmic drops. 10. Tylenol p.r.n. 11. Brimonidine tartrate. 12. Allopurinol 300 mg a day. 13. Timoptic 0.25%. 14. Memantine HCl 5 mg. The patient's current inpatient medications include: 1. Tylenol. 2. Allopurinol. 3. Eliquis 5 mg b.i.d., started tonight. 4. Lipitor 20 mg a day. 5. Combigan ophthalmic drops. 6. Sinemet 25/100 one tab t.i.d. 7. Proscar 5 mg a day. 8. Hydralazine p.r.n. 9. Xalatan ophthalmic drop. 11. Namenda 10 mg b.i.d. 12. Toprol-XL 25 mg a day. 13. Ditropan 5 mg a day. 14. Potassium chloride 60 mEq a day. 15. Flomax 0.4 mg a day. 16. Ambien. ALLERGIES: He is allergic to SULFA. FAMILY HISTORY: Father had a history of coronary artery disease and Alzheimer' s. Mother had a history of stroke. SOCIAL HISTORY: The patient is . Lives with his . 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 Supportive daughter was present. He smoked briefly, stopped in the 1960s. Rare alcohol but he and his family confirmed none in 3 or 4 months. No history of recreational drug use. REVIEW OF SYSTEMS: Negative for orthopnea, PND, chest pain, change in exercise capacity. No hematuria, dysuria, or coughing. All other 14-point review of systems was negative. PHYSICAL EXAM: The patient is 5 feet 9 inches, weighs 140 pounds with a BMI of 20. Blood pressure 125/77, pulse is 85 and irregular, respiratory rate 16, oxygen saturation on room air is 96%, and he is afebrile. General Appearance: Tall, lean gentleman sitting in bed, in no acute distress. Psychologically, pleasant and cooperative. Pretty good historian. Neurologically, awake, alert, and oriented to person and place. He states he will sometimes be looking straight ahead and thinks he is looking at the floor, but appropriate while I am seeing him. Speech is articulate. Comprehension is good. Follows commands well in bed. Skin: Warm and dry. No cyanosis or rashes. He is thin, verging on cachectic. HEENT: Mucous membranes moist. Neck: Without thyromegaly or increased JVP. Good carotid pulses without appreciable bruit. Breath sounds diminished throughout but no wheezing, rales, or rhonchi, distant. Coronary: S1 and S2, irregularly irregular. Very soft early peaking systolic murmur heard in the right upper sternal border. Midline scars is well healed. Abdomen : Active bowel sounds. Soft, nontender. Lower extremities are free of edema and warm. DIAGNOSTIC STUDIES/LAB DATA: ECG on admission on 01/26/18, shows atrial fibrillation with ventricular rate of 104 beats a minute, QRS axis is 0, normal intraventricular conduction times and unremarkable ST segments. Compared to the last EKG in the outpatient from 04/09/17, he was in normal sinus rhythm, 70 beats a minute, QRS axis +30. White count 7.1, hematocrit 36, platelets 96. INR 1.05, PTT 28. Sodium 139, potassium 4.0, chloride 110, bicarb 23, BUN 24, creatinine 0.9, magnesium 1.9. Total bili 1.1, AST 16, ALT 0.3. TSH 1.67. Urinalysis: Trace ketones, otherwise unremarkable. Echocardiogram from 01/26/18, shows an ejection fraction of 55% to 60%, moderate hypertrophy, bioprosthetic aortic valve with normal function, moderate mitral insufficiency, trace tricuspid insufficiency, and mild dilatation of the ascending aorta. IMPRESSION AND RECOMMENDATIONS: In summary, Josh Hoffman is an 87-year-old male, who had a fall in his cottage at [facility], possibly mechanical but uncertain , found in atrial fibrillation of uncertain duration as he is asymptomatic but new in 2018. He has past medical history of falls and has multiple potential risks for falls. For the atrial fibrillation, I have recommended anticoagulation and had extensive discussions with the patient, his , and daughter about Coumadin versus NOAC. We discussed this in the setting of not only his atrial fibrillation, but bioprosthetic aortic valve and mitral insufficiency, and after discussion we decided to start him on Eliquis. The patient and family are aware that with his fall there is some increased risk of injury and bleeding with anticoagulation, but there is a significant risk of stroke if not given. Because of his age and past history of transient ischemic attacks, we are going to stop the Plavix and replace with Eliquis as opposed to adding Eliquis. We discussed rate control for now and potentially in the future cardioversion but as he is asymptomatic with preserved ventricular function, I am not in a edwards for cardioversion. As Dr. Wilhelm's notes have showing concern for bradycardia and the patient has recurrent falls, we discussed monitoring and after discussion with the patient and the hospitalist, a LINQ was felt to be more likely to have higher yield if he had symptomatic tachy or bradyarrhythmia. I agree with the rate control. I have recommended a chest x-ray because he does not have a significant smoking history, the quite abnormal lung exam and lung problems might contribute to his atrial fibrillation. The natural history of atrial fibrillation and risks was discussed with the patient and family as well as stroke risk. Additional recommendations will be made pending his response to the above medications and data obtained once his LINQ event monitor is implanted. Thank you for allowing me to assist on this nice gentleman's care. [id number]/[facility] #: [id number] AMI
[2018-01-28 07:09] LABS: ABS Basophils 0.1 10^3/ul (0-0.2); ABS Eosinophils 0.3 10^3/ul (0-0.6); ABS Lymphocytes 1.4 10^3/ul (1.0-4.8); ABS Monocytes 0.9 10^3/ul (0-0.8); ABS Neutrophils 4.9 10^3/ul (1.5-7.7); ABS Nucleated RBC 0 10^3/ul; Eosinophil % 3.5 % (0-6); Hematocrit 38 % (42-52); Hemoglobin 12.6 g/dl (14.0-18.0); Lymphocyte % 18.3 % (25-47); Mean Corpuscular HGB Conc 34 g/dl (31-36); Mean Corpuscular Hemoglobin 30 pg (27-31); Mean Corpuscular Volume 88 fL (80-94); Mean Platelet Volume 8.3 fL (7.4-10.4); Nucleated Red Blood Cells % 0; Platelet Count 103 10^3/ul (150-450); Red Blood Count 4.26 10^6/ul (4.00-5.40); Red Cell Distribution Width 14 % (10.5-15); White Blood Count 7.4 10^3/ul (3.5-10.8)
[2018-01-28] MEDS: Finasteride TAB* 5 MG PO SCH (09:10)
[2018-01-28] MEDS: Metoprolol Succinate XL TAB* 25 MG PO SCH (09:11)
[2018-01-28] MEDS: Carbidopa/Levodop 25/100 MG TAB(*) PO SCH (09:11)
[2018-01-28] MEDS: Allopurinol TAB* 300 MG PO SCH (09:11)
[2018-01-28] MEDS: Oxybutynin XL TAB* 5 MG PO SCH (09:11)
[2018-01-28] MEDS ORDERED: Lidocaine 1% INJ* 10 MG/ML 30 ML SDV ONE (09:24)
[2018-01-28] MEDS ORDERED: Lidocain 1% EPI 1:100,000 * 30 ML MDV ONE (09:49)
[2018-01-28 12:04] VITALS: BP 148/100
--- NOTE | 2018-01-28 12:29 | DS ---
CC: Dr. Santiago * DATE OF ADMISSION: 01/26/2018. DATE OF DISCHARGE: 01/28/2018. ADMITTING PROVIDING: Dr. Mandie Castellanos. PRIMARY CARE PHYSICIAN: Dr. Ku. PATIENT'S GLAZE MIXER: Dr. Wilhelm. CONSULTING ORTHOPEDIC SURGEON: Dr. House. Will be following up with Dr. Santiago as an outpatient. OUTPATIENT NEUROLOGIST: Dr. Macias. CONSULTING INPATIENT GLAZE MIXER: Dr. Ricketts. CHIEF COMPLAINT: Right arm swelling and bruising after fall two days prior. 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 HISTORY OF PRESENT ILLNESS AND HOSPITAL COURSE: Josh Hoffman is an 87-year- old male with a past medical history of mild cognitive impairment; coronary artery disease, status post CABG 2010 and aortic insufficiency, status post porcine aortic valve replacement 2010, both at [facility]; concern for a TIA 2013; Parkinson's- like symptoms, following with Dr. Macias; hypertension; BPH , status post TURP; visual impairment; and vertebral compression fracture. Please see the history and physical from Dr. Mandie Castellanos for full details. He complained that he had fallen two days prior to admission and that his bruised right elbow was bothering him, and the staff at [facility] sent him to the emergency room. He was found to be in rapid A-fib and flutter with a rate of 120s, eventually up to 140s. He received Diltiazem 10 mg which improved his rates. He was referred to the Hospitalists Service for admission. He had an x-ray of his right elbow which demonstrated questionable impacted fracture of the right radial head and small right elbow joint effusion, along with innumerable well-circumscribed bony densities overlying the right elbow joint space and appearance consistent with synovial chondromatosis. Of note, he had had an x- ray the prior day on January 25 as an outpatient at [facility]. At that time, there was noted soft tissue swelling and no fracture was seen, along with suggestions of the synovial chondromatosis. He had reduced passive and active range of motion of the right elbow and Orthopedic service was consulted with Dr. House who recommended nonweightbearing status and a sling , and to follow-up with Dr. Santiago. No urgent operative management at this time. His rates were fairly well-controlled, but on hospital day two morning of, he did go back into a rapid RVR in the 130s that was quickly broke with [address] Ricketts was consulted and recommended, after review of Dr. Wilhelm 's outpatient notes with a concern for potential bradycardia and maybe tachybrady syndrome, that the patient be started on anticoagulation and have an implantable LINQ device for further characterizations of his rate. Recommended rate control with beta blockers and started Eliquis 5 mg b.i.d. for anticoagulation given his history of hypertension, coronary artery disease, and age. The patient will follow-up with Physical Therapy who recommended to get further physical therapy at [facility]. He should follow-up with Dr. Santiago, Dr. Wilhelm, and Dr. Ku. DISCHARGE MEDICATIONS: 1. Tylenol 625 mg p.o. q.6 hours prn. 2. Allopurinol 150 mg p.o. q.a.m. 3. Eliquis 5 mg p.o. b.i.d. (new). 4. Atorvastatin 20 mg p.o. daily. 5. Brimonidine/Timolol 0.2/0.5% one drop both eyes b.i.d. 6. Carbidopa/Levodopa one tab p.o. t.i.d. 7. Ditropan 5 mg p.o. daily. 8. Avodart (Dutasteride) 0.5 mg p.o. q.a.m. 9. Latanoprost 0.005% one drop both eyes at bedtime. 10. Memantine 10 mg p.o. b.i.d. 11. Metoprolol Succinate 25 mg p.o. daily (new). 12. Tamsulosin 0.4 mg p.o. daily. 13. Ambien 30 mg p.o. at bedtime prn. 14. Candesartan 4 mg p.o. daily. 15. Potassium Chloride 20 mEq p.o. daily. DISCHARGE DIET: Heart-healthy, unchanged. ACTIVITY: Nonweightbearing on the right upper extremity until follow-up with Dr. Santiago. FOLLOW-UP: He is to follow-up with Dr. Ku within seven days, with Dr. Wilhelm within two weeks, and with Dr. Santiago within two weeks. He should have his LINQ device interrogated. Consideration for cardioversion on the Eliquis if still in A- fib. Also, may need a permanent pacemaker if he does have tachybrady syndrome. He did not have any episodes of bradycardia here in the hospital, although sometimes the pulse oximetry used by the does inaccurately record his heart rates. TIME SPENT ON THIS DISCHARGE: 45 minutes. [id number]/[facility] #: [id number] AMI
[2018-01-28] MEDS: Potassium Chloride LIQUID* 20 MEQ PACKET PO SCH (13:09)
[2018-01-28] MEDS: Tamsulosin CAP* 0.4 MG PO SCH (13:11)
[2018-01-28] MEDS: Apixaban* 5 MG TAB PO SCH (13:11)
[2018-01-28] MEDS: BRIMONIDINE BOTH EYES SCH (13:11)
[2018-01-28] MEDS: TIMOLOL BOTH EYES SCH (13:11)
[2018-01-28] MEDS: Memantine TAB* 5 MG PO SCH (13:16)
--- NOTE | 2018-01-29 04:00 | OP ---
CC: Dr. Trevor Ku; Terry Wilhelm MD * LINQ IMPLANTABLE EVENT MONITOR IMPLANT: DATE OF OPERATION: 01/28/18 - ROOM #[id number] DATE OF : [birth year] SURGEON: Daria Ricketts MD PRE-OP DIAGNOSES: 1. Syncope. 2. Paroxysmal atrial fibrillation. 3. Transient ischemic attack. POST-OP DIAGNOSES: 1. Syncope. 2. Paroxysmal atrial fibrillation. 3. Transient ischemic attack. OPERATIVE PROCEDURE: LINQ implantable event monitor implant. DESCRIPTION OF PROCEDURE: The indications, risks and benefits of the procedure were discussed with the patient in the presence of his daughter and and they were amenable to proceeding. The left fourth intercostal space was prepped and draped in the usual sterile fashion and a time-out procedure was called. Following this, the patient received 4 cc on 1% lidocaine with epinephrine in the left fourth intercostal space just lateral to the sternum. Following this, using the blade in the kit, a small manuel was fashioned and then using the tunneling device in the kit a tunnel was made at 45 degrees inferolaterally. Using the device in the kit, the device was slid into the tunnel. Sensing was checked and found to be excellent at 0.63 mV. Programming was as follows. It will detect 3-second pauses or longer, bradycardic episodes of 30 beats a minute or slower for 4 beats, and tachycardic episodes of 133 beats a minute for 16 beats or greater. The patient was hemodynamically stable throughout the procedure and during the recovery period and there were no complications. Estimated blood loss less than 1 cc. [id number]/[facility] #: [id number] [facility]
== END 2018-01-28 14:31 | DRG 261 ==
LOC: ED 03:06 → MEDTELE 05:25 → OBSVTOIN 01-27 23:57
PROVIDERS: ADMIT Internal Medicine; ATTEND Internal Medicine
PROC: 0JH602Z Insertion of Monitoring Device into Chest Subcutaneous Tissue and Fascia, Open Approach (ICD-10-PCS; principal; 2018-01-28 09:30)
DX: I49.5 Sick sinus syndrome (principal); I48.92 Unspecified atrial flutter; G45.9 Transient cerebral ischemic attack, unspecified; S52.124A Nondisplaced fracture of head of right radius, initial encounter for closed fracture; W18.39XA Other fall on same level, initial encounter; E78.5 Hyperlipidemia, unspecified; I25.10 Atherosclerotic heart disease of native coronary artery without angina pectoris; I10 Essential (primary) hypertension; N40.0 Benign prostatic hyperplasia without lower urinary tract symptoms; F32.9 Major depressive disorder, single episode, unspecified; Z96.651 Presence of right artificial knee joint; G20 Parkinson's disease; I34.0 Nonrheumatic mitral (valve) insufficiency; R26.81 Unsteadiness on feet; M25.421 Effusion, right elbow; I48.0 Paroxysmal atrial fibrillation; G31.84 Mild cognitive impairment of uncertain or unknown etiology; I16.0 Hypertensive urgency; F03.90 Unspecified dementia, unspecified severity, without behavioral disturbance, psychotic disturbance, mood disturbance, and anxiety; H54.7 Unspecified visual loss; H40.9 Unspecified glaucoma; R29.6 Repeated falls; D48.0 Neoplasm of uncertain behavior of bone and articular cartilage; Z88.2 Allergy status to sulfonamides; Z86.73 Personal history of transient ischemic attack (TIA), and cerebral infarction without residual deficits; Z95.1 Presence of aortocoronary bypass graft; Z98.42 Cataract extraction status, left eye; Z98.41 Cataract extraction status, right eye; Z80.0 Family history of malignant neoplasm of digestive organs; Z82.49 Family history of ischemic heart disease and other diseases of the circulatory system; Z72.89 Other problems related to lifestyle; Z87.891 Personal history of nicotine dependence; Z82.3 Family history of stroke; Z95.3 Presence of xenogenic heart valve; Z79.01 Long term (current) use of anticoagulants; Y92.009 Unspecified place in unspecified non-institutional (private) residence as the place of occurrence of the external cause; Z91.81 History of falling; I25.2 Old myocardial infarction
CPT/HCPCS: 33282; 36415; 70450; 71046; 80048; 80053; 81003; 82550; 83735; 84443; 84484; 85025; 85060; 85610; 85730; 93005; 93306; 99284; A9270-GY; C1764; G0378; G8978-GP-CJ; G8979-GP-CI; G8987-GO-CJ; G8988-GO-CI; J3475; J3490

== ENCOUNTER 2018-03-09 10:29 | Inpatient (IN) | payer MEDICARE, OTHER ==
--- NOTE | 2018-03-09 10:40 | ED ---
Complex/Multi-Sys Presentation - HPI Summary HPI Summary: The pt is an 87 y/o male presenting [place] [facility] c/o weakness since 2 days ago. He notes a fall with head strike yesterday night, new onset occasional incontinence , increasing forgetfulness, LE swelling and SOB but denies WEBSTER, head injury, fever, abd pain, and CP. He lives in [facility] (assisted living) with his . Home Medications Medication Instructions Recorded Confirmed Type Allopurinol TAB* [Zyloprim 300 MG 150 mg PO QAM 09/07/12 03/09/18 History TAB*] Latanoprost 0.005%* [Xalatan 1 drop BOTH EYES BEDTIME 09/07/12 03/09/18 History 0.005%*] Atorvastatin* [Lipitor 20 MG*] 20 mg PO QPM 08/08/13 03/09/18 History Tamsulosin CAP* [Flomax CAP*] 0.4 mg PO DAILY 09/13/16 03/09/18 History Acetaminophen TAB* [Tylenol TAB*] 625 mg PO Q6H PRN 10/04/17 03/09/18 History Carbidopa/Levodop 25/100 MG(*) 1 tab PO TID 10/04/17 03/09/18 History [Sinemet 25/100 TAB(*)] Memantine HCl 10 mg PO BID 01/26/18 03/09/18 History Apixaban* [Eliquis*] 5 mg PO BID #60 tab 01/28/18 03/09/18 Rx Metoprolol Succinate XL TAB* 25 mg PO DAILY #30 tab.xl 01/28/18 03/09/18 Rx [Toprol XL TAB*] Acetaminophen/Diphenhydramine 2 tab PO BEDTIME 03/09/18 03/09/18 History [Acetaminophen/Diphenhydra 25-500 mg] Bisacodyl SUPP* [Dulcolax Supp*] 10 mg UT DAILY PRN 03/09/18 03/09/18 History Brimonid/Timolol 0.2/0.5%(NF) 1 drop BOTH EYES BID 03/09/18 03/09/18 History [Combigan 0.2/0.5% (NF)] Candesartan Cilexetil [Atacand] 4 mg PO DAILY 03/09/18 03/09/18 History Dutasteride (NF) [Avodart (NF)] 0.5 mg PO DAILY 03/09/18 03/09/18 History Magnesium Hydroxide LIQ* [Milk of 30 ml PO DAILY PRN 03/09/18 03/09/18 History Magnesia LIQ*] Metoprolol Succinate XL TAB* 12.5 mg PO BEDTIME 03/09/18 03/09/18 History [Toprol XL TAB*] Oxybutynin TAB* [Ditropan TAB*] 5 mg PO DAILY 03/09/18 03/09/18 History Potassium Chlor TAB* [Klor Con ER 20 meq PO BID 03/09/18 03/09/18 History TAB*] Ramelteon (NF) [Rozerem (NF)] 8 mg PO BEDTIME 03/09/18 03/09/18 History Zolpidem TAB* [Ambien TAB*] 5 mg PO BEDTIME PRN 03/09/18 03/09/18 History - History Of Current Complaint Chief Complaint: EDWeakness Time Seen by Provider: 03/09/18 10:37 Hx Obtained From: Patient Onset/Duration: Gradual Onset, Lasting Days - 2 dasy, Still Present Timing: Constant Aggravating Factor(s): Nothing Alleviating Factor(s): Nothing Associated Signs And Symptoms: Positive: Edema. Negative: Headache, SOB, Chest Pain - Allergies/Home Medications Allergies/Adverse Reactions: Allergies Allergy/AdvReac Type Severity Reaction Status Date / Time Sulfa (Sulfonamide Allergy Unknown Verified 03/09/18 10:47 Antibiotics) Reaction Details Home Medications: Home Medications Acetaminophen/Diphenhydramine [Acetaminophen/Diphenhydra 25-500 mg] 2 tab PO BEDTIME 03/09/18 [History Confirmed 03/09/18] Bisacodyl SUPP* [Dulcolax Supp*] 10 mg UT DAILY PRN 03/09/18 [History Confirmed 03/09/18] Brimonid/Timolol 0.2/0.5%(NF) [Combigan 0.2/0.5% (NF)] 1 drop BOTH EYES BID [History Confirmed 03/09/18] Candesartan Cilexetil [Atacand] 4 mg PO DAILY 03/09/18 [History Confirmed ] Dutasteride (NF) [Avodart (NF)] 0.5 mg PO DAILY 03/09/18 [History Confirmed ] Magnesium Hydroxide LIQ* [Milk of Magnesia LIQ*] 30 ml PO DAILY PRN 03/09/18 [ History Confirmed 03/09/18] Metoprolol Succinate XL TAB* [Toprol XL TAB*] 12.5 mg PO BEDTIME 03/09/18 [ History Confirmed 03/09/18] Oxybutynin TAB* [Ditropan TAB*] 5 mg PO DAILY 03/09/18 [History Confirmed ] Potassium Chlor TAB* [Klor Con ER TAB*] 20 meq PO BID 03/09/18 [History Confirmed 03/09/18] Ramelteon (NF) [Rozerem (NF)] 8 mg PO BEDTIME 03/09/18 [History Confirmed ] Zolpidem TAB* [Ambien TAB*] 5 mg PO BEDTIME PRN 03/09/18 [History Confirmed ] PMH/Surg Hx/FS Hx/Imm Hx Previously Healthy: No Endocrine/Hematology History: Reports: Hx Anticoagulant Therapy - plavix, Other Endocrine/Hematological Disorders - hyperlipidemia Denies: Hx Diabetes, Hx Thyroid Disease Cardiovascular History: Reports: Hx Cardiomegaly, 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 KAMARA- [employer] Denies: Hx Myocardial Infarction, Hx Pacemaker/ICD Respiratory History: Denies: Hx Asthma, Hx Chronic Obstructive Pulmonary Disease (COPD) GI History: Denies: Hx Ulcer History: Reports: Hx Benign Prostatic Hyperplasia Denies: Hx Dialysis, Hx Renal Disease Comment Only: Other Problems/Disorders - urinary surgery unable to specify ; urinary incontinence with Tyson, TURP Musculoskeletal History: Reports: Hx Arthritis - R knee, Hx Gout, Other Musculoskeletal History - INJURY TO LOWER BACK VERTABRAE ON THE RIGHT SIDE - DID PHYSICAL THERAPY FOR Sensory History: Reports: Hx Cataracts, Hx Contacts or Glasses, Hx Glaucoma, Hx Hearing Aid Denies: Hx Legally Blind, Hx Deafness, Hx Hearing Problem Opthamlomology History: Reports: Hx Cataracts, Hx Contacts or Glasses, Hx Glaucoma Denies: Hx Legally Blind Neurological History: Reports: Hx Transient Ischemic Attacks (TIA) - 04/2013, Other Neuro Impairments/Disorders - Parkinsonian symptoms Psychiatric History: Reports: Hx Depression Denies: Hx Panic Disorder - Cancer History Cancer Type, Location and Year: None reported - Surgical History Surgery Procedure, Year, and Place: Triple bypass 2010 with Porcine tissue heart valve(pig valve safe upto 3Tmagnet)-[facility]. Right knee replacement - [facility]. TURP. tonsils. appendix. bilater cataract Hx Anesthesia Reactions: No - Immunization History Date of Tetanus Vaccine: Pt unsure Date of Influenza Vaccine: 2012 Infectious Disease History: No Infectious Disease History: Denies: Hx Clostridium Difficile, Hx Hepatitis, Hx Human Immunodeficiency Virus (HIV), Hx of Known/Suspected MRSA, Hx Shingles, Hx Tuberculosis, Hx Known/ Suspected VRE, Hx Known/Suspected VRSA, History Other Infectious Disease, Traveled Outside the [place] in Last 30 Days - Family History Known Family History: Positive: Cardiac Disease, Other - Colon CA - Social History Lives: Assisted Living - [facility] Alcohol Use: None Alcohol Amount: 3-4 OUNCES DAILY Hx Substance Use: No Substance Use Type: Reports: None Hx Tobacco Use: Yes - Cigarillos Smoking Status (MU): Former Smoker Type: Cigars Amount Used/How Often: X 2 YEARS Have You Smoked in the Last Year: No Review of Systems Constitutional: Negative - Head trauma , Other - Fall with head strike, increasing forgetfulness Negative: Fever Negative: Chest Pain Positive: Shortness Of Breath Negative: Abdominal Pain Positive: incontinence Positive: Edema - Pedal Positive: Weakness. Negative: Headache All Other Systems Reviewed And Are Negative: Yes Physical Exam - Summary Physical Exam Summary: Appearance: Well appearing, no pain distress Skin: warm, dry mucous membranes, reflects adequate perfusion Head/face: normal Eyes: EOMI, NELL ENT: normal Neck: supple, non-tender Respiratory: b/s decreased rt base, rales present Cardiovascular: RRR, pulses symmetrical Abdomen: non-tender, soft Musculoskeletal: bilateral pedal edema, strength/ROM intact Neuro: normal, sensory motor intact, A&Ox3 GCS: 15 Triage Information Reviewed: Yes Vital Signs On Initial Exam: Initial Vitals Temp Pulse Resp BP Pulse Ox 97 F 81 17 147/95 95 03/09/18 10:35 03/09/18 10:35 03/09/18 10:35 03/09/18 10:35 03/09/18 10:35 Vital Signs Reviewed: Yes Diagnostics - Vital Signs Vital Signs Temp Pulse Resp BP Pulse Ox 03/09/18 10:35 97 F 81 17 147/95 95 - Laboratory Result Diagrams: 03/09/18 11:02 03/09/18 11:02 Lab Statement: Any lab studies that have been ordered have been reviewed, and results considered in the medical decision making process. - Radiology CXR Radiology Interpretation Completed By: Radiologist Summary of Radiographic Findings: IMPRESSION: Chest x-ray findings are most consistent with cardiogenic pulmonary edema with bibasilar pleural effusions. The ED physician reviewed this radiology report. - CT Brain CT CT Interpretation Completed By: Radiologist Summary of CT Findings: IMPRESSION: Stable chronic findings as described above without CT apparent acute intracranial abnormality. The ED physician reviewed this radiology report. - EKG 11:05 Cardiac Rate: NL - 65 bpm EKG Rhythm: Sinus Rhythm Summary of EKG Findings: No acute changes Re-Evaluation - Re-Evaluation First Eval Re-Evaluation Time: 12:51 Change: Improved - I discussed the results and dispo plans with the pt. Complex Multi-Symp Course/Dx Course Of Treatment: An 87 year-old M presents to the ED with a CC of weakness since 2 days ago. He notes a fall with head strike yesterday night, new onset occasional incontinence, increasing forgetfulness, bilateral pedal edema, and SOB but denies WEBSTER, head injury, fever, abd pain, and CP. A physical exam revealed dry mucous membranes and bilateral pedal edema. CXR findings are most consistent with cardiogenic pulmonary edema with bibasilar pleural effusions. A brain CT reveals stable chronic findings without apparent acute intracranial abnormality. An EKG is unremarkable. In the ED course, pt was given Furosemide 40 mg IV which improved the symptoms. I discussed the care of the ot with Dr. Dubon-Hospitalist who agreed to admit the pt. Patient will be admitted with a final Dx of CHF, Pleural effusion, Weakness and Dizziness. Pt is agreeable with this plan. Allergies noted. - Diagnoses Differential Diagnoses/HQI/PQRI: CVA, Metabolic Abnormality, Sepsis, Other - chf Provider Diagnoses: CHF (congestive heart failure), Pleural effusion, Weakness, Dizziness - Physician Notifications Discussed Care Of Patient With: Bella Dubon - Hospitalist Time Discussed With Above Provider: 12:28 Instructed by Provider To: Admit As Inpatient Discharge - Sign-Out/Discharge Documenting (check all that apply): Patient Departure - Admit - Discharge Plan Condition: Stable Disposition: ADMITTED TO [facility] Referrals: Trevor Ku MD [Primary Care Provider] - - Billing Disposition and Condition Condition: STABLE Disposition: Admitted to [facility] - Attestation Statements Document Initiated by Violetaibe: Yes Documenting Scribe: Elisabeth Holland Provider For Whom Sherly is Documenting (Include Credential): Dr. Nahum Siu MD Scribe Attestation: Elisabeth Blevins , scribed for Dr. Nahum Siu MD on 03/09/18 at 1425. Scribe Documentation Reviewed: Yes Provider Attestation: The documentation as recorded by the Elisabeth villavicencio accurately reflects the service I personally performed and the decisions made by me, Dr. Nahum Siu MD Status of Scribe Document: Viewed
[2018-03-09 11:09] LABS: Urine Appearance Clear; Urine Bilirubin Negative (Negative); Urine Blood Negative (Negative); Urine Color Yellow; Urine Glucose Negative (Negative); Urine Ketones Trace (Negative); Urine Nitrite Negative (Negative); Urine Protein Negative (Negative); Urine Specific Gravity 1.009 (1.010-1.030); Urine Urobilinogen Negative (Negative)
[2018-03-09 11:16] LABS: ABS Basophils 0.1 10^3/ul (0-0.2); ABS Eosinophils 0.1 10^3/ul (0-0.6); ABS Lymphocytes 1.1 10^3/ul (1.0-4.8); ABS Monocytes 0.7 10^3/ul (0-0.8); ABS Neutrophils 7.7 10^3/ul (1.5-7.7); ABS Nucleated RBC 0 10^3/ul; Eosinophil % 1.1 %; Hematocrit 45 % (42-52); Hemoglobin 14.7 g/dl (14.0-18.0); Mean Corpuscular HGB Conc 33 g/dl (31-36); Mean Corpuscular Hemoglobin 30 pg (27-31); Mean Corpuscular Volume 90 fL (80-94); Mean Platelet Volume 7.8 fL (7.4-10.4); Nucleated Red Blood Cells % 0; Platelet Count 133 10^3/ul (150-450); Red Blood Count 4.95 10^6/ul (4.00-5.40); Red Cell Distribution Width 14 % (10.5-15); White Blood Count 9.6 10^3/ul (3.5-10.8)
[2018-03-09 11:23] LABS: INR 1.66 (0.77-1.02)
[2018-03-09 11:24] LABS: Activated Partial Thrombo Time 34.8 seconds (26.0-36.3)
[2018-03-09 11:33] LABS: Albumin 3.9 g/dL (3.2-5.2); Albumin/Globulin Ratio 1.3 (1-3); BUN/Creatinine Ratio 24.4 (8-20); Calcium 9.3 mg/dL (8.6-10.3); EGFR Non-African American 83.7 (>60); Globulin 2.9 g/dL (2-4); Magnesium 1.8 mg/dL (1.9-2.7); Potassium 3.9 mmol/L (3.5-5.0); Total Bilirubin 2.2 mg/dL (0.2-1.0); Total Protein 6.8 g/dL (6.4-8.9)
[2018-03-09] MEDS ORDERED: Furosemide IV* 10 MG/ML VIAL (40 MG) IV ONE (12:24)
[2018-03-09] MEDS ORDERED: Magnesium Hydroxide LIQ* 30 ML UDC PO PRN (14:06)
[2018-03-09] MEDS ORDERED: Acetaminophen TAB* 325 MG PO PRN (14:06)
[2018-03-09] MEDS ORDERED: Albuterol/Ipratropium NEB.SOL* Albuterol 2.5 MG/Ipratropium 0.5 MG 3 ML INH PRN (14:06)
[2018-03-09] MEDS ORDERED: Bisacodyl SUPP* 10 MG SUPP PR PRN (14:06)
[2018-03-09] MEDS ORDERED: Magnesium Sulfate 1 GM IV* 1 GM/100 ML BAG IV ONE (15:34)
--- NOTE | 2018-03-09 18:41 | HP ---
CC: Dr. uK; Dr. Wilhelm * HISTORY AND PHYSICAL: DATE OF ADMISSION: 03/09/18 PROVIDER: Veronica Stephen NP PRIMARY CARE PHYSICIAN: Dr. Ku. SHAREPOINT SPECIALIST: Dr. Wilhelm. ATTENDING PHYSICIAN: Dr. Dubon * (dictated by Veronica Stephen NP). CHIEF COMPLAINT: Weakness, fall with head strike, increased lower extremity edema, and shortness of breath. HISTORY OF PRESENT ILLNESS: Mr. Hoffman is an 87-year-old male with a past medical history significant for AFib, on Eliquis; hypertension; a bioprosthetic aortic valve; moderate mitral valve regurgitation; Parkinson's; and BPH, who presented to the ED from [facility] after sustaining a mechanical fall last night. The patient reports increased weakness over the past few days as well as increased lower extremity edema and episodic shortness of breath that is worse when lying down. These symptoms have gotten worse over the past 2 days. He also reports recent increase in urinary incontinence over the past few days and his reports some mental status changes including increased confusion. In the ED the patient did have a brain CT, which showed no acute intracranial abnormalities. He was initially found to be hypoxic to 80% on room air and was given 2 L of oxygen with nasal cannula, which improved his O2 sat to 96%. He did have an ABG, which showed a pH of 7.47 and a pO2 of 68 with an O2 sat of 94.7%. He had a chest x-ray, which showed cardiogenic pulmonary edema with bibasilar pleural effusions. On exam today, the patient denied any cough, fever, chest pain, headache, nausea, vomiting, or dysuria. He did have rales bilaterally as well as 1+ pitting edema bilaterally to his knees. Of note , the patient was afebrile without leukocytosis. The hospitalist team was asked to admit Mr. Hoffman for acute hypoxic respiratory failure likely secondary to acute on chronic CHF exacerbation. PAST MEDICAL HISTORY: AFib, on Eliquis; hypertension; bioprosthetic aortic valve; mitral valve regurgitation; gout; Parkinson's; TIA; BPH. PAST SURGICAL HISTORY: Triple bypass in 2010 with porcine tissue heart valve, right knee replacement, TURP, tonsillectomy, appendectomy, and bilateral cataracts. HOME MEDICATIONS: Include: 1. Ambien 5 mg p.o. at bedtime p.r.n. 2. Milk of magnesia 30 mL p.o. daily p.r.n. 3. Ramelteon 8 mg p.o. at bedtime. 4. Acetaminophen/diphenhydramine 2 tabs p.o. at bedtime. 5. Tylenol 625 mg p.o. q.6 hours p.r.n. 6. Bisacodyl suppository 10 mg per rectum daily p.r.n. 7. Metoprolol succinate XL 12.5 mg p.o. at bedtime. 8. Metoprolol succinate XL 25 mg p.o. daily. 9. Atorvastatin 20 mg p.o. q.p.m. 10. Latanoprost 1 drop both eyes at bedtime. 11. Combigan 1 drop both eyes b.i.d. 12. Potassium 20 mEq p.o. b.i.d. 13. Eliquis 5 mg p.o. b.i.d. 14. Memantine 10 mg p.o. b.i.d. 15. Ditropan 5 mg p.o. daily. 16. Candesartan 4 mg p.o. daily. 17. Sinemet 1 tab p.o. t.i.d. 18. Flomax 0.4 mg p.o. daily. 19. Allopurinol 150 mg p.o. q.a.m. 20. Dutasteride 0.5 mg p.o. daily. ALLERGIES: The patient has a listed allergy to SULFA DRUGS. FAMILY HISTORY: The patient does endorse a family history of cardiac disease as well as colon cancer. SOCIAL HISTORY: The patient resides in [facility] with his , Dominique. The patient has not smoked in 60 years; however, 60 years ago he did smoke cigars for about 2 years. The patient drinks about 3 to 4 ounces of alcohol daily. The patient is full code and his medical decision maker is his , Dominique Hoffman. REVIEW OF SYSTEMS: I performed a 14-point review of systems. All the pertinent positives and negatives are mentioned in the history of present illness. The remaining review of systems are negative. PHYSICAL EXAMINATION GENERAL: The patient is alert and appears to be in no pain; however, he is distressed about his incontinence as he is awaiting new change of clothes. VITAL SIGNS: Temperature 97.9, heart rate 81, respiratory rate 18, oxygen sat 96% on 2 L, blood pressure 172/124. HEENT: Normocephalic, atraumatic. No abrasions noted on the patient's head despite reporting hitting his head with a fall. Pupils are equal, round, and reactive to light and accommodation. EOMs are intact. NECK: Supple. No lymphadenopathy noted. There is some JVD appreciated. RESPIRATORY: No accessory muscle use and normal work of breathing; however, rales are audible bilaterally posteriorly. CARDIAC: Irregularly irregular. S1 and S2 present. No murmurs, rubs or gallops heard. ABDOMEN: Soft, nontender, nondistended. There are bowel sounds x4. EXTREMITIES: There is 2+ lower extremity edema up to the patient's knees. DP and PT pulses are intact and symmetric. MUSCULOSKELETAL: No clubbing or cyanosis noted. The patient exhibited 5/5 strength in all 4 extremities. NEUROLOGIC: The patient is alert and oriented x3. No pronator drift or droop. PSYCH: The patient is calm and cooperative. SKIN: There are no rashes or abnormalities seen. DIAGNOSTIC STUDIES/LAB DATA: White blood cell count 9.6, RBC 4.95, hemoglobin 14.7, hematocrit 45, platelets 133. INR 1.66. ABG; pH 7.47, pCO2 35, pO2 68, bicarb 26.4, O2 sat 94.7%. Sodium 139, potassium 3.9, chloride 104, carbon dioxide 30, BUN 21, creatinine 0.86, BUN-creatinine ratio 24.4, glucose 105, lactic acid 1.5, calcium 9.3, magnesium 1.8. Bilirubin 2.20, AST 18, ALT 6, alk phos 135. Troponins 0.03 two times, BNP 448. Total protein 6.8, albumin 3.9 , globulin 2.9, albumin/globulin ratio 1.3. Urinalysis with trace ketones. Diagnostics: The patient had a brain CT, which showed stable chronic findings without acute intracranial abnormalities. Chest x-ray showed bibasilar pleural effusions. ASSESSMENT: The patient is an 87-year-old male with a past medical history significant for frequent falls; atrial fibrillation/flutter, on Eliquis; hypertension; and a complex cardiac history, who presented to the ED with a fall as well as lower extremity edema and shortness of breath and will be admitted to the hospitalist service for management of acute hypoxic respiratory failure likely secondary to acute on chronic congestive heart failure exacerbation. PLAN: 1. Acute hypoxic respiratory failure, likely secondary to acute CHF exacerbation. The patient's presentation of increasing shortness of breath, orthopnea and increased lower extremity edema coupled with an elevated BNP and a chest x-ray with pulmonary edema and bibasilar pleural effusions suggest CHF as the most likely cause of this patient's hypoxic respiratory failure. He was given 40 mg of Lasix in the ED and we can evaluate tomorrow his need for additional IV Lasix. I will continue the patient's beta-stefan as well as his ARB. I will monitor him on telemetry and continue to follow his troponins to rule him out for ACS. The patient's EKG showed a slow Aflutter, which the patient has a known history of. At this point, it is unclear what has set off his CHF exacerbation, but arrhythmia and ischemia are both possible differentials. Pt did have recent echo in January during his last hospitalization. 2. History of AFib/Flutter. The patient is rate controlled in the ED on his metoprolol. I will continue this medication. I will also continue anticoagulating him with Eliquis and I will monitor him on telemetry. The patient is being followed by Dr. Wilhelm. Due to concern for tachybrady syndrome , the patient did have an event monitor, which showed tachycardic events and Dr. Wilhelm has discussed the possibility of eventually needing a pacemaker with the patient during a visit with him in January; however, at this time, Dr. Wilhelm opted to attempt medical management first with metoprolol. I have placed Mr. Hoffman on telemetry and we will have a low threshold for Cardiology consult if necessary. 3. History of falls and weakness. The patient did have a CT brain that showed no acute changes and on exam he had no focal deficits, so a neuro cause is less likely. The patient is afebrile without leukocytosis. He had a negative UA, so I do not think infection is contributing to this. The patient is on a number of anticholinergic medications, which could be contributing to his weakness and falls and of course his heart failure exacerbation and possible tachybrady syndrome could also be contributing. I have ordered PT for this patient as well. 4. Hypertension. I will continue the patient's candesartan. The patient is not sure whether he took this medication today, so this could be contributing to his hypertension along with CHF exacerbation and volume overload. 5. History of Parkinson's. Continue the patient's Sinemet. 6. History of dementia. I will continue memantine. 7. History of BPH. I will continue Flomax and finasteride. 8. Incontinence. The patient can have a condom cath. 9. Insomnia. I will hold ramelteon as this is a nonformulary medication, but I will continue the patient's p.r.n. ambien 10. Hypomagnesemia. The patient's magnesium was a little bit low at 1.8 and I will replete that. Will aim to keep Mag >2 11. Diet: The patient can have a low-sodium diet. 12. DVT prophylaxis: The patient is on Eliquis. 13. Code status: The patient is a full code. 14. Disposition: Inpatient. Anticipate discharge home to [facility] when medically stable. TIME SPENT: Time spent for this admission was 60 minutes and 35 minutes were spent with the patient discussing medications, past medical history and events leading up to the arrival today and performing a physical exam. The case has been reviewed with the attending, Dr. Dubon, who agrees with the plan of care. VERONICA STEPHEN, JERRY [id number]/[facility] #: [id number] AMI
[2018-03-09] MEDS: Atorvastatin* 20 MG TAB PO SCH (21:41)
[2018-03-09] MEDS: Latanoprost 0.005%* 2.5 ml BTL BOTH EYES SCH (21:41)
[2018-03-09] MEDS: Metoprolol Succinate XL TAB* 25 MG PO SCH (21:41)
[2018-03-09] MEDS: Apixaban* 5 MG TAB PO SCH (21:42)
[2018-03-09] MEDS: Carbidopa/Levodop 25/100 MG TAB(*) PO SCH (21:42)
[2018-03-09] MEDS: Zolpidem TAB* 5 MG PO PRN (21:42)
[2018-03-09] MEDS: Potassium Chlor TAB* 20 MEQ TAB.ER PO SCH (21:42)
[2018-03-09] MEDS: Brimonid/Timolol 0.2/0.5%(NF) 10 ML OPHTH.SOLN BOTH EYES SCH (21:44)
[2018-03-09] MEDS: Memantine TAB* 5 MG PO SCH (21:45)
[2018-03-09] MEDS: Docusate CAP* 100 MG PO SCH (21:45)
[2018-03-10 06:04] LABS: ABS Basophils 0.1 10^3/ul (0-0.2); ABS Eosinophils 0.2 10^3/ul (0-0.6); ABS Lymphocytes 1.5 10^3/ul (1.0-4.8); ABS Neutrophils 7.2 10^3/ul (1.5-7.7); ABS Nucleated RBC 0 10^3/ul; Eosinophil % 1.6 %; Hematocrit 46 % (42-52); Hemoglobin 15.7 g/dl (14.0-18.0); Lymphocyte % 15.1 %; Mean Corpuscular HGB Conc 34 g/dl (31-36); Mean Corpuscular Hemoglobin 30 pg (27-31); Mean Corpuscular Volume 89 fL (80-94); Mean Platelet Volume 7.9 fL (7.4-10.4); Nucleated Red Blood Cells % 0.1; Platelet Count 141 10^3/ul (150-450); Red Blood Count 5.18 10^6/ul (4.00-5.40); Red Cell Distribution Width 15 % (10.5-15)
[2018-03-10 06:23] LABS: Albumin/Globulin Ratio 1.3 (1-3); BUN/Creatinine Ratio 24.1 (8-20); Calcium 9.6 mg/dL (8.6-10.3); EGFR Non-African American 82.6 (>60); Potassium 3.7 mmol/L (3.5-5.0); Total Bilirubin 2.5 mg/dL (0.2-1.0)
[2018-03-10] MEDS: Valsartan TAB* 40 MG PO SCH (08:14)
[2018-03-10] MEDS: Tamsulosin CAP* 0.4 MG PO SCH (08:14)
[2018-03-10] MEDS: Metoprolol Succinate XL TAB* 25 MG PO SCH ×2 (08:15→20:27)
[2018-03-10] MEDS: Apixaban* 5 MG TAB PO SCH ×2 (08:15→20:26)
[2018-03-10] MEDS: Allopurinol TAB* 300 MG PO SCH (08:16)
[2018-03-10] MEDS: Carbidopa/Levodop 25/100 MG TAB(*) PO SCH ×3 (08:18→20:26)
[2018-03-10] MEDS: Docusate CAP* 100 MG PO SCH ×2 (08:18→20:23)
[2018-03-10] MEDS: Potassium Chlor TAB* 20 MEQ TAB.ER PO SCH ×2 (08:18→20:24)
[2018-03-10] MEDS: Finasteride TAB* 5 MG PO SCH (08:18)
[2018-03-10] MEDS: Memantine TAB* 5 MG PO SCH ×2 (08:19→20:23)
[2018-03-10] MEDS: Brimonid/Timolol 0.2/0.5%(NF) 10 ML OPHTH.SOLN BOTH EYES SCH (10:10)
[2018-03-10] MEDS ORDERED: hydrALAZINE IV* 20 MG/ML VIAL IV SLOW PU PRN (12:05)
[2018-03-10] MEDS ORDERED: Metoprolol Tartrate TAB* 25 MG PO ONE (12:05)
[2018-03-10] MEDS: BRIMONID BOTH EYES SCH ×2 (12:38→20:22)
[2018-03-10] MEDS: TIMOLOL BOTH EYES SCH ×2 (12:38→20:22)
--- NOTE | 2018-03-10 13:58 | PN ---
Subjective Date of Service: 03/10/18 Interval History: Pt feels well, c/o "no discomfort". Remembers the fall, but not where it happened. Objective Active Medications: Acetaminophen (Tylenol Tab*) 625 mg PO Q6H PRN PRN Reason: FEVER/PAIN Albuterol/Ipratropium (Duoneb (Albuterol 2.5 Mg/Ipratropium 0.5 Mg)) 1 neb INH Q6H PRN PRN Reason: SOB/WHEEZING Allopurinol (Zyloprim Tab*) 150 mg PO QAM [facility] Last Admin: 03/10/18 08:16 Dose: 150 mg Apixaban (Eliquis*) 5 mg PO BID [facility] Last Admin: 03/10/18 08:15 Dose: 5 mg Atorvastatin Calcium (Lipitor*) 20 mg PO QPM [facility] Last Admin: 03/09/18 21:41 Dose: 20 mg Bisacodyl (Dulcolax Supp*) 10 mg IN DAILY PRN PRN Reason: CONSTIPATION Brimonidine/Timolol (Combigan 0.2/0.5% (Nf)) 1 drop BOTH EYES BID [facility] Last Admin: 03/10/18 12:38 Dose: 1 drop Carbidopa/Levodopa (Sinemet 25/100 Tab(*)) 1 tab PO TID [facility] Last Admin: 03/10/18 08:18 Dose: 1 tab Docusate Sodium (Colace Cap*) 100 mg PO BID [facility] Last Admin: 03/10/18 08:18 Dose: 100 mg Finasteride (Proscar Tab*) 5 mg PO DAILY [facility]; Protocol Last Admin: 03/10/18 08:18 Dose: 5 mg Hydralazine HCl (Apresoline Iv*) 5 mg IV SLOW PU Q6H PRN PRN Reason: BLOOD PRESSURE Latanoprost (Xalatan 0.005%*) 1 drop BOTH EYES BEDTIME [facility] Last Admin: 03/09/18 21:41 Dose: 1 drop Magnesium Hydroxide (Milk Of Magnesia Liq*) 30 ml PO DAILY PRN PRN Reason: CONSTIPATION Memantine (Namenda Tab*) 10 mg PO BID [facility] Last Admin: 03/10/18 08:19 Dose: 10 mg Metoprolol Succinate (Toprol Xl Tab*) 12.5 mg PO BEDTIME [facility] Last Admin: 03/09/18 21:41 Dose: 12.5 mg Metoprolol Succinate (Toprol Xl Tab*) 25 mg PO DAILY [facility] Last Admin: 03/10/18 08:15 Dose: 25 mg Potassium Chloride (Klor Con Er Tab*) 20 meq PO BID [facility] Last Admin: 03/10/18 08:18 Dose: 20 meq Tamsulosin HCl (Flomax Cap*) 0.4 mg PO DAILY [facility] Last Admin: 03/10/18 08:14 Dose: 0.4 mg Valsartan (Diovan Tab*) 20 mg PO DAILY [facility] Last Admin: 03/10/18 08:14 Dose: 20 mg Zolpidem Tartrate (Ambien Tab*) 5 mg PO BEDTIME PRN PRN Reason: SLEEP Last Admin: 03/09/18 21:42 Dose: 5 mg Vital Signs - 8 hr 03/10/18 03/10/18 07:21 08:00 Temperature 98.1 F Pulse Rate 122 Respiratory 14 16 Rate Blood Pressure 174/131 (mmHg) O2 Sat by Pulse 94 Oximetry Oxygen Devices in Use Now: None Appearance: 87 yo M in nAD, aAOx3, forgetful Eyes: No Scleral Icterus, PERRLA Ears/Nose/Mouth/Throat: NL Teeth, Lips, Gums, Mucous Membranes Moist Neck: NL Appearance and Movements; NL JVP, Trachea Midline Respiratory: Symmetrical Chest Expansion and Respiratory Effort, Clear to Auscultation Cardiovascular: - - irregular Abdominal: NL Sounds; No Tenderness; No Distention, No Hepatosplenomegaly Lymphatic: No Cervical Adenopathy Extremities: No Clubbing, Cyanosis, - - +1 pitting pedla edema b/l Skin: No Nodules or Sclerosis, - - mild edema noted on R side of forehead Neurological: Alert and Oriented x 3, NL Muscle Strength and Tone Result Diagrams: 03/10/18 05:57 03/10/18 05:57 Assess/Plan/Problems-Billing Assessment: 87 yr old male PMH CAD s/p CABG, AVS s/p porcine AV, falls, LINQ implanted in the recent past was found to have new onset of a flutter in 01/2018 presents after another fall. Head ct done on admission neg of bleed - Patient Problems (1) Fall Comment: h/o frequent falls. will interrogate LINQ cont PT (2) Acute diastolic CHF (congestive heart failure) Comment: EF 55% in 01/2018 received a dose of Lasix IV at admission. Will tx with PO Lasix today Pt stated that leg edema is chronic and usually "worse than today" (3) Hypothyroidism Comment: TSH 1.6 in 01/2018 (4) Atrial flutter Comment: /fib-new since 01/2018, rate controlled cont lopressor/Toprol XL, Eliquis Echo in 01/2018 showed md MR and bioprosthetic aortic valve (5) CAD (coronary artery disease) Comment: Continue statin (6) HTN (hypertension) Comment: uncontrolled. Will add on a dose of lopressor 12.5 and start hydralazine prn (7) LFT elevation Comment: elevated T. bili and Alk. phos. will get alk phos isonezymes and indirect bili Asymptomatic from GI stanpoint (8) Parkinson disease Comment: controlled on Sinemet (9) DVT prophylaxis Comment: Eliquis Status and Disposition: inpatient
[2018-03-10] MEDS: Atorvastatin* 20 MG TAB PO SCH (17:05)
[2018-03-10] MEDS: Latanoprost 0.005%* 2.5 ml BTL BOTH EYES SCH (20:23)
[2018-03-10] MEDS: Zolpidem TAB* 5 MG PO PRN (22:16)
[2018-03-11 06:33] LABS: ABS Basophils 0.1 10^3/ul (0-0.2); ABS Eosinophils 0.2 10^3/ul (0-0.6); ABS Lymphocytes 1.5 10^3/ul (1.0-4.8); ABS Monocytes 1.3 10^3/ul (0-0.8); ABS Neutrophils 7.3 10^3/ul (1.5-7.7); ABS Nucleated RBC 0 10^3/ul; Eosinophil % 1.9 %; Hematocrit 43 % (42-52); Hemoglobin 14.7 g/dl (14.0-18.0); Lymphocyte % 14.4 %; Mean Corpuscular HGB Conc 34 g/dl (31-36); Mean Corpuscular Hemoglobin 30 pg (27-31); Mean Corpuscular Volume 89 fL (80-94); Mean Platelet Volume 8.3 fL (7.4-10.4); Nucleated Red Blood Cells % 0.1; Platelet Count 137 10^3/ul (150-450); Red Blood Count 4.86 10^6/ul (4.00-5.40); Red Cell Distribution Width 14 % (10.5-15); White Blood Count 10.3 10^3/ul (3.5-10.8)
[2018-03-11 06:48] LABS: Albumin 3.5 g/dL (3.2-5.2); Albumin/Globulin Ratio 1.3 (1-3); BUN/Creatinine Ratio 32.9 (8-20); Calcium 9.1 mg/dL (8.6-10.3); EGFR Non-African American 84.9 (>60); Globulin 2.7 g/dL (2-4); Potassium 3.4 mmol/L (3.5-5.0); Total Bilirubin 1.9 mg/dL (0.2-1.0); Total Protein 6.2 g/dL (6.4-8.9)
[2018-03-11] MEDS ORDERED: Potassium Chlor TAB* 20 MEQ TAB.ER PO ONE (08:49)
[2018-03-11] MEDS: Valsartan TAB* 40 MG PO SCH (09:21)
[2018-03-11] MEDS: Memantine TAB* 5 MG PO SCH ×2 (09:21→21:12)
[2018-03-11] MEDS: Docusate CAP* 100 MG PO SCH ×2 (09:21→21:11)
[2018-03-11] MEDS: BRIMONID BOTH EYES SCH ×2 (09:21→21:10)
[2018-03-11] MEDS: Tamsulosin CAP* 0.4 MG PO SCH (09:21)
[2018-03-11] MEDS: Finasteride TAB* 5 MG PO SCH (09:21)
[2018-03-11] MEDS: Carbidopa/Levodop 25/100 MG TAB(*) PO SCH ×3 (09:21→21:12)
[2018-03-11] MEDS: Apixaban* 5 MG TAB PO SCH ×2 (09:21→21:12)
[2018-03-11] MEDS: TIMOLOL BOTH EYES SCH ×2 (09:21→21:10)
[2018-03-11] MEDS: Metoprolol Succinate XL TAB* 25 MG PO SCH ×2 (09:21→21:11)
[2018-03-11] MEDS: Potassium Chlor TAB* 20 MEQ TAB.ER PO SCH ×2 (09:21→22:01)
[2018-03-11] MEDS: Allopurinol TAB* 300 MG PO SCH (09:22)
--- NOTE | 2018-03-11 14:22 | ECHO ---
Patient: TIM GARCIA [facility] Rec#: [id number] : 1930 Date: 03/11/2018 Age: 87y Height: 173 cm / 68.1 in Weight: 65 kg / 143.3 lbs Sex: M BSA: 1.78 Room#: [facility] Admit Date#: 03/09/2018 Type: Inpatient Referring: Dalia Kelly MD Reading: Terry Wilhelm MD Open Shank Coverer: Carolyn Kwok RDCS CC: Trevor Ku MD Transthoracic Echocardiogram Indication: Congestive heart failure BP: 157/113 HR: 66 Rhythm: A-Fib Findings History: A-fib, HTN, porcine AVR, Parkinson's, edema, CABG '11. Technical Comments: The study quality is fair. Completed at 1245. Left Ventricle: The left ventricular chamber size is decreased. Mild concentric left ventricular hypertrophy is observed. There is a prominent septal knuckle.up to 17 mm. There is normal left ventricular systolic function. The estimated ejection fraction is 55-60%. Post surgical hypokinesis of the interventricular septum is observed consistent with coronary artery bypass. The assessment of diastolic function is non-diagnostic. Left Atrium: The left atrium is severely dilated. Right Ventricle: The right ventricular cavity size is normal. The right ventricular global systolic function is low normal. Right Atrium: The right atrium is moderate to severely dilated. Aortic Valve: There is a trace of aortic regurgitation. There is no evidence of aortic stenosis. The mean gradient of the aortic valve is 6 mmHg. The peak instantaneous gradient of the aortic valve is 10 mmHg. A porcine bio-prosthetic aortic valve is present. The bio-prosthetic aortic valve appears to be functioning normally. Mitral Valve: There is mitral annular calcification. The mitral valve leaflets are mildly thickened. There is moderate mitral regurgitation. with a large central jet as well and a smaller eccentric posteriorly directed wall jet. At least moderate with perhaps moderate to severe MR. There is no evidence of mitral stenosis. Tricuspid Valve: The tricuspid valve leaflets are normal. There is trace to mild tricuspid regurgitation. The right ventricular systolic pressure is estimated at 33 mmHg. There is evidence that pulmonary hypertension may be underestimated. There is no tricuspid stenosis. Pulmonic Valve: The pulmonic valve appears normal. There is a trace pulmonic regurgitation. There is no pulmonic stenosis. Pericardium: There is no significant pericardial effusion. A left pleural effusion is present. Aorta: There is mild dilatation of the ascending aorta. The aortic arch is not well visualized. There is moderate dilatation of the aortic root. Pulmonary Artery: The main pulmonary artery appears normal. Venous: The inferior vena cava appears normal in size. There is less than 50% respiratory change in the inferior vena cava dimension. Conclusions Patient in atrial flutter during the exam. Mild concentric left ventricular hypertrophy is observed. There is a prominent septal knuckle.up to 17 mm. The estimated ejection fraction is 55-60%. Post surgical hypokinesis of the interventricular septum is observed consistent with coronary artery bypass. The left atrium is severely dilated. The right ventricular global systolic function is low normal. There is a trace of aortic regurgitation. The bio-prosthetic aortic valve appears to be functioning normally. There is moderate mitral regurgitation with a large central jet as well and a smaller eccentric posteriorly directed wall jet. At least moderate with perhaps moderate to severe MR. The MR varies somewhat with each beat due to the atrial flutter. There is trace to mild tricuspid regurgitation. There is evidence that pulmonary hypertension may be underestimated. The right ventricular systolic pressure is estimated at 33 mmHg. A left pleural effusion is present. There is mild dilatation of the ascending aorta. There is moderate dilatation of the aortic root. Similar to 01/26/18 Measurements Name Value Normal Range RVIDd (AP) 2D 3.6 cm (0.9 - 2.6) RVDdMajor (2D) 4.3 cm (2.2 - 4.4) RAd ISD 4CH 6.4 cm (3.4 - 4.9) RA (A4C)W 5.1 cm (2.9 - 4.6) IVSd (2D) 1.2 cm (0.6 - 1) LVPWd (2D) 1.1 cm (0.6 - 1) LVIDd (2D) 3.4 cm (3.6 - 5.4) LVIDs (2D) 2.8 cm - LV FS (2D) 19 % (25 - 45) Aortic Annulus 2.2 cm (1.4 - 2.6) Ao root diameter (2D) 4.5 cm (2.1 - 3.5) Ascending Ao 3.9 cm (2.1 - 3.4) LA dimension (AP) 2D 5.7 cm (2.3 - 3.8) LAd ISD 4CH 6.6 cm (2.9 - 5.3) LA ISD 4CH W 5.3 cm (2.5 - 4.5) Name Value Normal Range LA ESV BP (A/L) index 62 ml/m2 - Name Value Normal Range MV E-wave Vmax 0.9 m/sec - MV deceleration time 246 msec - MV A-wave Vmax 0.5 m/sec - MV E:A ratio 1.6 ratio - LV septal e' Vmax 0.04 m/sec - LV lateral e' Vmax 0.04 m/sec - Name Value Normal Range AV Vmax 1.6 m/sec - AV VTI 29.5 cm - AV peak gradient 10 mmHg - AV mean gradient 6 mmHg - LVOT diameter 2 cm - LVOT Vmax 0.6 m/sec - LVOT VTI 12 cm - LVOT peak gradient 1 mmHg - LVOT mean gradient 1 mmHg - DELVIS (continuity Vmax) 1.2 cm2 - DELVIS (continuity VTI) 1.3 cm2 - Name Value Normal Range MR Vmax 5.2 m/sec - MR VTI 154 cm - MR flow (PISA) 65.8 ml/sec - MR ERO 0.13 cm2 - MR PISA radius 0.5 cm - MR alias Vmax 41.9 cm/sec - Name Value Normal Range TR Vmax 2.5 m/sec - TR peak gradient 25 mmHg - RAP 8 mmHg - RVSP 33 mmHg - IVC diameter 1.9 cm - Name Value Normal Range PV Vmax 0.6 m/sec - PV peak gradient 1 mmHg -
[2018-03-11] MEDS ORDERED: Amiodarone TAB* 200 MG PO ONE (14:25)
--- NOTE | 2018-03-11 14:41 | CONS ---
CC: Dr. Ku; Dr. Wilhelm CARDIOLOGY CONSULTATION: DATE OF CONSULT: 03/11/18. CONSULTING PROVIDER: Dr. Kelly. REASON FOR CONSULT: CHF, atrial flutter. HISTORY OF PRESENT ILLNESS: This is a very pleasant 87-year-old gentleman known to me from past evaluations as an outpatient. He is a somewhat poor historian and history was obtained from him, Dr. Kelly, the admission note of and my last office note from 02/09/18. He has a history of coronary artery disease, aortic valve replacement, coronary artery bypass graft and hypertension and mild sinus tachybrady syndrome and he has developed mild dementia. He lives at [facility] in the [facility] care. He has had problems with episodes of falling and episodes of paroxysmal atrial arrhythmias, most of what appears to be atrial flutter. He had an admission in January with a fall and was noted to be in AFib and aflutter with rapid ventricular response. A LINQ device was implanted. I saw him in followup after that. It was not clear whether he was symptomatic from the atrial flutter, but the monitor was showing frequent episodes of atrial flutter with rates to the 140s, possible AFib. Because of all those findings, he was started on Eliquis and metoprolol 25 mg. He reported being more foggy, but it waxed and waned even before he started his medicines. We discussed the possibility of a pacemaker for tachybrady syndrome ; however, given the lack of bradycardia and unclear relationship of his symptoms, we decided to continue medical management and observe. Over recent weeks, he has had increased frequency of his atrial arrhythmias and he says intermittent episodes of shortness of breath, he is not aware of the rapid heart beats. He was admitted on the because of weakness and a fall and increased lower extremity edema and shortness of breath. He was treated with IV diuretics with improvement and he has continued to have flutter with elevated ventricular response. Of note, his EKG from 03/09/18 revealed what appeared to be an atrial flutter with controlled ventricular response in the 60s. He denies orthopnea and peripheral edema today. No shortness of breath or chest pain. No bleeding problems. PAST MEDICAL HISTORY: Includes hypertension, coronary artery disease, aortic valve disease status post bioprosthetic AVR, Parkinson's, aortic insufficiency status post Polina-Melendez valve #27 in January 2011, vision impairment in July 2011 with field cut and memory concentration issues noted after knee surgery , paroxysmal atrial fibrillation in January 2018, prostatic hypertrophy. PAST SURGICAL HISTORY: Includes TURP in 1988; knee replacement in July 2011; aortic valve replacement in February 2011 with coronary artery bypass graft and saphenous vein graft to the LAD, OM1, OM2 at [place], [place] as well as bioprosthetic aortic valve replacement with a Polina-Edward valve # 27. He had TIA in April 2013 and he has mild carotid disease based on a carotid study done in 2013. He has had tonsillectomy, appendectomy, bilateral cataracts and right knee replacement. MEDICATIONS: As an inpatient include: 1. Acetaminophen. 2. DuoNeb 1 neb q.6 p.r.n. 3. Eliquis 5 mg b.i.d. 4. Allopurinol 150 mg q.a.m. 5. Atorvastatin 20 mg daily. 6. Combigan both eyes b.i.d. 7. Bisacodyl 10 mg daily p.r.n. 8. Sinemet 25/100 of 1 tab t.i.d. 9. Colace 100 mg b.i.d. 10. Finasteride 5 mg a day. 11. Hydralazine 5 mg IV q.6 p.r.n. 12. Magnesium hydroxide 30 mL p.r.n. 13. Namenda 10 mg b.i.d. 14. Metoprolol succinate 12.5 mg at bedtime and 25 mg each morning. 15. Potassium chloride 20 mEq b.i.d. 16. Tamsulosin 0.4 mg a day. 17. Valsartan 20 mg daily. 18. Ambien 5 mg a day. ALLERGIES: Include SULFA. 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 He is , lives at [facility] and his Dominique lives there too. He quit smoking 60 years ago. REVIEW OF SYSTEMS: Review of systems x10 was negative except as above. He does report a fogginess in his mentation, which has been coming and going in recent weeks. PHYSICAL EXAM: He is a well-developed, well-nourished gentleman, in no apparent distress. He is not sure whether it is 18 or 19, or whether it is February or March. He does not know the date. He recognized me but could not say my name. He is aware he is in the hospital. He does not remember the fall. Vital Signs: Include blood pressure 104/67, pulse of 88, O2 sat is 94%. No significant JVD. Carotids 2+. No cervical adenopathy or thyromegaly. Extraocular muscles intact. Sclerae anicteric. Atraumatic, normocephalic. Cardiac Exam: S1, S2 with a 2/6 systolic ejection murmur at the base. Chest was clear. Abdominal Exam: Bowel sounds present. Nontender. Femoral pulses intact without bruits. Distal pulses intact. No edema. Motor strength 5/5 bilaterally. Deep tendon reflexes are 2/4. Skin turgor poor. DIAGNOSTIC STUDIES: His echo from January revealed moderate LVH, EF of 55% to 60%, LA severely dilated, right atrium mild to moderately dilated, trace of aortic insufficiency, bioprosthetic valve present and appears to be functioning normally. Moderate MR, trace TR, trace PI, mild dilatation of the ascending aorta and aortic root. Compared to the previous study in April 2015, the MR is moderate instead of mild. His last nuclear tress test from 2015 revealed no evidence of ischemia or infarct, normal LV function. IMPRESSION: My impression is that Mr. Gomez was admitted to the floor and evidence of decompensated congestive heart failure. He seems to be improved now but continues to be in atrial flutter. I suspect that the atrial flutter may be causing some degree of decompensation due to poor rate control. We did discuss options for treatment including placement of pacemaker or antiarrhythmic therapy. 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 It also appears that his blood pressures have improved with diuresis and we may be able to discontinue his valsartan. We did discuss the potential for arrhythmia and the need for continued monitoring and he understands and agrees to proceed. I therefore, recommended the following: Would hold his valsartan for now. Would obtain an EKG and if his QTs are acceptable, would start Betapace 40 mg b.i.d. Would reduce his metoprolol to allow rate control hopefully without significant bradycardia or fogginess though. If he is able to tolerate the Betapace, could consider an attempt at cardioversion if he fails to convert on his own. He is to continue on anticoagulation. I would check an echo to confirm that his LV function is stable given his recent heart failure. I suspect that this may be due to diastolic dysfunction and decompensation due to tachycardia with hypertensive heart disease. Would try to maintain his potassium over 4. Further recommendation will depend on his clinical course. [id number]/[facility] #: [id number] addendum: EKG demonstrated a prolonged QTC to approx 450 ms which contraindicates use of betapace. Will continue rate control and start amiodarone as d/w Dr. Kelly. [facility]
--- NOTE | 2018-03-11 16:31 | PN ---
Subjective Date of Service: 03/11/18 Interval History: Pt has no new complaints, denies SOB, CP, continues to be in rate controlled A. fib on telem. Objective Active Medications: Acetaminophen (Tylenol Tab*) 625 mg PO Q6H PRN PRN Reason: FEVER/PAIN Albuterol/Ipratropium (Duoneb (Albuterol 2.5 Mg/Ipratropium 0.5 Mg)) 1 neb INH Q6H PRN PRN Reason: SOB/WHEEZING Allopurinol (Zyloprim Tab*) 150 mg PO QAM [facility] Last Admin: 03/11/18 09:22 Dose: 150 mg Amiodarone HCl (Cordarone Tab*) 200 mg PO BID [facility] Apixaban (Eliquis*) 5 mg PO BID [facility] Last Admin: 03/11/18 09:21 Dose: 5 mg Atorvastatin Calcium (Lipitor*) 20 mg PO QPM [facility] Last Admin: 03/10/18 17:05 Dose: 20 mg Bisacodyl (Dulcolax Supp*) 10 mg [place] DAILY PRN PRN Reason: CONSTIPATION Brimonidine/Timolol (Combigan 0.2/0.5% (Nf)) 1 drop BOTH EYES BID [facility] Last Admin: 03/11/18 09:21 Dose: 1 drop Carbidopa/Levodopa (Sinemet 25/100 Tab(*)) 1 tab PO TID [facility] Last Admin: 03/11/18 14:12 Dose: 1 tab Docusate Sodium (Colace Cap*) 100 mg PO BID [facility] Last Admin: 03/11/18 09:21 Dose: 100 mg Finasteride (Proscar Tab*) 5 mg PO DAILY [facility]; Protocol Last Admin: 03/11/18 09:21 Dose: 5 mg Hydralazine HCl (Apresoline Iv*) 5 mg IV SLOW PU Q6H PRN PRN Reason: BLOOD PRESSURE Last Admin: 03/11/18 03:39 Dose: 5 mg Latanoprost (Xalatan 0.005%*) 1 drop BOTH EYES BEDTIME [facility] Last Admin: 03/10/18 20:23 Dose: 1 drop Magnesium Hydroxide (Milk Of Magnesia Liq*) 30 ml PO DAILY PRN PRN Reason: CONSTIPATION Memantine (Namenda Tab*) 10 mg PO BID [facility] Last Admin: 03/11/18 09:21 Dose: 10 mg Metoprolol Succinate (Toprol Xl Tab*) 12.5 mg PO BEDTIME [facility] Last Admin: 03/10/18 20:27 Dose: 12.5 mg Metoprolol Succinate (Toprol Xl Tab*) 25 mg PO DAILY [facility] Last Admin: 03/11/18 09:21 Dose: 25 mg Potassium Chloride (Klor Con Er Tab*) 20 meq PO BID [facility] Last Admin: 03/11/18 09:21 Dose: 20 meq Tamsulosin HCl (Flomax Cap*) 0.4 mg PO DAILY [facility] Last Admin: 03/11/18 09:21 Dose: 0.4 mg Zolpidem Tartrate (Ambien Tab*) 5 mg PO BEDTIME PRN PRN Reason: SLEEP Last Admin: 03/10/18 22:16 Dose: 5 mg Vital Signs - 8 hr 03/11/18 03/11/18 03/11/18 10:30 11:15 15:40 Temperature 97.5 F 97.1 F Pulse Rate 88 80 88 Respiratory 14 16 Rate Blood Pressure 104/67 119/79 140/92 (mmHg) O2 Sat by Pulse 94 93 94 Oximetry Oxygen Devices in Use Now: None Appearance: 87 yo M in nad, AAOx3, forgetful Eyes: No Scleral Icterus, PERRLA Ears/Nose/Mouth/Throat: NL Teeth, Lips, Gums, Mucous Membranes Moist Neck: NL Appearance and Movements; NL JVP, Trachea Midline Respiratory: Symmetrical Chest Expansion and Respiratory Effort, Clear to Auscultation Cardiovascular: - - irregular Abdominal: NL Sounds; No Tenderness; No Distention, No Hepatosplenomegaly Lymphatic: No Cervical Adenopathy Extremities: No Clubbing, Cyanosis, - - +1 pitting pedal edema b/l Skin: No Rash or Ulcers, No Nodules or Sclerosis Neurological: NL Muscle Strength and Tone Result Diagrams: 03/11/18 06:02 03/11/18 06:02 Assess/Plan/Problems-Billing Assessment: 87 yr old male PMH CAD s/p CABG, AVS s/p porcine AV, falls, LINQ implanted in the recent past was found to have new onset of a flutter in 01/2018 presents after another fall. Head ct done on admission neg of bleed - Patient Problems (1) Fall Comment: h/o frequent falls. On LINQ interrogation pt had been in A. fib only 1.8 % of time, HR up to 136. No bradycardia noted. Pt had stayed in rate controled A. fib throughout his hospital stay. (2) Acute diastolic CHF (congestive heart failure) Comment: On Echo: mod to severe MR, EF 55-60% today pt is euvolemic. suspect the acute diastolic cHF occured as effect of fall and rapid A. fib (3) Hypothyroidism Comment: TSH 1.6 in 01/2018 (4) Atrial flutter Comment: Fib-new since 01/2018, rate controlled cont Toprol XL, Ricardo Consulted Dr. Wilhelm who recommended Amiodarone 200 mg BID x 3-4 days then 200 mg daily. Will monitor pt overnight and likley d/c tomorrow (5) CAD (coronary artery disease) Comment: Continue statin (6) HTN (hypertension) Comment: controlled. (7) LFT elevation Comment: elevated T. bili and Alk. phos. will get alk phos isonezymes and direct bili Asymptomatic from GI stanpoint (8) Parkinson disease Comment: controlled on Sinemet (9) DVT prophylaxis Comment: Eliquis Status and Disposition: inpatient
[2018-03-11] MEDS: Atorvastatin* 20 MG TAB PO SCH (17:16)
[2018-03-11] MEDS: Zolpidem TAB* 5 MG PO PRN (21:11)
[2018-03-11] MEDS: Amiodarone TAB* 200 MG PO SCH (21:11)
[2018-03-11] MEDS: Latanoprost 0.005%* 2.5 ml BTL BOTH EYES SCH (21:15)
[2018-03-12 06:55] LABS: BUN/Creatinine Ratio 35.4 (8-20); Calcium 9.1 mg/dL (8.6-10.3); EGFR Non-African American 88.5 (>60); Magnesium 1.9 mg/dL (1.9-2.7); Potassium 3.9 mmol/L (3.5-5.0)
[2018-03-12] MEDS: Metoprolol Succinate XL TAB* 25 MG PO SCH (08:32)
[2018-03-12] MEDS: Tamsulosin CAP* 0.4 MG PO SCH (10:01)
[2018-03-12] MEDS: Finasteride TAB* 5 MG PO SCH (10:01)
[2018-03-12] MEDS: Amiodarone TAB* 200 MG PO SCH (10:01)
[2018-03-12] MEDS: Potassium Chlor TAB* 20 MEQ TAB.ER PO SCH (10:01)
[2018-03-12] MEDS: BRIMONID BOTH EYES SCH (10:01)
[2018-03-12] MEDS: TIMOLOL BOTH EYES SCH (10:01)
[2018-03-12] MEDS: Memantine TAB* 5 MG PO SCH (10:02)
[2018-03-12] MEDS: Carbidopa/Levodop 25/100 MG TAB(*) PO SCH ×2 (10:02→13:02)
[2018-03-12] MEDS: Docusate CAP* 100 MG PO SCH (10:02)
[2018-03-12] MEDS: Apixaban* 5 MG TAB PO SCH (10:02)
[2018-03-12] MEDS: Allopurinol TAB* 300 MG PO SCH (10:03)
[2018-03-12 11:48] VITALS: BP 127/89
--- NOTE | 2018-03-12 12:12 | DS ---
CC: Dr. Ku; Dr. Wilhelm * DATE OF ADMISSION: 03/09/2018. DATE OF DISCHARGE: 03/12/2018. PRIMARY CARE PHYSICIAN: Dr. Ku. BOBBIN PRESSER: Dr. Wilhelm. PRINCIPAL DIAGNOSES: 1. Acute on chronic diastolic congestive heart failure. 2. Acute hypoxic respiratory failure secondary to CHF exacerbation. 3. Atrial fib/flutter. SECONDARY DIAGNOSES: 1. Falls and weakness. 2. Hypertension. 3. Parkinson's. 4. Dementia. 5. BPH. DISCHARGE MEDICATIONS: 1. Ambien 5 mg p.o. at bedtime prn insomnia. 2. Milk of Magnesia 30 ml p.o. daily prn constipation. 3. Rozerem 8 mg p.o. at bedtime. 4. Tylenol 650 mg p.o. q.6 hours prn pain. 5. Dulcolax 10 mg p.r. daily prn constipation. 6. Metoprolol XL 25 mg p.o. q.a.m., 12.5 mg p.o. q.p.m. 7. Lipitor 20 mg p.o. at bedtime. 8. Xalatan one drop to both eyes at bedtime. 9. Combigan one drop to both eyes b.i.d. 10. Potassium Chloride 20 mEq p.o. b.i.d. 11. Eliquis 5 mg p.o. b.i.d. 12. Memantine 10 mg p.o. b.i.d. 13. Oxybutynin 5 mg p.o. daily. 14. Candesartan 4 mg p.o. daily. 15. Sinemet 25/100 one tab p.o. t.i.d. 16. Flomax 0.4 mg p.o. daily. 17. Allopurinol 150 mg p.o. daily. 18. Avodart 0.5 mg p.o. daily. 19. Amiodarone 200 mg p.o. b.i.d. times 4 days, then 200 mg p.o. daily. HOSPITAL COURSE: Mr. Hoffman is an 87-year-old male who has a history of A- fib on Eliquis, hypertension, Parkinson's, and a bioprosthetic aortic valve who presented to the emergency room on 03/09/2018 with complaints of weakness and fall, increased lower extremity edema, and shortness of breath. The patient was found to be in acute on chronic diastolic CHF with acute hypoxic respiratory failure. The patient was admitted and diuresed with Lasix. Ultimately it was determined that his acute CHF exacerbation was likely secondary to being in prolonged A-fib/flutter. Reportedly, typically the patient is in A-fib/flutter for only a very short period of time and converts spontaneously; however, this has been a prolonged episode. The patient's heart rate also was not very well controlled. While being diuresed, the patient's heart rate control was obtained with adding Amiodarone 200 mg p.o. twice daily. The patient will continue on this for four more days and then decrease to 200 mg p.o. daily. The patient's heart rate at this point is in the 60s to 90s range. He has a LINQ monitor in place. His heart rate will be monitored from afar at the Cardiology office. He will remain on Eliquis. The patient is not being discharged on diuretic therapy; however, he will need to be monitored very closely for signs of fluid overload and if this becomes the case, he will need to have Lasix added back. In terms of the falls and weakness, perhaps this was related to being in A-fib flutter and acute on chronic CHF; however, a big concern of mine is the fact that the patient was using Ambien, Rozerem, and Tylenol PM for sleep. I have discontinued the Tylenol PM at this point. The patient will need to be monitored for worsened insomnia and hopeful improvement in his falls. The patient was seen by Physical Therapy on March 10 and March 11. The patient was found to demonstrate decreased overall mobility. It was felt that he needs hands on assist and verbal cuing to complete transfers and ambulation. At this point, the patient is being discharged to the [facility] at [facility]. On the day of discharge, the patient is awake and alert, sitting up in bed in no acute distress. His vital signs are stable with a blood pressure that is moderately elevated (this is in the setting of holding his Candesartan). The patient will be resumed back on his Candesartan. His blood pressure will need to be monitored. His cardiac exam reveals a normal S1, S2, slightly irregular, it is in a controlled rate. There is no lower extremity edema. His lungs are clear, but diminished throughout. His abdomen is soft, nontender, nondistended. FOLLOW-UP CONCERNS: The patient is being discharged to [facility] at [facility], 03/12/2018. The patient should follow-up with Dr. Wilhelm in the next one to two months. ACTIVITY LEVEL: As tolerated. DIET: Heart-healthy 2 gm sodium diet. CONDITION ON DISCHARGE: Improved. TIME SPENT: Forty minutes were spent discharging this patient. [id number]/[facility] #: [id number] [facility]
[2018-03-12] MEDS ORDERED: Memantine TAB* 10 MG PO SCH (21:00)
[2018-03-15 15:22] LABS: ALP Bone 46.2 IU/L (12.1-42.7); ALP Liver 1 79.6 IU/L (16.2-70.2); ALP Liver 1% 55.3 % (27.8-76.3); ALP Liver 2 14.1 IU/L (0.0-5.8); ALP Liver 2% 9.8 % (0.0-8.0); ALP Placental NotPresent; Alkaline Phosphatase 144 U/L (40 - 129)
== END 2018-03-12 14:00 | DRG 291 ==
LOC: ED 10:29 → MEDTELE 13:57
PROVIDERS: ADMIT Internal Medicine; ATTEND Hospitalist
DX: I11.0 Hypertensive heart disease with heart failure (principal); J96.01 Acute respiratory failure with hypoxia; I48.92 Unspecified atrial flutter; I48.91 Unspecified atrial fibrillation; I50.33 Acute on chronic diastolic (congestive) heart failure; F02.80 Dementia in other diseases classified elsewhere, unspecified severity, without behavioral disturbance, psychotic disturbance, mood disturbance, and anxiety; N40.0 Benign prostatic hyperplasia without lower urinary tract symptoms; I34.0 Nonrheumatic mitral (valve) insufficiency; R32 Unspecified urinary incontinence; M10.9 Gout, unspecified; Z96.651 Presence of right artificial knee joint; G47.00 Insomnia, unspecified; G20 Parkinson's disease; E83.42 Hypomagnesemia; I25.10 Atherosclerotic heart disease of native coronary artery without angina pectoris; E78.00 Pure hypercholesterolemia, unspecified; F32.9 Major depressive disorder, single episode, unspecified; H40.9 Unspecified glaucoma; R40.2412 Glasgow coma scale score 13-15, at arrival to emergency department; E03.9 Hypothyroidism, unspecified; R94.5 Abnormal results of liver function studies; Z90.89 Acquired absence of other organs; Z98.42 Cataract extraction status, left eye; Z98.41 Cataract extraction status, right eye; Z88.2 Allergy status to sulfonamides; Z82.49 Family history of ischemic heart disease and other diseases of the circulatory system; Z95.1 Presence of aortocoronary bypass graft; Z86.73 Personal history of transient ischemic attack (TIA), and cerebral infarction without residual deficits; Z91.81 History of falling; Z79.01 Long term (current) use of anticoagulants; Z95.2 Presence of prosthetic heart valve; Z80.0 Family history of malignant neoplasm of digestive organs; Z97.4 Presence of external hearing-aid; Z87.891 Personal history of nicotine dependence; Z72.89 Other problems related to lifestyle
CPT/HCPCS: 36415; 70450; 71045; 80048; 80053; 81003; 82247; 82248; 82803; 83605; 83735; 83880; 84080; 84484; 85025; 85610; 85730; 93005; 93306; 99284; A9270-GY; G8978-GP-CJ; G8979-GP-CI; J0360; J1940; J3475